=== PATIENT | female | born 1930 | race Caucasian/White ===

== ENCOUNTER 2016-10-20 21:05 | Inpatient (IN) ==
[2016-10-20] MEDS ORDERED: MORPHINE 2 MG/1 ML SYRINGE ONE (22:13)
[2016-10-20] MEDS ORDERED: MORPHINE 2 MG/1 ML SYRINGE IV STA (22:15)
--- NOTE | 2016-10-20 22:49 | CT Report ---
CT pelvis wo con Indication: Pain after falling injury Comparison: None available Technique: Axial CT imaging of the pelvis is performed without contrast. Computer reformatting is viewed in sagittal and coronal plane. Findings: No evidence of fracture seen. The alignment of the joints appears normal. Muscles and tendons appear within normal limits for CT. Mild bilateral hip degenerative change is present. No soft tissue abnormality is seen. Impression: No evidence of acute injury demonstrated. PROCEDURE INTERPRETED AT [facility] DEPARTMENT OF RADIOLOGY Final Report Signed by: Dr. Darien Jarvis
--- NOTE | 2016-10-20 23:54 | Emergency Department Note ---
Bravo Dietz Brooke, am scribing for, and in the presence of, Chery Wolf MD 21: 48. Maryann Dietz Leanne, MD, personally performed the services described in this documentation, ascribed by Kacey Cordon in my presence, and it is both accurate and complete 354 . Arrival - Arrival Chief Complaint: Fall ED Nursing Triage Note: C/C fall Saturday at home. Was seen at [place] yesterday for hip pain and sent home. Pt c/o hip pain that started in right hip and has moved to left hip. Mode of Arrival: Stretcher Limitations: No Limitations Source: Patient, Family, RN Notes Reviewed Time Seen by Provider: 10/20/16 21:33 - History of Present Illness HPI Narrative: Patient is a 86 year old female brought into the ED by EMS with c/o bilateral hip pain. Family says Patient fell out of bed onto her right side on Saturday. Patient went to [facility] ED on and Family says hip and pelvis x-rays were done but they were told Patient only had ecchymosis. Family says [facility] did not do any CT scans. Family wants a second opinion because of Patient not being able to stand or walk. Family says they are unable to get Patient up due to Patient not being able to walk. Family says Patient has been "getting worse" since a fall, three weeks ago, where she crushed her left hand. Patient has 7.5mg [place] that she has been taking for the pain but says they do not help with the hip pain. Patient has PMHx of cardiac dysrhythmia, CHF, HTN, NIDDM, and GERD. Onset (ago): day(s) (5) Allergies/Adverse Reactions: Allergies Allergy/AdvReac Type Severity Reaction Status Date / Time No Known Allergies Allergy Unverified 10/20/16 21:18 Review of System - Review of System 12 point system: reviewed and no additional remarkable complaints except as stated - Review of System Constitutional: Absent: fever Respiratory: Absent: respiratory distress Musculoskeletal: Present: other (bilateral hip pain) Skin: Absent: rash Medical,Surgical,& Family Hx - Medical History Cardio: History of: Cardiac Dysrhythmia, CHF, Hypertension Endocrine: History of: Diabetes Mellitus (NIDDM) Gastrointestinal: History of: GERD Musculoskeletal: History of: Musculoskeletal Problems (fx left arm) - Social History Smoking Status: Never smoker Frequency of Alcohol Use: None Type of Drug Use: None Exam Vital Signs: Vital Signs Temperature 98.4 F 10/20/16 21:05 Pulse Rate 90 10/20/16 21:05 Respiratory Rate 18 10/20/16 21:05 Blood Pressure 126/87 10/20/16 21:05 O2 Sat by Pulse Oximetry 94 L 10/20/16 21:05 - General General appearance: alert, in no apparent distress - Head Head exam: Present: atraumatic, normocephalic - Eye Eye exam: Present: normal appearance, PERRL, EOMI - ENT ENT exam: Present: normal exam - Neck Neck exam: Present: normal inspection - Chest Chest inspection: Present: normal inspection, symmetric chest wall rise - Respiratory Respiratory exam: Present: normal lung sounds bilaterally - Cardiovascular Cardiovascular exam: Present: regular rate, normal rhythm, normal heart sounds - Abdominal Exam Abdominal exam: Present: soft. Absent: distention, tenderness - Extremities Exam Extremities exam: Present: tenderness (right lateral hip tenderness) - Back Exam Back exam: Present: normal inspection - Neurological Exam Neurological exam: Present: alert, oriented X3 - Psychiatric Psychiatric exam: Present: normal affect, normal mood - Skin Skin exam: Present: warm, dry, intact, normal color Results - Diagnostic Findings Procedure: CT: report reviewed by me (CT pelvis wo con: No evidence of acute injury demonstrated.) Disposition Clinical Impression: Unable to ambulate, Left hip pain Case discussed with: patient Condition: Stable Additional Instructions: Admit to hospitalist for MRI
--- NOTE | 2016-10-21 02:23 | Hospitalist History & Physical ---
Assessment and Plan - Time spent with patient Time spent with patient: Greater than 30 minutes (1) Pain of both hip joints Problem details: due to fall, Rt> Lt Status: Acute Assessment and plan: r/o frx, MRI. No labs done in ER will do basic labs Current Visit: Yes (2) Recurrent falls Status: Acute Assessment and plan: PT/OT, likely to need placement, check Vit D, EKG, U/A, Current Visit: Yes (3) Debility, unspecified Status: Acute Current Visit: Yes (4) Arthritis Status: Acute Current Visit: Yes (5) HTN (hypertension) Status: Acute Current Visit: Yes History of Present Illness Chief complaint: hip pain History of present illness: Ms. Manning is a 86 year old female presented with unresolving hip pain first towards the right hip now the left hip also. Patient has a full number of days ago on Saturday reportedly on the right hip when [facility] and they did x- rays there and she was told there was no hip fracture and was discharged home. Patient stated now she has pain on the right hip as well as the left hip and she and her family wanted a second opinion. Of note few weeks ago patient had a fall and and had a fracture in her right upper extremity with cast on. Patient lives with her . Patient denies chest pain or SOB or nausea or vomiting or diarrhea or hemoptysis or melena or blurred vision or palpitation. CT scan of the pelvis done in the ER showed no evidence of fracture. Recommendation was to admit the patient to undergo MRI imaging. No laboratory testing/EKG done in ER. Home Medications Medication Instructions Recorded Confirmed Type Allopurinol 300 mg PO DAILY 10/21/16 10/21/16 History Cyanocobalamin Inj [Vitamin B12 1,000 mcg IM Q30D 10/21/16 10/21/16 History Inj] Diltiazem HCl [Diltiazem ER (12 120 mg PO DAILY 10/21/16 10/21/16 History hr)] Furosemide Tab [Lasix Tab] 80 mg PO BID 10/21/16 10/21/16 History Isosorbide Dinitrate 20 mg PO TID 10/21/16 10/21/16 History Nitroglycerin [Nitroglycerin SL 0.4 mg SL DIRECTED 10/21/16 10/21/16 History Tab] Omeprazole 20 mg PO DAILY 10/21/16 10/21/16 History Potassium Chloride 10 meq PO DAILY 10/21/16 10/21/16 History Spironolactone [Aldactone] 25 mg PO DAILY 10/21/16 10/21/16 History Warfarin [Coumadin] 2.5 mg PO DAILY 10/21/16 10/21/16 History metFORMIN [Glucophage] 1,000 mg PO DAILY 10/21/16 10/21/16 History Allergies Allergy/AdvReac Type Severity Reaction Status Date / Time No Known Allergies Allergy Unverified 10/20/16 21:18 Medical,Surgical,& Family Hx - Medical History Cardio: History of: Cardiac Dysrhythmia, CHF, Hypertension Endocrine: History of: Diabetes Mellitus (NIDDM) Gastrointestinal: History of: GERD Musculoskeletal: History of: Musculoskeletal Problems (fx left arm) - Social History Smoking Status: Never smoker Frequency of Alcohol Use: None Type of Drug Use: None 12 point system: reviewed and no additional remarkable complaints except as stated Exam - Constitutional Vitals: Period Temp Pulse Resp BP Sys/Ghotra Pulse Ox Last 24 Hr 98.4 F-98.4 F 90-90 18-18 126-126/87-87 94 Exam: General: a&ox3, NAD Neck: no jvd Heart: s1s2, RR Lung: ctab, no wheezing abd: soft, nontender, ND Ext: no edema. Pt couldn't lift any Lito due to pain. Tenderness of R hip >L Hip. LROM of Lito b/l Skin: Warm and dry HEENT: PERRLA Neuro: Limited. a&ox3, no sensory loss, LUEx has cast on. wiggle toes, can't lift either Lito.
[2016-10-21] MEDS ORDERED: ACETAMINOPHEN 325 MG TABLET PO PRN (02:34)
[2016-10-21] MEDS ORDERED: ONDANSETRON 4 MG/2 ML VIAL IV PRN (02:34)
[2016-10-21] MEDS ORDERED: DOCUSATE SODIUM 100 MG CAPSULE PO PRN (02:34)
[2016-10-21] MEDS: SODIUM CHLORIDE 0.9% 1,000 ML IV SCH ×2 (03:39→17:09)
[2016-10-21] MEDS ORDERED: DEXTROSE 50% 25 GM/50 ML VIAL IV PRN (04:43)
[2016-10-21] MEDS ORDERED: GLUCAGON 1 MG VIAL IM PRN (04:43)
[2016-10-21 05:53] LABS: Basophils % 0.3 % (0.0-0.8); Eosinophils # 0.2 10*3/uL (0.0-0.87); Eosinophils % 1.6 % (0.00-10.9); Hematocrit 31.8 VOL% (35.7-47.0); Hemoglobin 10.6 GM/DL (12.0-16.0); Immature Granulocytes % 1.2 %; Immature Granulocytes Absolute 0.12 #; Lymphocytes # 1.9 10*3/uL (1.4-4.0); Lymphocytes % 18.7 % (21.3-54.2); Mean Corpuscular HGB Conc 33.3 GM/DL (32-36); Mean Corpuscular Hemoglobin 33 PG (27-34); Mean Corpuscular Volume 98.1 FL (87-102); Mean Platelet Volume 10.4 FL (9.6-12.0); Monocytes # 0.6 10*3/uL (0.11-0.8); Monocytes % 5.8 % (1.7-12.7); Neutrophils # 7.4 10*3/uL (1.4-7.4); Neutrophils % 72.4 % (38.7-73.9); Platelet Count 278 T/CUMM (130-400); Red Blood Count 3.24 MC/CUMM (3.8-5.5); Red Cell Distribution Width 15.6 % (9.3-17.3); White Blood Count 10.2 T/CUMM (4-12)
[2016-10-21 06:54] LABS: Calcium 10.2 MG/DL (8.5-10.1); Osmolality,Calculated 292.4 MOS/KG (273-304); Potassium 3.9 MMOL/L (3.5-5.1)
[2016-10-21 07:20] LABS: PT Patient Result 80.4 SECS
[2016-10-21 07:24] LABS: INR 6.7; Partial Thromboplastin Time 112.3 SECS (0-40)
[2016-10-21] MEDS ORDERED: ENOXAPARIN 40 MG/0.4 ML SYRINGE SUBCUT SCH (09:00)
--- NOTE | 2016-10-21 09:40 | EKG Report ---
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
[2016-10-21] MEDS: ISOSORBIDE DINITRATE 20 MG TABLET PO SCH ×3 (09:58→21:14)
[2016-10-21] MEDS: ALLOPURINOL 300 MG TABLET PO SCH (09:58)
[2016-10-21] MEDS: DILTIAZEM CD 120 MG CAPSULE PO SCH (09:59)
[2016-10-21] MEDS: PANTOPRAZOLE 40 MG TABLET PO SCH (09:59)
[2016-10-21] MEDS: SPIRONOLACTONE 25 MG TABLET PO SCH (09:59)
[2016-10-21] MEDS: INSULIN LISPRO 100 UNIT/ML SUBCUT SCH ×4 (10:53→21:16)
--- NOTE | 2016-10-21 12:52 | Event Note ---
Patient seen and examined by me, Dr. Bedolla. 86 y/o WF with history of DVTs (on coumadin) admitted s/p fall last week. Her first fall 3 weeks ago was due to tripping over a rug, broke her left arm. Her fall last week was due to falling out of bed while asleep. She has a history of atrial fibrillation, on diltiazem. Her HR has increased some this afternoon, possibly due to pain. Will put her on telemetry for monitoring. She is on coumadin for a history of DVTs. Her INR is 6.7. Holding coumdin. Her falls at this point seem more mechanical than anything else. Will discuss with patient and family risk and benefits of continuing coumadin with recent fall history. Will order a MRI to further evaluate hip pain, if negative will start PT tomorrow. Given history of falls and this acute onset of weakness, unsure if not walking is only due to pain or something more, will order CT head to rule out a bleed. For pain will schedule tylenol 1000 Q8 hours. With Roxicodone 5 mg for breakthrough pain. She also has an AMANDA, unknown baseline, but per patient no history of kidney problems. Patient with decreased appetite over last few days, so possibly due to dehydration. Gentle hydration.
--- NOTE | 2016-10-21 13:59 | CT Report ---
CT brain Indication: Frequent falls Comparison: None available Technique: Axial CT imaging of the brain is performed without contrast with 3 mm increments. Findings: No evidence of hemorrhage, mass mass effect midline shift or acute infarct seen. There is moderate diffuse cerebral atrophy. There are faint areas of decreased density seen within the white matter typical of chronic microvascular changes. Otherwise the brain parenchyma attenuation and differentiation appears within normal limits. The ventricles and cisterns are normal in caliber. No cranial or skull base abnormality is identified. Impression: No evidence of acute infarct or acute process. PROCEDURE INTERPRETED AT [facility] DEPARTMENT OF RADIOLOGY Final Report Signed by: Dr. Darien Jarvis
[2016-10-21] MEDS: ACETAMINOPHEN 500 MG TABLET PO SCH ×2 (14:31→21:14)
[2016-10-21] MEDS ORDERED: WARFARIN 2.5 MG TABLET PO SCH (18:00)
[2016-10-22] MEDS: ACETAMINOPHEN 500 MG TABLET PO SCH ×3 (05:36→21:16)
[2016-10-22] MEDS: SODIUM CHLORIDE 0.9% 1,000 ML IV SCH (05:38)
[2016-10-22 06:39] LABS: Basophils % 0.5 % (0.0-0.8); Eosinophils # 0.2 10*3/uL (0.0-0.87); Eosinophils % 3.1 % (0.00-10.9); Hematocrit 30.1 VOL% (35.7-47.0); Hemoglobin 9.6 GM/DL (12.0-16.0); Immature Granulocytes % 0.5 %; Immature Granulocytes Absolute 0.04 #; Lymphocytes # 1.7 10*3/uL (1.4-4.0); Lymphocytes % 23.5 % (21.3-54.2); Mean Corpuscular HGB Conc 31.9 GM/DL (32-36); Mean Corpuscular Hemoglobin 32 PG (27-34); Mean Corpuscular Volume 101.3 FL (87-102); Mean Platelet Volume 10.7 FL (9.6-12.0); Monocytes # 0.5 10*3/uL (0.11-0.8); Monocytes % 6.2 % (1.7-12.7); Neutrophils # 4.9 10*3/uL (1.4-7.4); Neutrophils % 66.2 % (38.7-73.9); Platelet Count 248 T/CUMM (130-400); Red Blood Count 2.97 MC/CUMM (3.8-5.5); Red Cell Distribution Width 15.7 % (9.3-17.3); White Blood Count 7.4 T/CUMM (4-12)
[2016-10-22 07:09] LABS: Calcium 10.1 MG/DL (8.5-10.1); Magnesium 1.7 MG/DL (1.8-2.4); Osmolality,Calculated 292.1 MOS/KG (273-304); Potassium 3.9 MMOL/L (3.5-5.1)
[2016-10-22] MEDS: INSULIN LISPRO 100 UNIT/ML SUBCUT SCH ×4 (09:56→22:10)
[2016-10-22] MEDS: SPIRONOLACTONE 25 MG TABLET PO SCH (09:57)
[2016-10-22] MEDS: PANTOPRAZOLE 40 MG TABLET PO SCH (09:58)
[2016-10-22] MEDS: ALLOPURINOL 300 MG TABLET PO SCH (09:58)
[2016-10-22] MEDS: ISOSORBIDE DINITRATE 20 MG TABLET PO SCH ×3 (09:58→21:17)
[2016-10-22] MEDS: DILTIAZEM CD 120 MG CAPSULE PO SCH (09:58)
[2016-10-22 10:17] LABS: Amorphous Crystals,Urine Occasional /HPF (Few); Apearance,Urine CLOUDY (Clear); Bacteria,Urine Many /HPF (Few); Bilirubin,Urine Negative (Negative); Blood, Urine Small mg/dL (Negative); Glucose,Urine (UA) Negative (Negative); Ketones,Urine Negative (Negative); Mucus,Urine Occasional /LPF (Occasional); Nitrite,Urine Negative (Negative); Protein,Urine Negative; Squamous Epithelial Cell,Urine Few /HPF (0-10); Urine Specific Gravity 1.011 (1.001-1.035); Urine Urobilinogen < 2.0 EU/DL (0.2-1.0); WBC,Urine 7 /HPF (0-6)
[2016-10-22 10:18] LABS: Urine Color Yellow (Yellow)
--- NOTE | 2016-10-22 11:34 | Hospitalist Progress Note ---
Assessment and Plan (1) UTI (urinary tract infection) Status: Acute Assessment and plan: Rocephin. F/u urine culture Current Visit: Yes (2) Pain of both hip joints Problem details: due to fall, Rt> Lt Status: Acute Assessment and plan: S/p 2 falls over last few weeks. Xray at [facility] without acute process. CT with no acute process. F/u MRI. Possible this is bruising or arthtritis. Current Visit: Yes (3) Recurrent falls Status: Acute Assessment and plan: First was mechanical, second while asleep Monitoring on telemetry Current Visit: Yes (4) HTN (hypertension) Status: Acute Current Visit: Yes Hospitalist: Subjective Interval history: Patient feeling a little better today. CT head yesterday without acute process. Continue to hold coumadin for elevated INR. MRI hips pending. If negative, will start physical therapy. Family interested in swing bed placement. UA positive for UTI today, starting rocephin. Exam - Constitutional Vitals: Period Temp Pulse Resp BP Sys/Ghotra Pulse Ox Last 24 Hr 98.0 F-98.8 F 71-98 14-20 106-159/60-81 93-95 General appearance: under weight - Head Head exam: Present: normocephalic, atraumatic - Eye Eye exam: Present: EOMI Pupils: Present: ZENIA - ENT ENT exam: Present: normal exam - Neck Neck exam: Present: normal inspection. Absent: tenderness - Respiratory Respiratory exam: Present: clear to auscultation bilaterally - Cardiovascular Cardiovascular exam: Present: regular rate and rhythm - GI/Abdominal GI/Abdominal exam: Present: normal bowel sounds, soft - Extremities Exam Extremities exam: Present: normal inspection - Back Exam Back exam: Present: normal inspection - Neurological Exam Neurological exam: Present: alert, oriented X3 - Psychiatric Psychiatric exam: Present: normal affect, normal mood - Skin Skin exam: Present: warm, intact Results - Labs CBC & BMP: 10/22/16 05:17 10/22/16 05:17
[2016-10-22] MEDS: cefTRIAXone 1,000 MG in SODIUM CHLORIDE 0.9% 100 ML IV SCH (16:34)
[2016-10-22] MEDS: DESITIN 4OZ/NYSTATIN 15 GRAM MIXTURE PASTE TOP SCH ×2 (18:28→21:20)
[2016-10-23] MEDS: oxyCODONE IR 5 MG TABLET PO PRN ×3 (01:50→20:33)
[2016-10-23] MEDS: SODIUM CHLORIDE 0.9% 1,000 ML IV SCH ×2 (01:51→05:28)
[2016-10-23] MEDS: ACETAMINOPHEN 500 MG TABLET PO SCH ×3 (06:07→23:23)
[2016-10-23 06:24] LABS: Basophils % 0.4 % (0.0-0.8); Eosinophils # 0.2 10*3/uL (0.0-0.87); Eosinophils % 2.8 % (0.00-10.9); Hematocrit 28.4 VOL% (35.7-47.0); Hemoglobin 9.1 GM/DL (12.0-16.0); Immature Granulocytes % 0.6 %; Immature Granulocytes Absolute 0.04 #; Lymphocytes # 1.7 10*3/uL (1.4-4.0); Lymphocytes % 24.5 % (21.3-54.2); Mean Corpuscular Hemoglobin 32 PG (27-34); Mean Corpuscular Volume 100.7 FL (87-102); Mean Platelet Volume 10.4 FL (9.6-12.0); Monocytes # 0.4 10*3/uL (0.11-0.8); Monocytes % 5.4 % (1.7-12.7); Neutrophils # 4.5 10*3/uL (1.4-7.4); Neutrophils % 66.3 % (38.7-73.9); Platelet Count 248 T/CUMM (130-400); Red Blood Count 2.82 MC/CUMM (3.8-5.5); Red Cell Distribution Width 15.7 % (9.3-17.3); White Blood Count 6.9 T/CUMM (4-12)
[2016-10-23 06:37] LABS: INR 4.5
[2016-10-23 07:27] LABS: Calcium 8.8 MG/DL (8.5-10.1); Magnesium 1.6 MG/DL (1.8-2.4); Osmolality,Calculated 296.6 MOS/KG (273-304); Potassium 3.9 MMOL/L (3.5-5.1)
--- NOTE | 2016-10-23 08:14 | Hospitalist Progress Note ---
Assessment and Plan (1) Recurrent falls Status: Acute Current Visit: Yes (2) DVT (deep venous thrombosis) Status: Chronic Assessment and plan: Chronic coumadin use with prolonged INR at admission. Current Visit: Yes (3) UTI (urinary tract infection) Status: Acute Assessment and plan: Culture positive for gram positive cocci Current Visit: Yes Hospitalist: Subjective Interval history: 86 yo female with history of DVT on chronic coumadin with recent falls with injury. Admitted with continuing pelvic and hip pain with negative plain films at outside facility and negative CT of head and pelvis done here. She has prolonged INR at admission with mild renal dysfunction and stable anemia. Apparently request for MRI of hip area but may not have been ordered. She has no additional complaints this morning and INR has fallen 4.5 Preliminary urine culture positive for GPC Exam - Constitutional Vitals: Period Temp Pulse Resp BP Sys/Ghotra Pulse Ox Last 24 Hr 97.8 F-98.5 F 67-74 18-18 111-159/67-78 95-97 General appearance: over weight - Respiratory Respiratory exam: Present: clear to auscultation bilaterally. Absent: rales, rhonchi, wheezes - Cardiovascular Cardiovascular exam: Present: regular rate and rhythm, systolic murmur (2/6 late systolic murmur) - GI/Abdominal GI/Abdominal exam: Present: normal bowel sounds. Absent: distended, tenderness - Extremities Exam Extremities exam: Absent: edema - Neurological Exam Neurological exam: Present: alert, oriented X3 - Psychiatric Psychiatric exam: Present: normal affect, normal mood Results - Labs CBC & BMP: 10/23/16 06:02 10/23/16 06:02 Labs: INR 4.5
[2016-10-23] MEDS: INSULIN LISPRO 100 UNIT/ML SUBCUT SCH ×4 (09:04→20:33)
[2016-10-23] MEDS: SPIRONOLACTONE 25 MG TABLET PO SCH (09:10)
[2016-10-23] MEDS: ALLOPURINOL 300 MG TABLET PO SCH (09:11)
[2016-10-23] MEDS: ISOSORBIDE DINITRATE 20 MG TABLET PO SCH ×3 (09:11→20:33)
[2016-10-23] MEDS: DILTIAZEM CD 120 MG CAPSULE PO SCH (09:11)
[2016-10-23] MEDS: PANTOPRAZOLE 40 MG TABLET PO SCH (09:11)
[2016-10-23] MEDS: DESITIN 4OZ/NYSTATIN 15 GRAM MIXTURE PASTE TOP SCH ×2 (10:30→20:38)
--- NOTE | 2016-10-23 12:04 | XRay Report ---
Referring Physician: Alessio Ames MD Exam: XR orbits for mri 3 views Date: October 23, 2016 at 10:00 AM Reason: MRI of hips, MRI clearance, evaluate for foreign body within orbits Comparison: CT brain without contrast October 21, 2016 Findings: No radiopaque foreign body is identified within either orbit. There is mucosal thickening within the inferior aspect of the right maxillary sinus, but no definite air-fluid levels are seen at the paranasal sinuses. There appears to be diffuse demineralization/osteoporosis, but no acute fracture or definite osseous destructive process is identified. Impression: No radiopaque foreign body is identified within either orbit. PROCEDURE INTERPRETED AT [facility] DEPARTMENT OF RADIOLOGY Final Report Signed by: Dr. Kenneth Nielsen
[2016-10-23] MEDS: cefTRIAXone 1,000 MG in SODIUM CHLORIDE 0.9% 100 ML IV SCH (13:59)
[2016-10-24] MEDS: ACETAMINOPHEN 500 MG TABLET PO SCH ×3 (05:16→21:25)
--- NOTE | 2016-10-24 08:22 | Hospitalist Progress Note ---
Assessment and Plan (1) Recurrent falls Status: Acute Current Visit: Yes (2) DVT (deep venous thrombosis) Status: Chronic Assessment and plan: Chronic coumadin use with prolonged INR at admission. Current Visit: Yes (3) UTI (urinary tract infection) Status: Acute Assessment and plan: Culture positive for gram positive cocci Current Visit: Yes Hospitalist: Subjective Interval history: 86 yo female on coumadin chronically for history of DVT who has been experiencing recurrent falls. Fracture of left wrist addressed prior to most recent fall where she is left with continuing hip pain-this AM on the left. Did not accept MRI of pelvis yesterday (other imaging studies negative). INR was prolonged on admission and has fallen to 3.0 this AM. Urine culture reported to show GPC, identification pending. Exam - Constitutional Vitals: Period Temp Pulse Resp BP Sys/Ghotra Pulse Ox Last 24 Hr 97.7 F-98.7 F 67-76 12-18 121-139/66-82 94-99 General appearance: over weight - Respiratory Respiratory exam: Present: clear to auscultation bilaterally. Absent: rales, rhonchi, wheezes - Cardiovascular Cardiovascular exam: Present: regular rate and rhythm, systolic murmur (2/6 systolic murmur) - GI/Abdominal GI/Abdominal exam: Present: normal bowel sounds. Absent: distended, tenderness - Extremities Exam Extremities exam: Absent: edema - Neurological Exam Neurological exam: Present: alert Results - Labs CBC & BMP: 10/23/16 06:02 10/23/16 06:02 Labs: INR 3.0
--- NOTE | 2016-10-24 09:06 | XRay Report ---
Portable chest Date: 10/24/2016 Clinical history: Shortness of breath Comparison: 10/28/2013 Technique: Portable AP sitting chest Findings: Stable cardiomegaly with uncoiling of the aorta. Chronic scarring in the lungs with stable mediastinum and osseous structures. Impression: No significant change in the appearance the chest when compared to the previous exam. Stable cardiomegaly with chronic scarring. It is difficult to exclude recurrent minimal edema at the left lung base. PROCEDURE INTERPRETED AT [facility] DEPARTMENT OF RADIOLOGY Final Report Signed by: Dr. Milagros Yañez
[2016-10-24] MEDS: INSULIN LISPRO 100 UNIT/ML SUBCUT SCH ×4 (09:18→21:26)
[2016-10-24] MEDS: DILTIAZEM CD 120 MG CAPSULE PO SCH (09:20)
[2016-10-24] MEDS: SPIRONOLACTONE 25 MG TABLET PO SCH (09:20)
[2016-10-24] MEDS: ALLOPURINOL 300 MG TABLET PO SCH (09:21)
[2016-10-24] MEDS: PANTOPRAZOLE 40 MG TABLET PO SCH (09:21)
[2016-10-24] MEDS: DESITIN 4OZ/NYSTATIN 15 GRAM MIXTURE PASTE TOP SCH ×2 (09:21→21:29)
[2016-10-24] MEDS: ISOSORBIDE DINITRATE 20 MG TABLET PO SCH ×3 (09:21→21:25)
[2016-10-24] MEDS ORDERED: WARFARIN 2 MG TABLET PO SCH (18:00)
[2016-10-24] MEDS: oxyCODONE IR 5 MG TABLET PO PRN (20:02)
[2016-10-25] MEDS: oxyCODONE IR 5 MG TABLET PO PRN (03:47)
[2016-10-25 05:24] LABS: INR 2.3
[2016-10-25 05:25] LABS: PT Patient Result 25.3 SECS
[2016-10-25] MEDS: ACETAMINOPHEN 500 MG TABLET PO SCH ×2 (05:41→14:16)
--- NOTE | 2016-10-25 06:50 | Hospitalist Progress Note ---
Assessment and Plan (1) Recurrent falls Status: Acute Current Visit: Yes (2) DVT (deep venous thrombosis) Status: Chronic Assessment and plan: Chronic coumadin use with prolonged INR at admission. Coumadin resumed 10/24. Current Visit: Yes (3) UTI (urinary tract infection) Status: Acute Assessment and plan: Culture positive for gram positive cocci, culture has returned with Staph epi ( probable contaminate) Current Visit: Yes Hospitalist: Subjective Interval history: 86 yo female on chronic coumadin for history of DVT, experiencing increasing frequency of falls with recent left wrist fracture (cast) and more recent fall with continuing hip pain. All imaging to date negative, MRI refused. Seems to have less pain, more mobile this morning. INR elevated at admission, coumadin resumed at lower dose 10/24 with INR 2.3 this morning. Exam - Constitutional Vitals: Period Temp Pulse Resp BP Sys/Ghotra Pulse Ox Last 24 Hr 96.8 F-98.6 F 66-87 16-20 102-132/54-72 95-99 General appearance: over weight - Respiratory Respiratory exam: Present: clear to auscultation bilaterally. Absent: rales, rhonchi, wheezes - Cardiovascular Cardiovascular exam: Present: regular rate and rhythm, systolic murmur (2/6 systolic murmur, late systolic) - GI/Abdominal GI/Abdominal exam: Present: normal bowel sounds. Absent: distended, tenderness - Extremities Exam Extremities exam: Absent: edema - Neurological Exam Neurological exam: Present: alert Results - Labs CBC & BMP: 10/23/16 06:02 10/23/16 06:02 Labs: INR 2.3
[2016-10-25] MEDS: INSULIN LISPRO 100 UNIT/ML SUBCUT SCH ×3 (07:40→16:54)
[2016-10-25] MEDS: DILTIAZEM CD 120 MG CAPSULE PO SCH (09:30)
[2016-10-25] MEDS: PANTOPRAZOLE 40 MG TABLET PO SCH (09:30)
[2016-10-25] MEDS: ISOSORBIDE DINITRATE 20 MG TABLET PO SCH ×2 (09:30→14:16)
[2016-10-25] MEDS: DESITIN 4OZ/NYSTATIN 15 GRAM MIXTURE PASTE TOP SCH (09:30)
[2016-10-25] MEDS: SPIRONOLACTONE 25 MG TABLET PO SCH (09:30)
[2016-10-25] MEDS: ALLOPURINOL 300 MG TABLET PO SCH (09:30)
--- NOTE | 2016-10-25 16:16 | Discharge Summary ---
Hospital Course - Hospital Course Hospital Course: 86 yo female on chronic coumadin for history of DVT. Admitted with frequent falls with recent left wrist fracture. INR prolonged at admission with adjustments with therapeutic INR at discharge. She is being released for rehab hospitalization. Diagnosis - Discharge Diagnosis (1) Recurrent falls Status: Acute (2) DVT (deep venous thrombosis) Status: Chronic (3) UTI (urinary tract infection) Status: Acute Discharge Plan - Discharge Data Disposition: Disch/Xfer-Ip Rehab Fac Condition at Discharge: Stable Discharge Diet: advance to your usual diet Activity: as per physical therapy - Discharge Medications New Warfarin [Coumadin] 2 mg PO DAILY@1800 #30 tablet Continue metFORMIN [Glucophage] 1,000 mg PO DAILY Spironolactone [Aldactone] 25 mg PO DAILY Potassium Chloride 10 meq PO DAILY Nitroglycerin [Nitroglycerin SL Tab] 0.4 mg SL DIRECTED Isosorbide Dinitrate 20 mg PO TID Diltiazem HCl [Diltiazem ER (12 hr)] 120 mg PO DAILY Allopurinol 300 mg PO DAILY Cyanocobalamin Inj [Vitamin B12 Inj] 1,000 mcg IM Q30D Omeprazole 20 mg PO DAILY Discontinued Warfarin [Coumadin] 2.5 mg PO DAILY Furosemide Tab [Lasix Tab] 80 mg PO BID - Follow Up or Referral - Forms/Instructions Exam - Constitutional Vitals: Period Temp Pulse Resp BP Sys/Ghotra Pulse Ox Last 24 Hr 96.8 F-98.6 F 65-72 16-18 99-132/54-71 95-98 Discharge Results Procedures and tests throughout hospitalization: Pending Orders 10/26/16 04:00 Prothrombin Time INR IN AM Labs on day of discharge: Labs from last 24 hours 10/25/16 10/25/16 10/25/16 11:21 07:05 04:46 INR 2.3 PT Patient/Control Mix 25.3 D POC Glucose 152 H 89 10/24/16 10/24/16 20:10 16:05 INR PT Patient/Control Mix POC Glucose 160 H 141 H DS: Provider Date of admission: 10/21/16 02:34 Primary care physician: . No PCP Attending physician on admission: Kannan Ivory Consults: 10/21/16 03:43 Consult to Dietitian [CONS] Routine Reason for Dietitian: Supplements and/or Snacks 10/21/16 07:05 Consult to Pharmacy [CONS] Routine Reason for Pharmacy Consult: Adjust Meds Renal Funct 10/22/16 09:25 Consult to Case Mgmt/Social Srvs [CONS] Routine Reason for Case Mgmt/Social Srvs: Swingbed/SNF/Long Term Discharging clinician: Alessio Ames MD Expected date of discharge: 10/25/16
[2016-10-25 17:17] VITALS: BP 158/81
--- NOTE | 2016-10-30 16:04 | Physician Query Form ---
CLICK EDIT DOCUMENT TO SELECT QUERY ANSWER --> OK --> SIGN Bridget Brown RN Clinical Venereal Disease Control Head W) [phone] (f) [phone] [email or web address] PROVIDERS: Make your selection(s) from the choices in EACH section by typing an "x" and enter comments in the comment section. Please use your independent medical judgment in providing your response. This request does not imply that any particular answer is desired or expected. CLINICAL INDICATORS: (Providers should not edit this section) Based on documentation of "Acute pain of both hip joints" "Acute recurrent falls" "Acute arthritis" Based on the above, could you clarify the appropriate diagnosis, if significant , that supports the above abnormalities and additional evaluation, monitoring, and/or treatment rendered: ( ) Hip pain due to Osteoarthritis ( ) Hip pain due to Falls ( ) Hip pain due to Degeneration ( ) Hip pain due to other (please specify) ( ) Other, please specify: ( x) Clinically unable to determine COMMENTS: Use of terms such as suspected, likely, or probable (associated with a specific diagnosis that is being evaluated, monitored, or treated as if it exists) are acceptable and can be restated in the discharge summary if not ruled out. MTDD
== END 2016-10-25 17:47 | DRG 556 ==
LOC: N.ED 21:05 → SUATTDRO 10-21 02:34 → N.EDINP 10-21 02:34 → N.3E 10-21 03:08
PROVIDERS: ADMIT Student in an Organized Health Care Education/Training Program; ATTEND Internal Medicine Cardiovascular Disease

== ENCOUNTER 2017-04-02 10:38 | Observation (INO) ==
--- NOTE | 2017-04-02 12:15 | XRay Report ---
XR chest 1V portable Indication: Fall. Chest one view: Comparison 10/24/2016. Heart size remains normal. Prominence of hilar structures, tortuous calcification of thoracic aorta and pulmonary hypoinflation are unchanged as well. No new infiltrates. No displaced fractures are seen. However, suspect hairline fracture of the left humeral head. Impression: Stable pulmonary hypoinflation, hilar prominence and tortuous thoracic aorta. Hairline fracture left humeral head. PROCEDURE INTERPRETED AT [facility] DEPARTMENT OF RADIOLOGY Final Report Signed by: Jenaro Swanson M.D.
--- NOTE | 2017-04-02 12:20 | CT Report ---
CT head/brain wo con Indication: Fall. CT BRAIN WITHOUT CONTRAST DLP: 1556 mGy*cm. One or more of the following dose reduction techniques was used: Automated exposure control, adjustment of the mA and/or kV according the patient size, or use of iterative reconstruction techniques. Comparison: 10/21/2016. Date of admission: 04/02/2017. Technique: Axial noncontrast CT images of the brain were obtained. Findings: No acute intracranial hemorrhage, mass or mass effect. Generalized atrophy and patchy small vessel ischemic change in the deep white matter noted diffusely. 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 Calcification of the [place] structures noted. Soft tissue swelling right forehead is present and mild. No underlying fractures. Mastoid air cells, left maxillary, ethmoid and frontal sinuses are clear. Air-fluid level in the right maxillary sinus is present. Impression: 1. No acute intracranial pathology. Chronic generalized atrophy and small vessel ischemic change. 2. 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 3. Air-fluid level right maxillary sinus. PROCEDURE INTERPRETED AT [facility] DEPARTMENT OF RADIOLOGY Final Report Signed by: Jenaro Swanson M.D.
--- NOTE | 2017-04-02 12:21 | XRay Report ---
XR elbow 2V LT Indication: Fall. Left elbow 2 views: Soft tissue swelling is present. No joint effusion seen. No acute fracture or dislocation. Impression: Mild soft tissue swelling. PROCEDURE INTERPRETED AT [facility] DEPARTMENT OF RADIOLOGY Final Report Signed by: Jenaro Swanson M.D.
--- NOTE | 2017-04-02 12:23 | XRay Report ---
XR humerus LT Indication: Fall. Left humerus 2 views: Humerus shows no evidence of fracture or dislocation. The chest x-ray suggested a hairline fracture humeral head which is not confirmed on the 2 views of the humerus. Soft tissues are unremarkable. Impression: Negative left humerus. PROCEDURE INTERPRETED AT [facility] DEPARTMENT OF RADIOLOGY Final Report Signed by: Jenaro Swanson M.D.
--- NOTE | 2017-04-02 12:24 | XRay Report ---
XR forearm LT Indication: Fall. Left forearm 2 views: Transverse displaced fractures of the distal radius and ulna are present. Some of the fracture margins are rounded in appear chronic in nature and there is only minimal soft tissue swelling in the region. Multiple phleboliths are present in the soft tissues of the forearm and there is vascular calcinosis as well. Impression: Healing distal radius and ulna fractures. Acute on chronic injury suspect. Consider dedicated wrist films. PROCEDURE INTERPRETED AT [facility] DEPARTMENT OF RADIOLOGY Final Report Signed by: Jenaro Swanson M.D.
--- NOTE | 2017-04-02 12:26 | XRay Report ---
XR knee 2V BI Indication: Fall. Bilateral knees, 2 views each, 4 views total: Significant calcified atheromatous disease the femoral-popliteal system is present bilaterally. Left knee medial compartment joint space narrowing is mild. No significant osteophyte development of either knee. No fracture or dislocation on either side. Soft tissue swelling of the prepatellar left knee bursa is noted. No significant joint effusion on either side. Impression: Mild left knee medial compartment osteoarthritis. Prepatellar soft tissue swelling left knee. PROCEDURE INTERPRETED AT [facility] DEPARTMENT OF RADIOLOGY Final Report Signed by: Jenaro Swanson M.D.
--- NOTE | 2017-04-02 12:27 | CT Report ---
Exam: CT cervical spine without contrast Date: 04/02/2017 Comparison: None Reason: Neck pain, neck injury, fall Technique: Axial images of the cervical spine were obtained without the use of contrast. Sagittal and coronal reformatted images were also acquired. Total DLP is 275 mGy*cm. Findings: 2.45 mm anterolisthesis of C4 relationship to C5. Osteopenia with sclerosis and osteophytes. No definite fracture or spinal cord pathology is identified. Arterial calcifications are noted. Multiple hypodensities are noted in the thyroid gland with associated calcifications. At C2-C3, no neuroforaminal narrowing or spinal canal stenosis is identified. At C3-C4, minimal osteophyte/disc complex which contacts the thecal sac. No spinal stenosis with minimal right and moderately severe left foraminal stenosis. At C4-C5, diffuse osteophyte/disc complex which compresses the thecal sac. No spinal stenosis with moderate bilateral foraminal stenosis. At C5-C6, diffuse osteophyte/disc complex which compresses the spinal cord. Minimal spinal stenosis with moderate bilateral foraminal stenosis. At C6-C7, diffuse osteophyte/disc complex which compresses the spinal cord. Minimal spinal stenosis with moderate right and moderately severe left foraminal stenosis. At C7-T1, no neuroforaminal narrowing or spinal canal stenosis is identified. Impression: 2.45 mm is anterolisthesis of C4 relationship to C5. No definite fracture is identified. This finding is probably related to the multilevel DDD as above noted. Osteopenia. This CT exam was performed using one or more of the following dose reduction techniques: Automatic exposure control, adjustment of the MA and/or KV according to patient size, or use of iterative reconstruction technique. PROCEDURE INTERPRETED AT [facility] DEPARTMENT OF RADIOLOGY Final Report Signed by: Dr. Milagros Yañez
--- NOTE | 2017-04-02 12:29 | CT Report ---
CT facial bones wo con Indication: Fall. CT FACE WITHOUT CONTRAST DLP: 1556 mGy*cm. One or more of the following dose reduction techniques was used: Automated exposure control, adjustment of the mA and/or kV according the patient size, or use of iterative reconstruction techniques. Technique: Axial noncontrast CT images of the face were obtained. Coronal reconstructions were provided. Comparison: None Findings: There is a right orbital floor fracture, displaced only 1 mm. Mucosal thickening and a fluid level in right maxillary sinus is present. Inferior rectus muscle is not entrapped by CT. Left orbit is intact without acute injury. Both globes are symmetric and properly situated. No postconal fat inflammation of either orbit. Soft tissue swelling the right periorbital tissues noted. No nasal bone fractures. Nasal septum is midline. Ethmoid, left maxillary and frontal sinuses are clear. Mastoid air cells are clear. No mandible fracture. Zygomatic complexes are intact. Temporomandibular joints are properly aligned. Significant calcified atheromatous disease of both carotid bifurcations noted. Impression: Right orbital floor fracture. Reactive right maxillary sinus mucosal thickening and fluid. PROCEDURE INTERPRETED AT [facility] DEPARTMENT OF RADIOLOGY Final Report Signed by: Jenaro Swanson M.D.
[2017-04-02] MEDS ORDERED: LIDOCAINE 1%/EPI INJ 20 ML VIAL ONE (12:46)
[2017-04-02] MEDS ORDERED: TISSUE ADHESIVE 1 EACH APPLICATOR TOP ONE (12:54)
--- NOTE | 2017-04-02 13:05 | Emergency Department Note ---
Kishan Dietz Brittany, am scribing for, and in the presence of, Manuelito Davis MD 10:58. Ryan Dietz Phillip K, MD, personally performed the services described in this documentation, ascribed by Ivy Holley in my presence, and it is both accurate and complete 304 . Arrival - Arrival Chief Complaint: Fall Stated Complaint: fall ED Nursing Triage Note: Patient was at home and fell in the kitchen she landed on the kitchen floor; she reports she was standing at the stove, she begin to turn around and fell face forward; she denies loss of consciousness, dizziness, or nausea. Laceration present nose, above left eyebrow, left arm immobilized, and c/o left hip pain. Mode of Arrival: Stretcher Limitations: No Limitations Source: Patient, RN Notes Reviewed - History of Present Illness HPI Narrative: Patient is a 86 y/o white female presenting to the ED via EMS for further evaluation s/p fall. Patient was at home when she was standing at the stove and upon turning around lost her footing and took a fall, landing face forward onto the kitchen floor. Patient denies having any LOC, vertigo, or nausea prior to this fall. Patient does have some neck pain, left arm pain, and bilateral knee pain L>R, denies any chest pain, abdominal pain, back pain or hip pain. Patient sustained a laceration just at the lateral aspect of the nose and above the lower forehead. Patient's left arm was immobilized on the scene per EMS. Patient was not able to ambulate s/p fall. No other complaints. Allergies/Adverse Reactions: Allergies Allergy/AdvReac Type Severity Reaction Status Date / Time latex Allergy RASH Verified 10/21/16 06:23 Home Medications: Home Medications Medication Instructions Recorded Confirmed Type Allopurinol 300 mg PO DAILY 10/21/16 10/21/16 History Cyanocobalamin Inj [Vitamin B12 1,000 mcg IM Q30D 10/21/16 10/21/16 History Inj] Isosorbide Dinitrate 20 mg PO TID 10/21/16 10/21/16 History Nitroglycerin [Nitroglycerin SL 0.4 mg SL DIRECTED 10/21/16 10/21/16 History Tab] Omeprazole 20 mg PO DAILY 10/21/16 10/21/16 History Potassium Chloride 10 meq PO DAILY 10/21/16 10/21/16 History Spironolactone [Aldactone] 25 mg PO DAILY 10/21/16 10/21/16 History dilTIAZem HCl [Diltiazem ER (12 120 mg PO DAILY 10/21/16 10/21/16 History hr)] metFORMIN [Glucophage] 1,000 mg PO DAILY 10/21/16 10/21/16 History Warfarin [Coumadin] 2 mg PO DAILY@1800 #30 tablet 10/25/16 Rx Review of System - Review of System 12 point system: reviewed and no additional remarkable complaints except as stated - Review of System Constitutional: Absent: weakness Gastrointestinal: Absent: nausea Musculoskeletal: Present: leg pain (L hip). Absent: back pain, neck pain Neurological: Absent: vertigo Medical,Surgical,& Family Hx - Medical History Cardio: History of: CHF, Hypertension Endocrine: History of: Diabetes Mellitus (NIDDM) Rheumatology: History of;: Gout, Rheumatoid Arthritis Gastrointestinal: History of: GERD Musculoskeletal: No history of: Amputation - Surgical History Cardiac Surgeries: Patient Denies: Femoral-Popliteal Bypass Graft, Cardiac Catheterization, Cardiac Surgery, Carotid Endarterectomy, Internal Defibrillator, Vascular Access Devices Thoracic Surgeries: Patient denies;: Organ Transplant, Lobectomy Neurologic Surgeries: Patient denies: Neurologic Surgery HEENT Surgeries: Patient denies: Carotid Endarterectomy, Thyroid Surgery Abdominal Surgeries: Patient denies: Abdominal Surgery, Splenectomy Reproductive Surgeries: Surgical HX of;: Hysterectomy Patient denies;: Genitourinary Surgery - Family History Family History: Reports;: Family Diabetes, Family Heart Disease, Family Hypertension - Social History Smoking Status: Never smoker Frequency of Alcohol Use: None Type of Drug Use: None Exam Vital Signs: Vital Signs Temperature 98.9 F 04/02/17 10:39 Pulse Rate 90 04/02/17 14:30 Respiratory Rate 18 04/02/17 14:30 Blood Pressure 142/80 04/02/17 14:30 O2 Sat by Pulse Oximetry 100 04/02/17 14:30 - General General appearance: alert, in no apparent distress - Head Head exam: Present: normocephalic. Absent: atraumatic (1.5 cm laceration to lower forehead between the eyes and superficial laceration to the lateral aspect of the nose) - Eye Eye exam: Present: normal appearance, PERRL, EOMI - ENT ENT exam: Present: normal exam, normal oropharynx - Neck Neck exam: Present: trachea midline. Absent: full ROM (unable to assess secondary to immobilization with C-collar) - Chest Chest inspection: Present: normal inspection, symmetric chest wall rise - Respiratory Respiratory exam: Present: normal lung sounds bilaterally - Cardiovascular Cardiovascular exam: Present: regular rate, normal rhythm, murmur (3/6 systolic ejection murmur). Absent: normal heart sounds - Abdominal Exam Abdominal exam: Present: soft, normal bowel sounds. Absent: tenderness - Extremities Exam Extremities exam: Present: tenderness (On palpation of the left humeral head.). Absent: normal inspection (hematoma and ecchymosis noted to bilateral knees), full ROM (Pain on range of motion of the left shoulder and left wrist.) - Back Exam Back exam: Present: normal inspection - Neurological Exam Neurological exam: Present: alert, oriented X3, CN II-XII intact. Absent: motor sensory deficit - Psychiatric Psychiatric exam: Present: normal affect, normal mood - Skin Skin exam: Present: warm, dry Course Course Narrative: Patient had wrist x-rays done and I was not aware of the results after she had gone to the floor. She had some previous fractures to her left wrist according to her. She did complain of some mild pain in her left wrist today. Procedures - Laceration Laceration 1 Site: face Size (cm): 1.5 Description: linear Depth: simple, single layer Local Anesthetic: lidocaine 1% Amount of Anesthesia Used (mL): 3 Skin layer closed with: nylon Size: 6-0 Number of sutures: 3 Technique: simple, interrupted Results - Labs CBC & BMP: 04/02/17 10:59 04/02/17 10:56 Lab Results: I have reviewed the patients labs Labs: Laboratory Tests 04/02/17 04/02/17 10:56 10:56 WBC 7.5 RBC 3.51 L Hgb 11.5 L Hct 34.5 L Plt Count 207 Sodium 136 Potassium 4.3 Chloride 100 Carbon Dioxide 29 BUN 36 H Creatinine 1.40 H BUN/Creatinine Ratio 25.00 H Glucose 140 H Calcium 10.4 H - EKG EKG results: interpreted by JOLIE, sinus rhythm (Intraventricular conduction delay) - Diagnostic Findings Procedure: CT: report reviewed by me (CT Head: 1. No acute intracranial pathology. Chronic generalized atrophy and small vessel ischemicchange. 2. 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 3. Air-fluid level right maxillary sinus. Face CT: Right orbital floor fracture. Reactive right maxillary sinus mucosal thickening and fluid. Cervical Spine CT: 2.45 mm is anterolisthesis of C4 relationship to C5. No definite fracture is identified. This finding is probably related tothe multilevel DDD as above noted. Osteopenia.), X-ray: report reviewed by me (Humerus XR: Negative left humerus. Forearm XR: Healing distal radius and ulna fractures. Acute on chronic injury suspect. Consider dedicated wrist films. Elbow XR: Mild soft tissue swelling. Chest XR: Stable pulmonary hypoinflation, hilar prominence and tortuous thoracic aorta. Hairline fracture left humeral head. ) Disposition Clinical Impression: Laceration, Bilateral knee contusions, Questionable fracture left humeral head , Fracture of right orbital floor, Fracture of left wrist Case discussed with: patient Disposition: Still a Patient Condition: Guarded
[2017-04-02] MEDS ORDERED: ONDANSETRON 4 MG/2 ML VIAL IV PRN (13:16)
[2017-04-02] MEDS ORDERED: ACETAMINOPHEN 325 MG TABLET PO PRN (13:16)
[2017-04-02] MEDS ORDERED: MORPHINE 2 MG/1 ML SYRINGE ONE (13:22)
[2017-04-02] MEDS ORDERED: ONDANSETRON 4 MG/2 ML VIAL ONE (13:22)
[2017-04-02 13:25] LABS: Basophils % 0.5 % (0.0-0.8); Eosinophils # 0.2 10*3/uL (0.0-0.87); Eosinophils % 2.3 % (0.00-10.9); Hematocrit 34.5 VOL% (35.7-47.0); Hemoglobin 11.5 GM/DL (12.0-16.0); Immature Granulocytes % 0.7 %; Immature Granulocytes Absolute 0.05 #; Lymphocytes # 2.8 10*3/uL (1.4-4.0); Lymphocytes % 36.9 % (21.3-54.2); Mean Corpuscular HGB Conc 33.3 GM/DL (32-36); Mean Corpuscular Hemoglobin 33 PG (27-34); Mean Corpuscular Volume 98.3 FL (87-102); Mean Platelet Volume 11.8 FL (9.6-12.0); Monocytes # 0.4 10*3/uL (0.11-0.8); Monocytes % 5.8 % (1.7-12.7); Neutrophils % 53.8 % (38.7-73.9); Platelet Count 207 T/CUMM (130-400); Red Blood Count 3.51 MC/CUMM (3.8-5.5); Red Cell Distribution Width 15.9 % (9.3-17.3); White Blood Count 7.5 T/CUMM (4-12)
[2017-04-02] MEDS: MORPHINE 2 MG/1 ML SYRINGE IV PRN (13:29)
[2017-04-02 13:34] LABS: Calcium 10.4 MG/DL (8.5-10.1); Potassium 4.3 MMOL/L (3.5-5.1)
--- NOTE | 2017-04-02 14:15 | XRay Report ---
Left shoulder, 2 views. Indication: Injury with pain. The osseous structures are diffusely demineralized. There are degenerative changes present at the acromioclavicular joint and the inferior glenohumeral joint. There is an acute mildly impacted fracture of the left femoral head and neck. No dislocation. Impression: Acute, mildly impacted left humeral head and neck fracture. PROCEDURE INTERPRETED AT [facility] DEPARTMENT OF RADIOLOGY Final Report Signed by: Dr. Marge Banegas
--- NOTE | 2017-04-02 14:21 | General Surg History&Physical ---
Assessment and Plan - Time spent with patient Time spent with patient: Greater than 30 minutes (1) Acute on chronic left wrist fracture Status: Acute Assessment and plan: 86-year-old white female with history of diabetes, hypertension, A. 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 Virk through the emergency room after a fall with right orbital floor fracture and acute on chronic left wrist fracture, forehead laceration, left shoulder and bilateral knee pain. Patient will be admitted for pain control. She will also have evaluation from Dr. Mckeon of orthopedics of her left wrist. She had a fracture in September and x-rays indicate a possible acute fracture as well. Patient does have a right orbital floor fracture but she has no pain, extraocular movements intact, and no signs of entrapment. Will hold off on ENT consult for now. We will also get physical therapy to evaluate patient since she has had multiple falls in the last few months. We will go ahead and restart her home medications as soon as they are reconciled in [facility]. Dr. Virk will see and examine patient and further recommendations to follow. Current Visit: Yes (2) Diabetes Status: Acute Current Visit: Yes (3) A-fib Status: Acute Current Visit: Yes (4) History of DVT of lower extremity Status: Acute Current Visit: Yes (5) Chronic renal insufficiency Status: Acute Current Visit: Yes (6) Unable to ambulate Status: Acute Current Visit: No (7) Recurrent falls Status: Acute Current Visit: No (8) Arthritis Status: Acute Current Visit: No (9) HTN (hypertension) Status: Acute Current Visit: No (10) Fracture of right orbital floor Status: Acute Current Visit: Yes History of Present Illness Chief complaint: Fall History of present illness: Ms. 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 fib, gout, GERD, diabetes, and hypertension admitted by Dr. Virk through the emergency room after a fall she sustained this morning. Patient states she was cooking at the oven and she turned to go sit at the table and she tripped over something and fell flat on her face. Patient's was there and witnessed the fall. Patient states she tried to break her fall with her hands and she is complaining of left wrist pain. Patient states she broke that same wrist in September and was seen by Dr. Espinosa and spent a month in a full arm cast. Patient also is complaining of left rib pain, left shoulder pain, headache, and bilateral knee pain. She denies dizziness or loss of consciousness. She denies chest pain, shortness of breath, abdominal pain, pelvic pain, or lower extremity edema. She is afebrile and she is mildly hypertensive. Her H&H is stable at 11.5/34.5, creatinine mildly elevated at 1.4 which seems to be her baseline per previous records. Upon exam, she is alert and oriented, she has a small laceration to the right of the bridge of the nose and to her mid forehead with sutures intact. Her left wrist is swollen and painful and is immobilized for pain control. She is having difficulty raising her left arm due to shoulder pain. She has bilateral bruising on her knees and a small hematoma on the left patella. Chest x-ray shows a hairline fracture of the left humeral head. CT of the C-spine shows 2.45 mm anterolisthesis of C4 relationship to C5 with no definitive fracture. Left elbow with mild soft tissue swelling. CT the fascia is right orbital floor fracture. Left forearm x-ray shows a healing distal radius and ulna fractures with acute on chronic injury suspected. CT the head shows no acute intracranial pathology with old subcortical infarct left temporal lobe. Left humeral x-ray is negative for hairline fracture of the humeral head. Bilateral knee x-rays show osteoarthritis with left knee with prepatellar soft tissue swelling. Patient's PCP is Dr. Cardoza at [place]. Home Medications Medication Instructions Recorded Confirmed Type Allopurinol 300 mg PO DAILY 10/21/16 10/21/16 History Cyanocobalamin Inj [Vitamin B12 1,000 mcg IM Q30D 10/21/16 10/21/16 History Inj] Isosorbide Dinitrate 20 mg PO TID 10/21/16 10/21/16 History Nitroglycerin [Nitroglycerin SL 0.4 mg SL DIRECTED 10/21/16 10/21/16 History Tab] Omeprazole 20 mg PO DAILY 10/21/16 10/21/16 History Potassium Chloride 10 meq PO DAILY 10/21/16 10/21/16 History Spironolactone [Aldactone] 25 mg PO DAILY 10/21/16 10/21/16 History dilTIAZem HCl [Diltiazem ER (12 120 mg PO DAILY 10/21/16 10/21/16 History hr)] metFORMIN [Glucophage] 1,000 mg PO DAILY 10/21/16 10/21/16 History Warfarin [Coumadin] 2 mg PO DAILY@1800 #30 tablet 10/25/16 Rx Allergies Allergy/AdvReac Type Severity Reaction Status Date / Time latex Allergy RASH Verified 10/21/16 06:23 Medical,Surgical,& Family Hx - Medical History Cardio: History of: CHF, Hypertension Endocrine: History of: Diabetes Mellitus (NIDDM) Rheumatology: History of;: Gout, Rheumatoid Arthritis Gastrointestinal: History of: GERD Musculoskeletal: No history of: Amputation - Surgical History Cardiac Surgeries: Patient Denies: Femoral-Popliteal Bypass Graft, Cardiac Catheterization, Cardiac Surgery, Carotid Endarterectomy, Internal Defibrillator, Vascular Access Devices Thoracic Surgeries: Patient denies;: Organ Transplant, Lobectomy Neurologic Surgeries: Patient denies: Neurologic Surgery HEENT Surgeries: Patient denies: Carotid Endarterectomy, Thyroid Surgery Abdominal Surgeries: Patient denies: Abdominal Surgery, Splenectomy Reproductive Surgeries: Surgical HX of;: Hysterectomy Patient denies;: Genitourinary Surgery - Family History Family History: Reports;: Family Diabetes, Family Heart Disease, Family Hypertension - Social History Smoking Status: Never smoker Frequency of Alcohol Use: None Type of Drug Use: None Marital Status: Lives With:: Spouse Functional capacity: uses cane/walker Exam - Constitutional Vitals: Period Temp Pulse Resp BP Sys/Ghotra Pulse Ox Last 24 Hr 98.9 F-98.9 F 87-93 15-20 148-168/78-97 96-98 Exam: 86-year-old white female, no acute distress, alert and oriented Eyes with extraocular movements intact, hearing intact, nose with small laceration to the right of the bridge, tongue midline Head with small laceration mid forehead with sutures intact, otherwise atraumatic Neck without tenderness, trachea midline Chest clear to auscultation bilaterally, no sternal tenderness, left rib tenderness laterally CV regular rate and rhythm, 3/6 murmur Abdomen soft nontender Pelvis without tenderness Extremities left wrist with some bruising and edema and tenderness, bilateral knees with bruising and soft tissue swelling to left patella, good distal pulses throughout, also tenderness to left anterior shoulder Review of systems: A complete 10 system review of systems was obtained and pertinent positives and negatives per HPI Results - Labs CBC & BMP: 04/02/17 10:56 04/02/17 10:56 Lab Results: I have reviewed the past 24 hour labs - EKG EKG results: sinus rhythm - Impressions Sinus rhythm, marked left axis deviation, pattern consistent with pulmonary disease, moderate intraventricular conduction delay, moderate T-wave abnormality - Diagnostic Findings Procedure: Chest x-ray: report reviewed by me (Stable pulmonary hypoinflation with hilar prominence and tortuous thoracic aorta. Hairline fracture left humeral head), CT: report reviewed by me, pending (CT the head shows no acute intracranial pathology. Chronic generalized atrophy. 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 Air-fluid level right maxillary sinus. CT of the face shows right orbital floor fracture with maxillary sinus mucosal thickening and fluid. CT of the C-spine shows 2.5 mm anterolisthesis of C4 relationship to C5 with no definite fracture. Multilevel DDD. Osteopenia), X-ray: report reviewed by me (Elbow x-ray shows mild soft tissue swelling with no fracture or dislocation. Forearm x-ray shows healing distal radius and ulna fractures with acute on chronic injury suspected. Humerus left x-ray shows negative for hairline fracture. Bilateral knee x-ray shows medial compartment osteoarthritis and prepatellar soft tissue swelling of the left knee.)
[2017-04-02] MEDS ORDERED: METOPROLOL TARTRATE 5 MG/5 ML VIAL IV PRN (14:36)
--- NOTE | 2017-04-02 14:55 | XRay Report ---
Left wrist, 3 views. Indication: Acute on chronic left wrist fracture. Comparison: Left forearm from earlier today the osseous structures are diffusely demineralized. At the first and second carpal-metacarpal joints, there are osteoarthritic changes. 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 The globes are seen within the soft tissues. There are impacted displaced fractures of the distal radius and ulna without significant callus formation. There is associated soft tissue swelling. Impression: Severe displaced fractures of the distal radius and ulna resulting in deformity. There may be both acute and chronic components. Correlation with any previous studies at an outside hospital is recommended. There are is diffuse demineralization, with osteoarthritis and erosive osteoarthritis. PROCEDURE INTERPRETED AT [facility] DEPARTMENT OF RADIOLOGY Final Report Signed by: Dr. Marge Banegas
[2017-04-02 15:06] LABS: Partial Thromboplastin Time 40.6 SECS (0-40)
[2017-04-02 15:09] LABS: PT Patient Result 22.3 SECS
--- NOTE | 2017-04-02 17:58 | Orthopedic Consult Note ---
History of Present Illness Chief complaint: Left proximal humerus fracture History of present illness: Ms. Manning is a 86 year old female with multiple injuries following fall earlier this morning. She has a known history of left distal radius fracture injury occurring in September she reportedly was treated by Dr. Espinosa went on to some type of union she never required surgical intervention. She is complaining primarily of left shoulder pain also some bruising area of the anterior of both knees Examination thin white female she tolerates gentle range of motion about both lower extremities including hips knees tib-fib and ankles are 2 small hematomas overlying both knees consistent with a contusion no knee joint effusion. She also tolerates gentle pain about both hips without any obvious pain or crepitation there is no pain about the right upper extremity on the left side a sling and swath is in place it is removed so I can palpate the forearm and wrist on the left there is no significant swelling and no point tenderness with palpation over the distal radius or ulnar. She is able to actively squeeze the finger without any obvious discomfort there is no pain about the elbow there is marked pain with gentle palpation range of motion at the left shoulder X-rays confirming a minimally displaced fracture left proximal humerus. There is a subacute or most likely healed fractures involving the left radius and ulna. I do not think this represent an acute fracture especially given her clinical exam. Impression: left proximal humerus fracture Left distal radius and ulna fracture, subacute or healed Plan: I have ordered a sling think she will be more comfortable with the sling rather than the sling and swath device for her shoulder at this point will observe the left wrist and reexamine tomorrow we can always get give her a Velcro wrist splint but at this point I do not think there is an acute process. We will start mobilizing with PT up to chair in a.m. thank you for the consultation Home Medications Medication Instructions Recorded Confirmed Type Allopurinol 300 mg PO DAILY 10/21/16 10/21/16 History Cyanocobalamin Inj [Vitamin B12 1,000 mcg IM Q30D 10/21/16 10/21/16 History Inj] Isosorbide Dinitrate 20 mg PO TID 10/21/16 10/21/16 History Nitroglycerin [Nitroglycerin SL 0.4 mg SL DIRECTED 10/21/16 10/21/16 History Tab] Omeprazole 20 mg PO DAILY 10/21/16 10/21/16 History Potassium Chloride 10 meq PO DAILY 10/21/16 10/21/16 History Spironolactone [Aldactone] 25 mg PO DAILY 10/21/16 10/21/16 History dilTIAZem HCl [Diltiazem ER (12 120 mg PO DAILY 10/21/16 10/21/16 History hr)] metFORMIN [Glucophage] 1,000 mg PO DAILY 10/21/16 10/21/16 History Warfarin [Coumadin] 2 mg PO DAILY@1800 #30 tablet 10/25/16 Rx Allergies Allergy/AdvReac Type Severity Reaction Status Date / Time latex Allergy RASH Verified 10/21/16 06:23 Medical,Surgical,& Family Hx - Medical History Cardio: History of: CHF, Hypertension Endocrine: History of: Diabetes Mellitus (NIDDM) Rheumatology: History of;: Gout, Rheumatoid Arthritis Gastrointestinal: History of: GERD Musculoskeletal: History of: Musculoskeletal Problems (fx left arm) No history of: Amputation - Surgical History Cardiac Surgeries: Patient Denies: Femoral-Popliteal Bypass Graft, Cardiac Catheterization, Cardiac Surgery, Carotid Endarterectomy, Internal Defibrillator, Vascular Access Devices Thoracic Surgeries: Patient denies;: Organ Transplant, Lobectomy Neurologic Surgeries: Patient denies: Neurologic Surgery HEENT Surgeries: Patient denies: Carotid Endarterectomy, Thyroid Surgery Abdominal Surgeries: Patient denies: Abdominal Surgery, Splenectomy Reproductive Surgeries: Surgical HX of;: Hysterectomy Patient denies;: Genitourinary Surgery - Family History Family History: Reports;: Family Diabetes, Family Heart Disease, Family Hypertension - Social History Smoking Status: Never smoker Frequency of Alcohol Use: None Type of Drug Use: None Exam - Constitutional Vitals: Period Temp Pulse Resp BP Sys/Ghotra Pulse Ox Last 24 Hr 98.7 F-98.9 F 87-100 15-20 141-168/78-97 96-100 Results - Labs CBC & BMP: 04/02/17 10:59 04/02/17 10:56
[2017-04-03] MEDS: MORPHINE 2 MG/1 ML SYRINGE IV PRN (00:20)
[2017-04-03 07:49] LABS: Hematocrit 31.7 VOL% (35.7-47.0); Hemoglobin 10.6 GM/DL (12.0-16.0)
[2017-04-03] MEDS: PANTOPRAZOLE 40 MG TABLET PO SCH (08:21)
--- NOTE | 2017-04-03 13:34 | General Surgery Progress Note ---
Assessment and Plan - Time spent with patient Time spent with patient: Less than 30 minutes (1) Acute on chronic left wrist fracture Status: Acute Assessment and plan: 86-year-old white female with history of diabetes, hypertension, A. 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 Virk through the emergency room after a fall with right orbital floor fracture and acute on chronic left wrist fracture, forehead laceration, left shoulder and bilateral knee pain. Patient will be admitted for pain control. She will also have evaluation from Dr. Mckeon of orthopedics of her left wrist. She had a fracture in September and x-rays indicate a possible acute fracture as well. Patient does have a right orbital floor fracture but she has no pain, extraocular movements intact, and no signs of entrapment. Will hold off on ENT consult for now. We will also get physical therapy to evaluate patient since she has had multiple falls in the last few months. We will go ahead and restart her home medications as soon as they are reconciled in [facility]. Dr. Virk will see and examine patient and further recommendations to follow. 04/03/2017 patient continues to have pain in her ribs and left shoulder along with her wrist. Dr. Mckeon has evaluated the patient and recommends a sling for comfort due to left proximal humerus fracture. He is observing the left wrist at this time and will reexamine it today. She may need a Velcro wrist splint. Also waiting for PT to see the patient for mobilization and see if she may need a swing bed versus home with home health or assisted device. Have restarted her home meds including her Coumadin. Discussed with Dr. Virk Current Visit: Yes (2) Diabetes Status: Acute Current Visit: Yes (3) A-fib Status: Acute Current Visit: Yes (4) History of DVT of lower extremity Status: Acute Current Visit: Yes (5) Chronic renal insufficiency Status: Acute Current Visit: Yes (6) Unable to ambulate Status: Acute Current Visit: No (7) Recurrent falls Status: Acute Current Visit: No (8) Arthritis Status: Acute Current Visit: No (9) HTN (hypertension) Status: Acute Current Visit: No (10) Fracture of right orbital floor Status: Acute Current Visit: Yes Subjective Narrative: Still hurting. Awaiting PT evaluation for balance assessment and need for assistive device for home. Patient has had frequent falls recently. Exam - Constitutional Vitals: Period Temp Pulse Resp BP Sys/Ghotra Pulse Ox Last 24 Hr 96.8 F-98.7 F 75-100 14-18 118-149/69-89 94-100 Exam: 86-year-old white female, no acute distress, alert and oriented Chest clear CV regular rate and rhythm Abdomen soft nontender Extremities with no edema Results - Labs CBC & BMP: 04/03/17 07:39 04/02/17 10:56 Lab Results: I have reviewed the past 24 hour labs - Diagnostic Findings Procedure: X-ray: report reviewed by me (Subacute left distal radius and ulna fracture. And left proximal humerus fracture)
[2017-04-03] MEDS ORDERED: DEXTROSE 50% 25 GM/50 ML SYRINGE IV PRN (13:35)
[2017-04-03] MEDS ORDERED: GLUCAGON 1 MG VIAL IM PRN (13:35)
[2017-04-03] MEDS: ALLOPURINOL 300 MG TABLET PO SCH (14:10)
[2017-04-03] MEDS: DILTIAZEM CD 120 MG CAPSULE PO SCH (14:10)
[2017-04-03] MEDS: ISOSORBIDE DINITRATE 20 MG TABLET PO SCH ×2 (14:10→21:56)
[2017-04-03] MEDS: SPIRONOLACTONE 25 MG TABLET PO SCH (14:10)
[2017-04-03] MEDS: FUROSEMIDE 40 MG TABLET PO SCH (14:11)
[2017-04-03] MEDS ORDERED: WARFARIN 4 MG TABLET ONE (17:10)
[2017-04-03] MEDS: INSULIN LISPRO 100 UNIT/ML SUBCUT SCH (17:14)
[2017-04-03] MEDS ORDERED: WARFARIN 2 MG TABLET PO SCH (18:00)
--- NOTE | 2017-04-04 05:00 | EKG Report ---
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
[2017-04-04] MEDS: INSULIN LISPRO 100 UNIT/ML SUBCUT SCH ×2 (07:11→17:58)
--- NOTE | 2017-04-04 08:24 | Orthopedic Progress Note ---
Orthopedics - Subjective Interval history: Comfortable and cradle sling able to actively move wrist I do not believe x-ray findings are consistent with acute process but rather her old fracture. All of her pain is localized about the left shoulder. I discussed with her starting PT at about 3 weeks post injury get a follow-up appointment that time okay for discharge from my standpoint Exam - Constitutional Vitals: Period Temp Pulse Resp BP Sys/Ghotra Pulse Ox Last 24 Hr 96.9 F-98.9 F 69-104 16-18 110-144/67-89 90-95 Results - Labs CBC & BMP: 04/03/17 07:39 04/02/17 10:56
[2017-04-04] MEDS: SPIRONOLACTONE 25 MG TABLET PO SCH (08:29)
[2017-04-04] MEDS: ISOSORBIDE DINITRATE 20 MG TABLET PO SCH ×3 (08:29→21:17)
[2017-04-04] MEDS: FUROSEMIDE 40 MG TABLET PO SCH (08:29)
[2017-04-04] MEDS: DILTIAZEM CD 120 MG CAPSULE PO SCH (08:29)
[2017-04-04] MEDS: ALLOPURINOL 300 MG TABLET PO SCH (08:29)
[2017-04-04] MEDS: PANTOPRAZOLE 40 MG TABLET PO SCH (08:29)
[2017-04-04] MEDS ORDERED: EYE WASH SOLN 118 ML BOTTLE BOTH EYES PRN (11:55)
--- NOTE | 2017-04-04 11:55 | General Surgery Progress Note ---
Assessment and Plan - Time spent with patient Time spent with patient: Less than 30 minutes (1) Acute on chronic left wrist fracture Status: Acute Assessment and plan: 86-year-old white female with history of diabetes, hypertension, A. 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 Virk through the emergency room after a fall with right orbital floor fracture and acute on chronic left wrist fracture, forehead laceration, left shoulder and bilateral knee pain. Patient will be admitted for pain control. She will also have evaluation from Dr. Mckeon of orthopedics of her left wrist. She had a fracture in September and x-rays indicate a possible acute fracture as well. Patient does have a right orbital floor fracture but she has no pain, extraocular movements intact, and no signs of entrapment. Will hold off on ENT consult for now. We will also get physical therapy to evaluate patient since she has had multiple falls in the last few months. We will go ahead and restart her home medications as soon as they are reconciled in [facility]. Dr. Virk will see and examine patient and further recommendations to follow. 04/03/2017 patient continues to have pain in her ribs and left shoulder along with her wrist. Dr. Mckeon has evaluated the patient and recommends a sling for comfort due to left proximal humerus fracture. He is observing the left wrist at this time and will reexamine it today. She may need a Velcro wrist splint. Also waiting for PT to see the patient for mobilization and see if she may need a swing bed versus home with home health or assisted device. Have restarted her home meds including her Coumadin. Discussed with Dr. Virk 04/04/2017 patient's pain is better but she continues to have pain mostly in her left shoulder now. Dr. Mckeon feels the wrist is not an acute but old fracture. Patient is to continue with left shoulder sling, follow-up with Dr. Mckeon in 3 weeks for assessment and start physical therapy at that time. Patient is seeing PT here and she is unsteady on her feet using a quad cane. She is unable to use a walker due to her shoulder pain. Recommend swing bed or [facility] and patient is agreeable to this. She is okay to transfer when a bed is available. Discussed with Dr. Virk Current Visit: Yes (2) Diabetes Status: Acute Current Visit: Yes (3) A-fib Status: Acute Current Visit: Yes (4) History of DVT of lower extremity Status: Acute Current Visit: Yes (5) Chronic renal insufficiency Status: Acute Current Visit: Yes (6) Unable to ambulate Status: Acute Current Visit: No (7) Recurrent falls Status: Acute Current Visit: No (8) Arthritis Status: Acute Current Visit: No (9) HTN (hypertension) Status: Acute Current Visit: No (10) Fracture of right orbital floor Status: Acute Current Visit: Yes Subjective Narrative: Patient is still in a lot of pain mostly around that left shoulder. She is ambulating with a quad cane with physical therapy but she is still weak and debilitated. She is not stable on her feet. Patient is agreeable to go to walk -in swing bed for further rehab. She is using a sling for comfort on the left upper extremity. Exam - Constitutional Vitals: Period Temp Pulse Resp BP Sys/Ghotra Pulse Ox Last 24 Hr 96.9 F-98.9 F 69-104 16-18 109-132/63-73 90-95 Exam: 86-year-old white female, no acute distress, alert and oriented Bruising about the right face, extraocular movements intact, sutures and forehead intact Chest clear CV regular rate and rhythm Extremities left upper extremity in sling continues tenderness around the left shoulder, wrist improved Results - Labs CBC & BMP: 04/03/17 07:39 04/02/17 10:56 Lab Results: I have reviewed the past 24 hour labs Specialty Discharge - Follow Up or Referrals Follow up with: Abdias Virk MD [Physician] - 04/17/17 10:15 am Jose Mckeon Jr., MD [Physician] - 04/30/17 9:00 am (3 weeks)
[2017-04-04 16:56] LABS: Apearance,Urine Slightly Hazy (Clear); Bacteria,Urine Few /HPF (Few); Bilirubin,Urine Negative (Negative); Blood, Urine Negative (Negative); Glucose,Urine (UA) Negative (Negative); Ketones,Urine Negative (Negative); Mucus,Urine Occasional /LPF (Occasional); Nitrite,Urine Negative (Negative); Protein,Urine Negative; RBC,Urine <1 /HPF (0-4); Squamous Epithelial Cell,Urine Occasional /HPF (0-10); Urine Color Yellow (Yellow); Urine Specific Gravity 1.006 (1.001-1.035); Urine Urobilinogen < 2.0 EU/DL (0.2-1.0); WBC,Urine 3 /HPF (0-6)
[2017-04-04] MEDS: WARFARIN 1 MG TABLET PO SCH (17:59)
[2017-04-05] MEDS: INSULIN LISPRO 100 UNIT/ML SUBCUT SCH ×2 (07:44→16:52)
[2017-04-05] MEDS: ALLOPURINOL 300 MG TABLET PO SCH (09:10)
[2017-04-05] MEDS: FUROSEMIDE 40 MG TABLET PO SCH (09:10)
[2017-04-05] MEDS: DILTIAZEM CD 120 MG CAPSULE PO SCH (09:11)
[2017-04-05] MEDS: SPIRONOLACTONE 25 MG TABLET PO SCH (09:11)
[2017-04-05] MEDS: PANTOPRAZOLE 40 MG TABLET PO SCH (09:12)
[2017-04-05] MEDS: ISOSORBIDE DINITRATE 20 MG TABLET PO SCH ×3 (09:12→20:23)
--- NOTE | 2017-04-05 10:15 | General Surgery Progress Note ---
Assessment and Plan - Time spent with patient Time spent with patient: Less than 30 minutes (1) Acute on chronic left wrist fracture Status: Acute Assessment and plan: 86-year-old white female with history of diabetes, hypertension, A. 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 Virk through the emergency room after a fall with right orbital floor fracture and acute on chronic left wrist fracture, forehead laceration, left shoulder and bilateral knee pain. Patient will be admitted for pain control. She will also have evaluation from Dr. Mckeon of orthopedics of her left wrist. She had a fracture in September and x-rays indicate a possible acute fracture as well. Patient does have a right orbital floor fracture but she has no pain, extraocular movements intact, and no signs of entrapment. Will hold off on ENT consult for now. We will also get physical therapy to evaluate patient since she has had multiple falls in the last few months. We will go ahead and restart her home medications as soon as they are reconciled in [facility]. Dr. Virk will see and examine patient and further recommendations to follow. 04/03/2017 patient continues to have pain in her ribs and left shoulder along with her wrist. Dr. Mckeon has evaluated the patient and recommends a sling for comfort due to left proximal humerus fracture. He is observing the left wrist at this time and will reexamine it today. She may need a Velcro wrist splint. Also waiting for PT to see the patient for mobilization and see if she may need a swing bed versus home with home health or assisted device. Have restarted her home meds including her Coumadin. Discussed with Dr. Virk 04/04/2017 patient's pain is better but she continues to have pain mostly in her left shoulder now. Dr. Mckeon feels the wrist is not an acute but old fracture. Patient is to continue with left shoulder sling, follow-up with Dr. Mckeon in 3 weeks for assessment and start physical therapy at that time. Patient is seeing PT here and she is unsteady on her feet using a quad cane. She is unable to use a walker due to her shoulder pain. [facility] and patient is agreeable to this. She is okay to transfer when a bed is available. Discussed with Dr. Virk 04/05/2017 patient continues to have pain but it is controlled with her pain medication. She has not had a bowel movement since admission so we will give her some Chronulac to assist with this. Patient is still working with physical therapy and is quite debilitated and weak for independent ambulation. She will be going to swing bed and hopefully this will happen today. She will need to follow-up with Dr. Mckeon in his office in 3 weeks and start physical therapy on her shoulder at that time. Patient can follow-up with Dr. Virk in 1 week to remove the sutures in her forehead. Discussed with Dr. Virk Current Visit: Yes (2) Diabetes Status: Acute Current Visit: Yes (3) A-fib Status: Acute Current Visit: Yes (4) History of DVT of lower extremity Status: Acute Current Visit: Yes (5) Chronic renal insufficiency Status: Acute Current Visit: Yes (6) Unable to ambulate Status: Acute Current Visit: No (7) Recurrent falls Status: Acute Current Visit: No (8) Arthritis Status: Acute Current Visit: No (9) HTN (hypertension) Status: Acute Current Visit: No (10) Fracture of right orbital floor Status: Acute Current Visit: Yes Subjective Narrative: Patient feels okay today. She continues to have pain in her left shoulder and left wrist that is controlled with the pain medication. She has not had a bowel movement since admission. Still awaiting swing bed placement for rehab. Hopefully this will be today. Exam - Constitutional Vitals: Period Temp Pulse Resp BP Sys/Ghotar Pulse Ox Last 24 Hr 97.9 F-98.7 F 69-85 16-20 109-136/63-75 91-96 Exam: 86-year-old white female, no acute distress, alert and oriented Chest clear CV regular rate and rhythm Abdomen soft and nontender Extremities left shoulder with sling intact for comfort Results - Labs CBC & BMP: 04/03/17 07:39 04/02/17 10:56 Lab Results: I have reviewed the past 24 hour labs Specialty Discharge - Follow Up or Referrals Follow up with: Abdias Virk MD [Physician] - 04/17/17 10:15 am Jose Mckeon Jr., MD [Physician] - 04/30/17 9:00 am (3 weeks)
[2017-04-05] MEDS: LACTULOSE 20 GM/30 ML UDCUP PO SCH ×2 (10:51→20:23)
[2017-04-05] MEDS: WARFARIN 1 MG TABLET PO SCH (17:35)
--- NOTE | 2017-04-06 08:26 | General Surgery Progress Note ---
Assessment and Plan - Time spent with patient Time spent with patient: Less than 30 minutes (1) Debility, unspecified Status: Acute Assessment and plan: She has no complaints this morning. She is awaiting swing bed placement. Current Visit: No Subjective Patient reports: Present: no new complaints. Absent: still having pain, nausea , vomiting Exam - Constitutional Vitals: Period Temp Pulse Resp BP Sys/Ghotra Pulse Ox Last 24 Hr 98.4 F-99.5 F 77-99 16-20 120-141/69-73 93-97 General appearance: no acute distress - Head Head exam: Present: contusion - Eye Eye exam: Absent: scleral icterus - Respiratory Respiratory exam: Absent: accessory muscle use - GI/Abdominal GI/Abdominal exam: Present: soft. Absent: distended Results - Labs CBC & BMP: 04/03/17 07:39 04/02/17 10:56 Specialty Discharge - Follow Up or Referrals Follow up with: Abdias Virk MD [Physician] - 04/17/17 10:15 am (For suture removal.) Jose Mckeon Jr., MD [Physician] - 04/30/17 9:00 am (3 week folow up for x-ray and PT orders.)
[2017-04-06] MEDS: INSULIN LISPRO 100 UNIT/ML SUBCUT SCH ×2 (08:40→16:03)
[2017-04-06] MEDS: ALLOPURINOL 300 MG TABLET PO SCH (08:46)
[2017-04-06] MEDS: PANTOPRAZOLE 40 MG TABLET PO SCH (08:46)
[2017-04-06] MEDS: DILTIAZEM CD 120 MG CAPSULE PO SCH (08:46)
[2017-04-06] MEDS: SPIRONOLACTONE 25 MG TABLET PO SCH (08:46)
[2017-04-06] MEDS: ISOSORBIDE DINITRATE 20 MG TABLET PO SCH ×3 (08:46→20:45)
[2017-04-06] MEDS: LACTULOSE 20 GM/30 ML UDCUP PO SCH ×2 (08:47→20:45)
[2017-04-06] MEDS: FUROSEMIDE 40 MG TABLET PO SCH (08:47)
[2017-04-06] MEDS: WARFARIN 1 MG TABLET PO SCH (17:53)
[2017-04-07] MEDS: INSULIN LISPRO 100 UNIT/ML SUBCUT SCH ×2 (07:48→17:31)
[2017-04-07] MEDS: DILTIAZEM CD 120 MG CAPSULE PO SCH (09:18)
[2017-04-07] MEDS: SPIRONOLACTONE 25 MG TABLET PO SCH (09:18)
[2017-04-07] MEDS: ISOSORBIDE DINITRATE 20 MG TABLET PO SCH ×3 (09:18→20:10)
[2017-04-07] MEDS: FUROSEMIDE 40 MG TABLET PO SCH (09:18)
[2017-04-07] MEDS: LACTULOSE 20 GM/30 ML UDCUP PO SCH ×2 (09:18→20:10)
[2017-04-07] MEDS: ALLOPURINOL 300 MG TABLET PO SCH (09:19)
[2017-04-07] MEDS: PANTOPRAZOLE 40 MG TABLET PO SCH (09:19)
[2017-04-07] MEDS ORDERED: BISACODYL 10 MG SUPP RECTAL ONE (09:58)
--- NOTE | 2017-04-07 10:24 | General Surgery Progress Note ---
Assessment and Plan (1) Debility, unspecified Status: Acute Assessment and plan: She has no complaints this morning. She is awaiting swing bed placement. 04/07: She has no new complaints. We are waiting swing bed placement. Current Visit: No Subjective Patient reports: Present: no new complaints. Absent: shortness of breath, fever Exam - Constitutional Vitals: Period Temp Pulse Resp BP Sys/Ghotra Pulse Ox Last 24 Hr 98.0 F-100.3 F 80-87 18-20 115-140/68-81 93-96 General appearance: no acute distress - Respiratory Respiratory exam: Absent: accessory muscle use - GI/Abdominal GI/Abdominal exam: Present: soft. Absent: distended, tenderness Results - Labs CBC & BMP: 04/03/17 07:39 04/02/17 10:56 Specialty Discharge - Follow Up or Referrals Follow up with: Abdias Virk MD [Physician] - 04/17/17 10:15 am (For suture removal.) Jose Mckeon Jr., MD [Physician] - 04/30/17 9:00 am (3 week folow up for x-ray and PT orders.)
[2017-04-07] MEDS: WARFARIN 1 MG TABLET PO SCH (17:39)
[2017-04-08] MEDS ORDERED: SODIUM PHOSPHATE ENEMA 133 ML BOTTLE RECTAL ONE (06:41)
[2017-04-08] MEDS: INSULIN LISPRO 100 UNIT/ML SUBCUT SCH (08:54)
[2017-04-08] MEDS: DILTIAZEM CD 120 MG CAPSULE PO SCH (09:01)
[2017-04-08] MEDS: SPIRONOLACTONE 25 MG TABLET PO SCH (09:02)
[2017-04-08] MEDS: FUROSEMIDE 40 MG TABLET PO SCH (09:02)
[2017-04-08] MEDS: ALLOPURINOL 300 MG TABLET PO SCH (09:03)
[2017-04-08] MEDS: ISOSORBIDE DINITRATE 20 MG TABLET PO SCH ×2 (09:03→14:56)
[2017-04-08] MEDS: PANTOPRAZOLE 40 MG TABLET PO SCH (09:03)
[2017-04-08] MEDS: LACTULOSE 20 GM/30 ML UDCUP PO SCH (09:04)
--- NOTE | 2017-04-08 09:15 | General Surgery Progress Note ---
Assessment and Plan (1) Debility, unspecified Status: Acute Assessment and plan: She has no complaints this morning. She is awaiting swing bed placement. 04/07: She has no new complaints. We are waiting swing bed placement. 04/08: She has no new complaints. She feels better overall and her abdomen is benign she is not having any respiratory difficulty. We are awaiting swing bed placement. Current Visit: No Subjective Patient reports: Present: no new complaints. Absent: nausea, vomiting, shortness of breath, fever Exam - Constitutional Vitals: Period Temp Pulse Resp BP Sys/Ghotra Pulse Ox Last 24 Hr 97.8 F-99.2 F 55-77 17-20 113-146/59-80 92-98 General appearance: no acute distress - Eye Eye exam: Absent: scleral icterus - Respiratory Respiratory exam: Absent: accessory muscle use - GI/Abdominal GI/Abdominal exam: Present: soft. Absent: distended, tenderness Results - Labs CBC & BMP: 04/03/17 07:39 04/02/17 10:56 Specialty Discharge - Follow Up or Referrals Follow up with: Abdias Virk MD [Physician] - 04/17/17 10:15 am (For suture removal.) Jose Mckeon Jr., MD [Physician] - 04/30/17 9:00 am (3 week folow up for x-ray and PT orders.)
--- NOTE | 2017-04-08 12:38 | Discharge Summary ---
Hospital Course - Hospital Course Hospital Course: 86-year-old white female with history of diabetes, hypertension, A. 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 Virk through the emergency room on 04/05/2017 after a fall. Patient was found to have an orbital floor fracture and humerus fracture that are both nonoperative. She had a laceration on her forehead that was sutured in the ED. She was admitted for deconditioning and pain control. She is using a sling for comfort on her left upper extremity and her pain is controlled. She is being transferred today to swing bed for further rehabilitation. She will need to have her sutures removed in [address] Virk's office. Patient will need to see Dr. Mckeon in his office in 3 weeks to start physical therapy on her shoulder and for him to reevaluate. Complete discharge instructions were given to the patient. Care coordination, chart review, and completed discharge paperwork took approximately 35 minutes. - Time spent with patient Time with patient DS: Greater than 30 minutes Diagnosis - Discharge Diagnosis (1) Acute on chronic left wrist fracture Status: Acute (2) Diabetes Status: Chronic (3) A-fib Status: Chronic (4) History of DVT of lower extremity Status: Resolved (5) Chronic renal insufficiency Status: Chronic (6) Unable to ambulate Status: Acute (7) Recurrent falls Status: Acute (8) Arthritis Status: Chronic (9) HTN (hypertension) Status: Chronic (10) Fracture of right orbital floor Status: Acute Specialty Discharge - Follow Up or Referrals Follow up with: Abdias Virk MD [Physician] - 04/17/17 10:15 am (For suture removal.) Jose Mckeon Jr., MD [Physician] - 04/30/17 9:00 am (3 week folow up for x-ray and PT orders.) Discharge Plan - Discharge Data Disposition: Swing Bed, Hos Based, [facility] Condition at Discharge: Stable Discharge Diet: heart healthy Activity: as per physical therapy Hygiene: may shower Driving: not until seen by doctor Contact your physician if you experience:: fever over 101, Redness or swelling, Shortness of breath - Discharge Medications New Eye Wash Soln [Eye Stream] 1 irrigation BOTH EYES PRN PRN PRN Reason: Dry Eyes HYDROcodone/ACETAMIN 7.5-325 [Monson 7.5-325] 1 tablet PO Q4H PRN #30 tablet PRN Reason: Pain Moderate (4-7) Continue metFORMIN [Glucophage] 1,000 mg PO DAILY Spironolactone [Aldactone] 25 mg PO DAILY Isosorbide Dinitrate 20 mg PO TID dilTIAZem HCl [Diltiazem ER (12 hr)] 120 mg PO DAILY Furosemide Tab [Lasix Tab] 40 mg PO DAILY Allopurinol [Zyloprim] 300 mg PO DAILY Omeprazole 20 mg PO DAILY Warfarin [Coumadin] 2 mg PO DAILY@1800 #30 tablet - Follow Up or Referral Follow Up: Abdias Virk MD [Physician] - 04/17/17 10:15 am (For suture removal.) Jose Mckeon Jr., MD [Physician] - 04/30/17 9:00 am (3 week folow up for x-ray and PT orders.) - Forms/Instructions Instructions: Facial Fracture (DC), Wrist Fracture in Adults (DC) Exam - Constitutional Vitals: Period Temp Pulse Resp BP Sys/Ghotra Pulse Ox Last 24 Hr 97.8 F-99.2 F 72-80 17-20 113-146/59-81 92-98 Exam: 86-year-old white female, no acute distress, alert and oriented Chest clear CV regular rate and rhythm Abdomen soft and nontender Extremities no edema, left upper extremity sling intact Discharge Results Procedures and tests throughout hospitalization: Pending Orders 04/09/17 04:00 Basic Metabolic Panel IN AM CBC [Comp Blood Count Auto Diff] IN AM Labs on day of discharge: Labs from last 24 hours 04/08/17 04/08/17 04/07/17 10:55 06:46 20:16 POC Glucose 186 H 131 H 201 H 04/07/17 16:15 POC Glucose 198 H DS: Provider Date of admission: 04/02/17 13:16 Primary care physician: . No PCP Attending physician on admission: Abdias Virk MD Consults: 04/02/17 13:50 Consult to Physical Therapy [CONS] Routine Reason for Physical Therapy: Evaluate and Treat Consult Comment: frequent falls 04/02/17 13:53 Consult to Physician [CONS] Routine Comment: fall, acute/chronic Lwrist fx, L humeral neck fx Consulting Provider: Jose Mckeon Jr. Consulting Provider Notified: Yes When should Consulting Provider be notified: Now Person Notified: julio called Date Notified: 04/02/17 Time Notified: 15:21 04/04/17 08:21 Consult to Case Mgmt/Social Srvs [CONS] Routine Reason for Case Mgmt/Social Srvs: Rehab Swingbed/SNF/[facility] 04/05/17 10:31 Consult to Occupational Therapy [CONS] Routine Reason for Occupational Therapy: Evaluate and Treat Consult Comment: Evaluate & Treat for swing bed placement at [facility], needs OT notes Discharging clinician: JOSE Pierce Expected date of discharge: 04/08/17
[2017-04-08 16:22] VITALS: BP 111/65
== END 2017-04-08 16:26 | disposition swing bed (61) ==
LOC: EDUNIT# → N.ED 10:38 → N.EDINP 10:38 → N.3E 15:12
PROVIDERS: ADMIT Surgery; ATTEND Surgery

== ENCOUNTER 2017-05-26 00:21 | Inpatient (IN) ==
--- NOTE | 2017-05-26 02:14 | Emergency Department Note ---
Arrival - Arrival Chief Complaint: Chest Pain Stated Complaint: CP ED Nursing Triage Note: pt to er via ems stretcher with c/o chest pain. pt denies any other complaints. pt took a total of 18 0.4 nitro tabs between 2200 and 0000. pt had 500cc ns in route. 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 Has been gave her approximately 18 tablets of nitroglycerin which did not improve her symptoms and therefore called an ambulance brought her to the emergency department. The patient is symptom-free at this time however her monitor shows atrial fibrillation with a rate of between 120 and 130. Allergies/Adverse Reactions: Allergies Allergy/AdvReac Type Severity Reaction Status Date / Time latex Allergy RASH Verified 05/26/17 00:39 Home Medications: Home Medications Medication Instructions Recorded Confirmed Type Isosorbide Dinitrate 20 mg PO TID 10/21/16 05/26/17 History Omeprazole 20 mg PO DAILY 10/21/16 05/26/17 History Spironolactone [Aldactone] 25 mg PO DAILY 10/21/16 05/26/17 History dilTIAZem HCl [Diltiazem ER (12 120 mg PO DAILY 10/21/16 05/26/17 History hr)] metFORMIN [Glucophage] 1,000 mg PO DAILY 10/21/16 05/26/17 History Warfarin [Coumadin] 2 mg PO DAILY@1800 #30 tablet 10/25/16 05/26/17 Rx Furosemide Tab [Lasix Tab] 40 mg PO DAILY 04/02/17 05/26/17 History Review of System - Review of System Constitutional: Absent: fever, night sweats Eyes: Absent: redness, vision change Head/Ears/Nose/Throat: Absent: epistaxis, nasal drainage Respiratory: Absent: respiratory distress, wheezing Cardiovascular: Present: chest pain. Absent: dyspnea on exertion, orthopnea, edema Gastrointestinal: Absent: hematemesis, melena Genitourinary female: Absent: dysuria, frequency Musculoskeletal: Absent: joint swelling, lower back pain Skin: Absent: change in color, change in hair/nails Neurological: Absent: numbness, paresthesias, confusion Psychiatric: Absent: anxiety, depression Endocrine: Absent: polydipsia, polyuria Hematological/Lymphatic: Absent: easy bruising, lymphadenopathy Allergic/Immunologic: Absent: urticaria, itchy eyes Medical,Surgical,& Family Hx - Medical History Cardio: History of: Cardiac Dysrhythmia, CHF, Hypertension Endocrine: History of: Diabetes Mellitus (NIDDM) Rheumatology: History of;: Gout, Rheumatoid Arthritis Gastrointestinal: History of: GERD Musculoskeletal: History of: Musculoskeletal Problems (fx left arm) No history of: Amputation - Surgical History Cardiac Surgeries: Patient Denies: Femoral-Popliteal Bypass Graft, Cardiac Catheterization, Cardiac Surgery, Carotid Endarterectomy, Internal Defibrillator, Vascular Access Devices Thoracic Surgeries: Patient denies;: Organ Transplant, Lobectomy Neurologic Surgeries: Patient denies: Neurologic Surgery HEENT Surgeries: Patient denies: Carotid Endarterectomy, Thyroid Surgery Abdominal Surgeries: Patient denies: Abdominal Surgery, Splenectomy Reproductive Surgeries: Surgical HX of;: Hysterectomy Patient denies;: Genitourinary Surgery - Family History Family History: Reports;: Family Diabetes, Family Heart Disease, Family Hypertension - Social History Smoking Status: Never smoker Frequency of Alcohol Use: None Type of Drug Use: None Exam Vital Signs: Vital Signs Temperature 98.2 F 05/26/17 01:00 Pulse Rate 124 H 05/26/17 01:00 Respiratory Rate 17 05/26/17 01:00 Blood Pressure 127/86 05/26/17 01:00 O2 Sat by Pulse Oximetry 99 05/26/17 00:34 - General General appearance: alert - Eye Eye exam: Present: PERRL, EOMI - ENT ENT exam: Present: normal exam, normal oropharynx - Neck Neck exam: Present: normal inspection, full ROM - Respiratory Respiratory exam: Present: normal lung sounds bilaterally - Cardiovascular Cardiovascular exam: Present: tachycardia, irregular rhythm - Abdominal Exam Abdominal exam: Present: soft, normal bowel sounds - Extremities Exam Extremities exam: Present: normal inspection, full ROM - Back Exam Back exam: Present: normal inspection, full ROM - Neurological Exam Neurological exam: Present: alert, oriented X3, CN II-XII intact - Psychiatric Psychiatric exam: Present: normal affect, normal mood - Skin Skin exam: Present: warm, dry Course Course Narrative: The patient's symptoms appear to be due to atrial fibrillation which is chronic but with a fast ventricular rate troponin is slightly elevated. Patient has a history of coronary artery disease as evidenced by the fact that she has nitroglycerin to take when she develops chest pain therefore it seems reasonable patient to be admitted to the hospital for further evaluation and treatment. Case was discussed with the hospitalist who agreed to admit the patient to the hospital. Results - Labs CBC & BMP: 05/26/17 02:28 05/26/17 02:28 Disposition Clinical Impression: Atrial fibrillation with RVR, Chest pain Disposition: Still a Patient Additional Instructions: Because the patient has chest pain with a slightly elevated troponin and because she has atrial fibrillation with a fast ventricular response seems reasonable that she should be admitted to the hospital for further evaluation and treatment
[2017-05-26 02:49] LABS: Basophils % 0.3 % (0.0-0.8); Eosinophils % 0.5 % (0.00-10.9); Hematocrit 32.2 VOL% (35.7-47.0); Hemoglobin 10.8 GM/DL (12.0-16.0); Immature Granulocytes % 0.7 %; Lymphocytes % 21.1 % (21.3-54.2); Mean Corpuscular HGB Conc 33.5 GM/DL (32-36); Mean Corpuscular Hemoglobin 33 PG (27-34); Mean Corpuscular Volume 98.2 FL (87-102); Mean Platelet Volume 10.6 FL (9.6-12.0); Neutrophils % 72.4 % (38.7-73.9); Platelet Count 191 T/CUMM (130-400); Red Blood Count 3.28 MC/CUMM (3.8-5.5); Red Cell Distribution Width 15.7 % (9.3-17.3); White Blood Count 7.4 T/CUMM (4-12)
[2017-05-26 02:50] LABS: Immature Granulocytes Absolute 0.05 #; Lymphocytes # 1.6 10*3/uL (1.4-4.0); Monocytes # 0.4 10*3/uL (0.11-0.8); Neutrophils # 5.3 10*3/uL (1.4-7.4)
[2017-05-26 03:03] LABS: INR 2.5
[2017-05-26 03:04] LABS: PT Patient Result 25.4 SECS
[2017-05-26 03:20] LABS: Albumin 3.2 G/DL (3.4-5.0); Bilirubin,Total 0.4 MG/DL (0.2-1.0); Calcium 9.9 MG/DL (8.5-10.1); Osmolality,Calculated 278.4 MOS/KG (273-304); Potassium 5.1 MMOL/L (3.5-5.1); Total Protein 7.5 G/DL (6.4-8.3)
[2017-05-26 03:24] LABS: Troponin I Only 0.145 NG/ML (0.00-0.045)
[2017-05-26] MEDS ORDERED: DILTIAZEM INJ 100 MG in SODIUM CHLORIDE 0.9% 100 ML IV SCH (04:30)
[2017-05-26] MEDS ORDERED: DILTIAZEM 50 MG/10 ML VIAL IV STA (04:31)
[2017-05-26] MEDS ORDERED: DILTIAZEM 100 MG VIAL.ADD IV ONE ×2 (04:41→04:44)
[2017-05-26] MEDS ORDERED: SODIUM CHLORIDE 0.9% 100 ML IV ONE (04:42)
[2017-05-26] MEDS ORDERED: DILTIAZEM 50 MG/10 ML VIAL IV ONE (04:42)
[2017-05-26] MEDS ORDERED: DEXTROSE 50% 25 GM/50 ML VIAL IV PRN (06:04)
[2017-05-26] MEDS ORDERED: GLUCAGON 1 MG VIAL IM PRN (06:04)
--- NOTE | 2017-05-26 06:14 | Hospitalist History & Physical ---
Assessment and Plan (1) Anticoagulated on Coumadin Status: Acute Assessment and plan: Patient has a therapeutic INR. We will continue Coumadin at the same doses as at home to be taken at 6 PM every day. Continue INR every other day Current Visit: Yes (2) Atrial fibrillation with RVR Status: Acute Assessment and plan: Patient is on IV diltiazem at this point does not believe as the day goes on and more with is stabilized she can be switched back to her oral diltiazem. She is in normal sinus rhythm. Never had an echocardiogram before therefore ordered 1. It appears this atrial fibrillation was in the background of chest pain that will rule her out for myocardial infarction or ACS. Is currently chest pain-free initial troponin was above range. Current Visit: Yes (3) Chest pain Status: Acute Assessment and plan: Rule out myocardial infarction patient will be on telemetry. Follow cardiac markers. An echocardiogram will also be done. Cardiology consult is on board. Current Visit: Yes (4) Debility, unspecified Status: Acute Assessment and plan: Pending stabilization with acute event patient may need to have PT OT involved Current Visit: No (5) Diabetes Status: Chronic Assessment and plan: Patient has been on metformin that is being withheld because the creatinine was 1.8. Will put her on ADA diet cardiac diet and sliding scale intermediate insulin. His sugar remains high she will probably need basal insulin dosing. Current Visit: No (6) History of DVT of lower extremity Status: Resolved Assessment and plan: Continue Coumadin as mentioned above. Home medications have been reviewed and are been resumed with appropriate modifications of withholding oral diltiazem while she is on IV diltiazem and was holding the metformin because of the renal insufficiency. Hemoglobin A1c has been ordered. Patient is a full code Current Visit: No History of Present Illness Chief complaint: Chest pain and A. fib with RVR History of present illness: Ms. Manning is a 87 year old female with a history of diabetes mellitus a history of coronary artery disease history of high blood pressure history of DVTs on Coumadin with therapeutic international normalizing ratio; reportedly started having chest pain around 9 PM got some sublingual nitroglycerin without improvement patient was brought to the emergency room by ambulance. She lives in an area [place] of [facility]. 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 She has been here before in October of this year and as late as April of this year. At no point was there issues relating to atrial fibrillation or chest pain. That explains her lack of cardiac workup. Patient was getting IV diltiazem by the time to go to see her in the emergency room. At the time of my assessment her heart rate was 66 beats a minute normal sinus rhythm on monitor in the no immature beats and the normal-looking MT interval. First troponin is 0.145 (significant) should be said that she is 87 years of age with a creatinine of 1.8 mg percent. Home Medications Medication Instructions Recorded Confirmed Type Isosorbide Dinitrate 20 mg PO TID 10/21/16 05/26/17 History Omeprazole 20 mg PO DAILY 10/21/16 05/26/17 History Spironolactone [Aldactone] 25 mg PO DAILY 10/21/16 05/26/17 History dilTIAZem HCl [Diltiazem ER (12 120 mg PO DAILY 10/21/16 05/26/17 History hr)] metFORMIN [Glucophage] 1,000 mg PO DAILY 10/21/16 05/26/17 History Warfarin [Coumadin] 2 mg PO DAILY@1800 #30 tablet 10/25/16 05/26/17 Rx Furosemide Tab [Lasix Tab] 40 mg PO DAILY 04/02/17 05/26/17 History Allergies Allergy/AdvReac Type Severity Reaction Status Date / Time latex Allergy RASH Verified 05/26/17 00:39 Medical,Surgical,& Family Hx - Medical History Cardio: History of: Cardiac Dysrhythmia, CHF, Hypertension Endocrine: History of: Diabetes Mellitus (NIDDM) Rheumatology: History of;: Gout, Rheumatoid Arthritis Gastrointestinal: History of: GERD Musculoskeletal: History of: Musculoskeletal Problems (fx left arm) No history of: Amputation - Surgical History Cardiac Surgeries: Patient Denies: Femoral-Popliteal Bypass Graft, Cardiac Catheterization, Cardiac Surgery, Carotid Endarterectomy, Internal Defibrillator, Vascular Access Devices Thoracic Surgeries: Patient denies;: Organ Transplant, Lobectomy Neurologic Surgeries: Patient denies: Neurologic Surgery HEENT Surgeries: Patient denies: Carotid Endarterectomy, Thyroid Surgery Abdominal Surgeries: Patient denies: Abdominal Surgery, Splenectomy Reproductive Surgeries: Surgical HX of;: Hysterectomy Patient denies;: Genitourinary Surgery - Family History Family History: Reports;: Family Diabetes, Family Heart Disease, Family Hypertension - Social History Smoking Status: Never smoker Frequency of Alcohol Use: None Type of Drug Use: None Review of systems: 12 point system assessment was done. Significant for the chief complaint and history of presenting illness and past medical history. She is very good memory can give a history of very well. She is in no acute distress and chest pain-free. Exam - Constitutional Vitals: Period Temp Pulse Resp BP Sys/Ghotra Pulse Ox Last 24 Hr 98.2 F-98.2 F 124-124 17-17 127-127/86-86 99 General appearance: normal weight, no acute distress, other (Elderly lady with a good wits) - Head Head exam: Present: normocephalic, atraumatic - Eye Eye exam: Present: EOMI, other (Anicteric sclera no conjunctival petechia) Pupils: Present: ZENIA - ENT ENT exam: Present: normal oropharynx - Neck Neck exam: Present: other (Supple neck no jugular venous distention or hepatojugular reflux no bruits patient does have refired sound from an aortic murmur there may also be a pulmonic murmur) - Respiratory Respiratory exam: Present: clear to auscultation bilaterally, other (No rales no wheezing) - Cardiovascular Cardiovascular exam: Present: regular rate and rhythm (Sinus control at this point but patient did have EKG showing atrial fibrillation with RVR; repeat EKG with normal sinus rhythm was present) - Extremities Exam Extremities exam: Present: full ROM, other (Because of generalized weakness however moderate pedal edema mostly around the ankles) - Neurological Exam Neurological exam: Present: alert, oriented X3, CN II-XII intact - Psychiatric Psychiatric exam: Present: normal affect, normal mood - Skin Skin exam: Present: normal color, warm, dry Results - Labs CBC & BMP: 05/26/17 02:28 05/26/17 02:28 Lab Results: I have reviewed the past 24 hour labs (Noted creatinine of 1.8 ( metformin will be withheld)The lipid panel this morning prior to breakfast. Chest x-ray is pending report. The does seem to be widening of the mediastinum. Cannot rule out a higher old infiltrates there is no chest x-ray to compare to. Again, official report is pending.)
[2017-05-26] MEDS: ISOSORBIDE DINITRATE 20 MG TABLET PO SCH ×3 (08:10→21:19)
[2017-05-26] MEDS: PANTOPRAZOLE 40 MG TABLET PO SCH (08:10)
[2017-05-26] MEDS: FUROSEMIDE 40 MG TABLET PO SCH (08:10)
[2017-05-26] MEDS: SPIRONOLACTONE 25 MG TABLET PO SCH (08:10)
--- NOTE | 2017-05-26 08:18 | XRay Report ---
Portable chest Indication: Chest pain Comparison: April 02, 2017 Findings: Cardiomediastinal contours are stable. Persistent hilar prominence, unchanged. Lungs remain clear. No acute osseous abnormalities. Visualized upper abdomen demonstrates no acute pathology. Impression: Stable chest. No acute cardiopulmonary findings PROCEDURE INTERPRETED AT [facility] DEPARTMENT OF RADIOLOGY Final Report Signed by: Beth Varela MD
[2017-05-26 09:21] LABS: Cholesterol 245 MG/DL (50-200); HDL Cholesterol 35 MG/DL (40-60); Triglycerides 394 MG/DL (2-150); VLDL CHOLESTEROL 78.8 MG/DL
[2017-05-26 09:22] LABS: Troponin I Only 0.269 NG/ML (0.00-0.045); Troponin I Only 0.299 NG/ML (0.00-0.045)
--- NOTE | 2017-05-26 10:14 | Hospitalist Progress Note ---
Assessment and Plan (1) HTN (hypertension) Status: Chronic Assessment and plan: Her blood pressure today is 114/66. Current Visit: No (2) Diabetes Status: Chronic Assessment and plan: Her blood glucose today is 111 and her hemoglobin A1c is 6.4%. She continues on sliding scale regular insulin coverage. Current Visit: No Qualifiers: Diabetes mellitus type: type 2 Diabetes mellitus complication status: without complication (3) History of DVT of lower extremity Status: Resolved Assessment and plan: There is no evidence of recurrent deep vein thrombophlebitis. Current Visit: No (4) Chronic renal insufficiency Status: Chronic Assessment and plan: Her BUN and creatinine are 46 and 1.8 respectively with a GFR of 23. She has a previously known history of chronic kidney disease. It is not yet clear if she is also experiencing acute kidney injury. Current Visit: No Qualifiers: Chronic kidney disease stage: stage 3 (moderate) Qualified Code(s): N18.3 - Chronic kidney disease, stage 3 (moderate) (5) Atrial fibrillation with RVR Status: Acute Current Visit: Yes (6) Chest pain Status: Acute Assessment and plan: She is no longer experiencing chest pain. Troponins have been elevated to 0.145 and 0.299. Cardiology has been consulted. Current Visit: Yes Qualifiers: Chest pain type: unspecified Qualified Code(s): R07.9 - Chest pain, unspecified (7) Anticoagulated on Coumadin Status: Acute Assessment and plan: Her INR is 2.5. Current Visit: Yes Hospitalist: Subjective Interval history: Patient feels much better today. She is not experiencing chest pain, shortness of breath, or palpitations. Laboratory testing is demonstrated elevated troponins, hemoglobin A1c of 6.4%, INR 2.5, and calculated GFR of 23. Exam - Constitutional Vitals: Period Temp Pulse Resp BP Sys/Ghotra Pulse Ox Last 24 Hr 97.3 F-98.7 F 73-124 17-18 114-127/66-90 95-100 General appearance: no acute distress - Head Head exam: Present: normal inspection - Neck Neck exam: Present: normal inspection - Respiratory Respiratory exam: Present: clear to auscultation bilaterally - Cardiovascular Cardiovascular exam: Present: regular rate and rhythm - GI/Abdominal GI/Abdominal exam: Present: normal bowel sounds, soft, other (Nontender with no palpable masses or hepatosplenomegaly.) - Extremities Exam Extremities exam: Present: normal inspection - Neurological Exam Neurological exam: Present: alert, oriented X3 - Skin Skin exam: Present: normal color, warm, intact Results - Labs CBC & BMP: 05/26/17 02:28 05/26/17 02:28
--- NOTE | 2017-05-26 12:48 | Cardiology Consult Note ---
Assessment and Plan (1) Atrial flutter Status: Acute Current Visit: Yes (2) Syncope Status: Acute Assessment and plan: 87-year-old female, presenting with chest pain, mildly elevated cardiac enzymes , in context of atrial flutter/RVR. Chest pain resolved with rhythm control. History of DVT, on Coumadin, hypertension, diabetes mellitus, debility, frailty , recurrent syncopal with multiple injuries this year. -She likely has underlying CAD, demand ischemia from uncontrolled heart rate. We will pursue intensive medical management, rhythm control, if she remains symptomatic, will need ischemic evaluation -Start aspirin 81 mg daily -Stop Cardizem drip. Start amiodarone drip, will transition to p.o.. Comorbidities limited antiarrhythmic options -Keep LDL less than 100. Start Crestor 10 mg nightly. No evidence of muscle injury -If heart rate allows, we will add beta-ari -Continue integration with Coumadin, keep INR 2-3. Free of skin, multiple suffusion, but no major bleeding issues of -Continue PPI -Recurrent syncope with injuries. She will need a 30 day event recorder on discharge, if no significant arrhythmias documented during his hospital stay. She may have symptomatic SSS or conversion pauses -Flutter morphology appears to be typical on the EKG O2 RVR limits interpretation. She may be a candidate for flutter ablation, if medically difficult to control. She has multiple arrhythmia morphologies, she would be better served with medical management +- PM. -Keep on telling him -Check TFTs -Follow-up echo. Systolic murmur, suggestive of MR. if she has significant cardiomyopathy, we may need to consider ischemic evaluation Current Visit: Yes (3) HTN (hypertension) Status: Chronic Current Visit: No History of Present Illness - Data of Consult Patient: new to practice Consult date: 05/26/17 - Consult Narrative Reason for consult: CP, demand isch, AFL History of present illness: Ms. Manning is a 87 year old female, who was not seen by cardiology previously. She has a remote history of DVT, anticoagulated with Coumadin. She had multiple falls, with fractures, was hospitalized twice this year at [facility], with wrist and facial injuries. Atrial flutter/RVR was documented on earlier admission, no cardiac evaluation was pursued at that time. She was admitted with chest pain, retrosternal, without radiation, moderate intensity, which started last night. She took apparently 18 nitroglycerin pills , but the pain did not go away she came to the hospital. On admission, she was in atrial flutter/RVR, IV Cardizem was started. Now, she converted back to sinus rhythm, the pain resolved. Enzymes are slightly elevated and no EKG was done since she converted back to sinus rhythm. No significant conversion pause on telemetry. She otherwise does not have chest pain with activity, felt several episodes of short-term other palpitations recently. No leg swelling. She is compliant with her medications, INR is therapeutic and she is followed by the primary care physician, Dr. Cardoza. History of type 2 diabetes mellitus, hypertension, DVT. No history of thyroid issues, there are no TFTs in the EMR. She also has gastroesophageal reflux, treated with PPI, and arthritis. X-ray showed no significant pulmonary congestion. The ollie are a bit prominent CC: Tee Paredes - Home Medications and Allergies Home Medications: Home Medications Medication Instructions Recorded Confirmed Type Isosorbide Dinitrate 20 mg PO TID 10/21/16 05/26/17 History Omeprazole 20 mg PO DAILY 10/21/16 05/26/17 History Spironolactone [Aldactone] 25 mg PO DAILY 10/21/16 05/26/17 History dilTIAZem HCl [Diltiazem ER (12 120 mg PO DAILY 10/21/16 05/26/17 History hr)] metFORMIN [Glucophage] 1,000 mg PO DAILY 10/21/16 05/26/17 History Furosemide Tab [Lasix Tab] 40 mg PO DAILY 04/02/17 05/26/17 History Potassium Chloride 8 meq PO QOTHER DAY 05/26/17 05/26/17 History Warfarin [Coumadin] 2.5 mg PO DAILY@1800 05/26/17 05/26/17 History Allergies/Adverse Reactions: Allergies Allergy/AdvReac Type Severity Reaction Status Date / Time latex Allergy RASH Verified 05/26/17 00:39 12 point system: reviewed and no additional remarkable complaints except as stated Medical,Surgical,& Family Hx - Medical History Cardio: History of: Cardiac Dysrhythmia, CHF, Hypertension Endocrine: History of: Diabetes Mellitus (NIDDM) Rheumatology: History of;: Gout, Rheumatoid Arthritis Gastrointestinal: History of: GERD Musculoskeletal: History of: Musculoskeletal Problems (fx left arm) No history of: Amputation - Surgical History Cardiac Surgeries: Patient Denies: Femoral-Popliteal Bypass Graft, Cardiac Catheterization, Cardiac Surgery, Carotid Endarterectomy, Internal Defibrillator, Vascular Access Devices Thoracic Surgeries: Patient denies;: Organ Transplant, Lobectomy Neurologic Surgeries: Patient denies: Neurologic Surgery HEENT Surgeries: Patient denies: Carotid Endarterectomy, Thyroid Surgery Abdominal Surgeries: Patient denies: Abdominal Surgery, Splenectomy Reproductive Surgeries: Surgical HX of;: Hysterectomy Patient denies;: Genitourinary Surgery - Family History Family History: Reports;: Family Diabetes, Family Heart Disease, Family Hypertension - Social History Smoking Status: Never smoker Frequency of Alcohol Use: None Type of Drug Use: None Physical Examination Vital Signs Temp Pulse Resp BP Pulse Ox 98.2 F 124 H 17 127/86 99 05/26/17 00:34 05/26/17 00:34 05/26/17 00:34 05/26/17 00:34 05/26/17 00:34 General: Present: Appears Well, No Apparent Distress HEENT: Present: Normocephaly, Mucus Membranes Moist Neck: Present: No JVD/HJR, No Bruit, Other Cardiac: Present: Reg Rate and Rhythm, Regular Rate, Regular Rhythm, Systolic Murmur Lungs: Present: Normal Breath Sounds, No Wheezes, No Rales Neuro: Present: Grossly Intact Abdomen: Present: Soft, Active Bowel Sounds Skin: Present: Clear, Other (Multiple suffusion, frail skin) Extremities: Present: No Clubbing, No Cyanosis, +1 Edema Result/EKG - Labs CBC & BMP: 05/26/17 02:28 05/26/17 02:28 Lab Results: I have reviewed the past 24 hour labs Labs: Laboratory Results - last 24 hr 05/26/17 05/26/17 05/26/17 02:28 02:28 02:28 WBC 7.4 RBC 3.28 L Hgb 10.8 L Hct 32.2 L MCV 98.2 MCH 33 MCHC 33.5 RDW 15.7 Plt Count 191 MPV 10.6 Neut % (Auto) 72.4 Lymph % (Auto) 21.1 L [place] % (Auto) 5.0 Eos % (Auto) 0.5 Baso % (Auto) 0.3 Neut # (Auto) 5.3 Lymph # (Auto) 1.6 [place] # (Auto) 0.4 Eos # (Auto) 0.0 Baso # (Auto) 0.0 Immature Gran % 0.7 Nucleated RBC % 0.0 Immature Gran # 0.05 Nucleated RBCs # 0.00 Immature Plt Fraction 0.0 INR 2.5 PT Patient/Control Mix 25.4 D-Dimer, Quantitative Sodium 133 L Potassium 5.1 Chloride 98 Carbon Dioxide 26 Anion Gap 14.1 BUN 46 H Creatinine 1.80 H GFR Calculation 23 BUN/Creatinine Ratio 25.00 H Glucose 122 H POC Glucose Hemoglobin A1c Calculated Osmolality 278.4 Calcium 9.9 Total Bilirubin 0.40 AST 37 ALT 19 Alkaline Phosphatase 124 H Total Creatine Kinase CK-MB (CK-2) Troponin I 0.145 H Total Protein 7.5 Albumin 3.2 L Globulin 4.3 H Albumin/Globulin Ratio 0.7 L Triglycerides Cholesterol LDL Cholesterol VLDL Cholesterol HDL Cholesterol Heart Disease Risk Ratio 05/26/17 05/26/17 05/26/17 02:28 07:44 07:44 WBC RBC Hgb Hct MCV MCH MCHC RDW Plt Count MPV Neut % (Auto) Lymph % (Auto) [place] % (Auto) Eos % (Auto) Baso % (Auto) Neut # (Auto) Lymph # (Auto) [place] # (Auto) Eos # (Auto) Baso # (Auto) Immature Gran % Nucleated RBC % Immature Gran # Nucleated RBCs # Immature Plt Fraction INR PT Patient/Control Mix D-Dimer, Quantitative <= 0.5 Sodium Potassium Chloride Carbon Dioxide Anion Gap BUN Creatinine GFR Calculation BUN/Creatinine Ratio Glucose POC Glucose Hemoglobin A1c Calculated Osmolality Calcium Total Bilirubin AST ALT Alkaline Phosphatase Total Creatine Kinase 64 62 CK-MB (CK-2) 4.4 H 4.9 H Troponin I 0.269 H D 0.299 H Total Protein Albumin Globulin Albumin/Globulin Ratio Triglycerides 394 H Cholesterol 245 H LDL Cholesterol 128.0 VLDL Cholesterol 78.8 HDL Cholesterol 35 L Heart Disease Risk Ratio 7.00 05/26/17 05/26/17 07:44 07:52 WBC RBC Hgb Hct MCV MCH MCHC RDW Plt Count MPV Neut % (Auto) Lymph % (Auto) [place] % (Auto) Eos % (Auto) Baso % (Auto) Neut # (Auto) Lymph # (Auto) [place] # (Auto) Eos # (Auto) Baso # (Auto) Immature Gran % Nucleated RBC % Immature Gran # Nucleated RBCs # Immature Plt Fraction INR PT Patient/Control Mix D-Dimer, Quantitative Sodium Potassium Chloride Carbon Dioxide Anion Gap BUN Creatinine GFR Calculation BUN/Creatinine Ratio Glucose POC Glucose 111 H Hemoglobin A1c 6.4 H Calculated Osmolality Calcium Total Bilirubin AST ALT Alkaline Phosphatase Total Creatine Kinase CK-MB (CK-2) Troponin I Total Protein Albumin Globulin Albumin/Globulin Ratio Triglycerides Cholesterol LDL Cholesterol VLDL Cholesterol HDL Cholesterol Heart Disease Risk Ratio - EKG EKG results: interpreted by me
--- NOTE | 2017-05-26 13:29 | DUMMY REPORT TO COMPLETE ORDER ---
See report scanned to EMR
--- NOTE | 2017-05-26 13:40 | DUMMY REPORT TO COMPLETE ORDER ---
See report scanned to EMR
--- NOTE | 2017-05-26 13:58 | DUMMY REPORT TO COMPLETE ORDER ---
See report scanned to EMR
[2017-05-26] MEDS: ASPIRIN EC 81 MG TABLET PO SCH (14:29)
[2017-05-26] MEDS: AMIODARONE INJ 450 MG in DEXTROSE 5% 241 ML IV SCH ×2 (14:30→21:18)
[2017-05-26] MEDS: WARFARIN 1 MG TABLET PO SCH (18:41)
[2017-05-26] MEDS: ROSUVASTATIN 10 MG TABLET PO SCH (21:19)
[2017-05-27] MEDS: AMIODARONE INJ 450 MG in DEXTROSE 5% 241 ML IV SCH ×6 (02:08→19:06)
[2017-05-27 06:23] LABS: Free T4 (Free Thyroxine) 0.82 NG/DL (0.76-1.46); Thyroid Stimulating Hormone 1.77 uIU/ml (0.358-3.74)
--- NOTE | 2017-05-27 08:52 | Cardiology Progress Note ---
<Lupe Guillaume E - Last Filed: 05/27/17 09:14> Assessment and Plan - Time spent with patient Time spent with patient: Less than 30 minutes (1) Atrial flutter Status: Acute Assessment and plan: See plan of care listed below. Current Visit: Yes (2) Syncope Status: Acute Assessment and plan: See plan of care listed below. Current Visit: Yes (3) HTN (hypertension) Status: Chronic Assessment and plan: See plan of care listed below. Current Visit: No (4) History of DVT of lower extremity Status: Resolved Assessment and plan: See plan of care listed below. Current Visit: No (5) Anticoagulated on Coumadin Status: Chronic Assessment and plan: See plan of care listed below. Current Visit: Yes (6) Hyperlipidemia Status: Acute Assessment and plan: See plan of care listed below. Current Visit: Yes Cardiology - PN: Subj Interval history: Science Intern: new to Dr. Vigil SUMMARY: 87-year-old female, presenting with chest pain, mildly elevated cardiac enzymes, in context of atrial flutter/RVR. Chest pain resolved with rhythm control. History of DVT, on Coumadin, hypertension, diabetes mellitus, debility, frailty, recurrent syncopal with multiple injuries this year. MAY 27, 2017: Ms. Manning is seen sitting up in the bedside chair this morning. We are continuing to follow her for atrial flutter, now converted to sinus rhythm with IV amiodarone. Her heart rates have been well controlled in the 60s. She denies complaints this morning. We will continue IV amiodarone today, anticipate transitioning to PO tomorrow. Echocardiogram revealed moderate LVH, EF 60%, mild aortic stenosis, trace aortic insufficiency, moderate MR, moderate TR, mild pulmonic regurgitation. We will continue with the present therapy. REVIEW OF SYSTEMS: CARDIAC: Denies chest pain. RESPIRATORY: Denies shortness of breath. IMPRESSION/PLAN: - ATRIAL FLUTTER: Now converted with amiodarone infusion. Heart rate well controlled in the 60s. Will transition to PO tomorrow. Flutter morphology appears to be typical on the EKG O2 RVR limits interpretation. She may be a candidate for flutter ablation, if medically difficult to control. She has multiple arrhythmia morphologies, she would be better served with medical management +- PM. - SYNCOPE: Recurrent syncope with injuries. She will need a 30 day event recorder on discharge, if no significant arrhythmias documented during his hospital stay. She may have symptomatic SSS or conversion pauses - HYPERTENSION: Currently well controlled on current therapy. Will continue to monitor and adjust accordingly. - HISTORY OF DVT: Continue anticoagulation with Coumadin. - CHRONIC ANTICOAGULATION: Continue anticoagulation. Monitor INR. - HYPERLIPIDEMIA: Continue lipid lowering agent for goal LDL less than 100. Exam (Progress Note) - Constitutional Vitals: Period Temp Pulse Resp BP Sys/Ghotra Pulse Ox Last 24 Hr 96.9 F-99.0 F 68-74 15-18 108-130/65-75 90-94 Exam: General appearance: Appears well. Pleasant and cooperative. Overweight, no acute distress. Head exam: Present: normal inspection, normocephalic, atraumatic. Absent: hematoma, laceration Eye exam: Present: EOMI. Absent: conjunctival injection, nystagmus, periorbital swelling, scleral icterus, laceration to eyelids, jaundice Pupils: Present: PERRL. Absent: constricted, dilated, fixed, irregular, unequal ENT exam: Present: normal exam, normal external ear exam, mucous membranes moist. Neck exam: Present: normal inspection, midline trachea. Absent: masses, lymphadenopathy, tenderness, thyromegaly, carotid bruit Respiratory exam: Present: clear to auscultation bilaterally. Absent: accessory muscle use, chest wall tenderness, rales, rhonchi, wheezing. Cardiovascular exam: Present: regular rate and rhythm. Systolic murmur. Absent : gallop, JVD, rubs GI/Abdominal exam: Present: normal bowel sounds, soft. Absent: distended, firm , hernia, mass, tenderness. Extremities exam: Present: Poor Gait, No Clubbing, No Cyanosis, Upper Extr. Pulses 2+, Lower Extr. Pulses 2+, trace LLE edema. Capillary refill less than 3 seconds. Musculoskeletal: Present: No Fluid Collection, No Pain, Normal Range of Motion Back exam: Present: normal inspection. Absent: muscle spasm, vertebral tenderness Neurological exam: Present: awake, alert, oriented X3, Moves all extremities well without hemiparesis or paralysis. Grossly intact without resting or essential tremor Psychiatric exam: Present: normal affect, normal mood Skin exam: Present: multiple suffusion, frail skin, warm, dry, intact. Absent: cyanosis, diaphoretic, rash, urticaria Result/EKG - Labs CBC & BMP: 05/26/17 02:28 05/26/17 02:28 Lab Results: I have reviewed the past 24 hour labs Labs: Laboratory Results - last 24 hr 05/26/17 05/26/17 05/27/17 07:44 07:44 04:29 Total Creatine Kinase 64 62 CK-MB (CK-2) 4.4 H 4.9 H Troponin I 0.269 H D 0.299 H Triglycerides 394 H Cholesterol 245 H LDL Cholesterol 128.0 VLDL Cholesterol 78.8 HDL Cholesterol 35 L Heart Disease Risk Ratio 7.00 Free T4 0.82 TSH 3rd Generation 1.770 - EKG EKG results: interpreted by me, sinus rhythm <Eddie Waller - Last Filed: 05/27/17 09:27> Cardiology - PN: Subj Interval history: Cardiology addendum. Patient examined chart reviewed and discussed with nurse Lupe Guillaume NP. 87-year-old woman with new onset atrial flutter. She has converted to sinus rhythm with IV amiodarone She feels much better telemetry shows sinus rhythm around 70 Blood pressure 124/70 Chest is clear Plan Continue IV amiodarone. Switch to p.o. tomorrow Continue Coumadin Probable home in a.m. if remains in sinus Exam (Progress Note) - Constitutional Vitals: Period Temp Pulse Resp BP Sys/Ghotra Pulse Ox Last 24 Hr 96.9 F-99.0 F 68-74 15-18 108-130/65-75 90-94 Result/EKG - Labs CBC & BMP: 05/26/17 02:28 05/26/17 02:28 Labs: Laboratory Results - last 24 hr 05/27/17 04:29 Free T4 0.82 TSH 3rd Generation 1.770
[2017-05-27] MEDS: PANTOPRAZOLE 40 MG TABLET PO SCH (08:59)
[2017-05-27] MEDS: SPIRONOLACTONE 25 MG TABLET PO SCH (08:59)
[2017-05-27] MEDS: FUROSEMIDE 40 MG TABLET PO SCH (08:59)
[2017-05-27] MEDS: ASPIRIN EC 81 MG TABLET PO SCH (08:59)
[2017-05-27] MEDS: ISOSORBIDE DINITRATE 20 MG TABLET PO SCH ×3 (08:59→21:18)
--- NOTE | 2017-05-27 10:59 | Hospitalist Progress Note ---
Assessment and Plan (1) HTN (hypertension) Status: Chronic Assessment and plan: Her blood pressure today is 123/69. Current Visit: No (2) Diabetes Status: Chronic Assessment and plan: Her blood glucose today is 111 and her hemoglobin A1c is 6.4%. She continues on sliding scale regular insulin coverage. Current Visit: No Qualifiers: Diabetes mellitus type: type 2 Diabetes mellitus complication status: without complication (3) Chronic renal insufficiency Status: Chronic Assessment and plan: Her BUN and creatinine are 46 and 1.8 respectively with a GFR of 23. She has a previously known history of chronic kidney disease. It is not yet clear if she is also experiencing acute kidney injury. Current Visit: No Qualifiers: Chronic kidney disease stage: stage 3 (moderate) Qualified Code(s): N18.3 - Chronic kidney disease, stage 3 (moderate) (4) Atrial fibrillation with RVR Status: Acute Assessment and plan: She is converted back to normal sinus rhythm. She is presently being treated with intravenous amiodarone. Cardiology plans to convert her to oral amiodarone. Current Visit: Yes (5) Chest pain Status: Acute Assessment and plan: She is no longer experiencing chest pain. Troponins have been elevated to 0.145 and 0.299. Cardiology is following. Current Visit: Yes Qualifiers: Chest pain type: unspecified Qualified Code(s): R07.9 - Chest pain, unspecified (6) Anticoagulated on Coumadin Status: Chronic Assessment and plan: Her INR is 2.5. Current Visit: Yes Hospitalist: Subjective Interval history: Patient is doing well today. She is converted back to normal sinus rhythm. She continues on intravenous amiodarone. Exam - Constitutional Vitals: Period Temp Pulse Resp BP Sys/Ghotra Pulse Ox Last 24 Hr 96.9 F-99.0 F 68-74 15-18 108-130/65-75 90-94 General appearance: no acute distress - Head Head exam: Present: normal inspection - Neck Neck exam: Present: normal inspection - Respiratory Respiratory exam: Present: clear to auscultation bilaterally - Cardiovascular Cardiovascular exam: Present: regular rate and rhythm - GI/Abdominal GI/Abdominal exam: Present: normal bowel sounds, soft, other (Nontender with no palpable masses or hepatosplenomegaly.) - Extremities Exam Extremities exam: Present: normal inspection - Neurological Exam Neurological exam: Present: alert, oriented X3 - Skin Skin exam: Present: normal color, warm, intact Results - Labs CBC & BMP: 05/26/17 02:28 05/26/17 02:28
[2017-05-27] MEDS: WARFARIN 1 MG TABLET PO SCH (18:28)
[2017-05-27] MEDS: ROSUVASTATIN 10 MG TABLET PO SCH (21:18)
[2017-05-28 03:49] LABS: Basophils % 0.5 % (0.0-0.8); Eosinophils # 0.2 10*3/uL (0.0-0.87); Eosinophils % 2.5 % (0.00-10.9); Hematocrit 30.7 VOL% (35.7-47.0); Hemoglobin 10.3 GM/DL (12.0-16.0); Immature Granulocytes % 0.5 %; Immature Granulocytes Absolute 0.03 #; Lymphocytes # 1.6 10*3/uL (1.4-4.0); Lymphocytes % 25.2 % (21.3-54.2); Mean Corpuscular HGB Conc 33.6 GM/DL (32-36); Mean Corpuscular Hemoglobin 32 PG (27-34); Mean Corpuscular Volume 96.5 FL (87-102); Mean Platelet Volume 11.3 FL (9.6-12.0); Monocytes # 0.5 10*3/uL (0.11-0.8); Monocytes % 8.1 % (1.7-12.7); Neutrophils # 4.1 10*3/uL (1.4-7.4); Neutrophils % 63.2 % (38.7-73.9); Platelet Count 213 T/CUMM (130-400); Red Blood Count 3.18 MC/CUMM (3.8-5.5); Red Cell Distribution Width 15.4 % (9.3-17.3); White Blood Count 6.5 T/CUMM (4-12)
[2017-05-28 03:56] LABS: INR 2.9
[2017-05-28 04:08] LABS: PT Patient Result 29.6 SECS
[2017-05-28 04:27] LABS: Calcium 9.8 MG/DL (8.5-10.1); Osmolality,Calculated 281.8 MOS/KG (273-304); Potassium 4.1 MMOL/L (3.5-5.1)
[2017-05-28] MEDS: AMIODARONE INJ 450 MG in DEXTROSE 5% 241 ML IV SCH ×2 (05:35→05:36)
[2017-05-28] MEDS: PANTOPRAZOLE 40 MG TABLET PO SCH (08:33)
[2017-05-28] MEDS: ASPIRIN EC 81 MG TABLET PO SCH (08:33)
[2017-05-28] MEDS: ISOSORBIDE DINITRATE 20 MG TABLET PO SCH ×2 (08:33→15:04)
[2017-05-28] MEDS: SPIRONOLACTONE 25 MG TABLET PO SCH (08:33)
[2017-05-28] MEDS: FUROSEMIDE 40 MG TABLET PO SCH (08:33)
--- NOTE | 2017-05-28 08:33 | Cardiology Progress Note ---
Assessment and Plan - Time spent with patient Time spent with patient: Less than 30 minutes (1) Atrial flutter Status: Acute Assessment and plan: See plan of care listed below. Current Visit: Yes (2) Syncope Status: Acute Assessment and plan: See plan of care listed below. Current Visit: Yes (3) HTN (hypertension) Status: Chronic Assessment and plan: See plan of care listed below. Current Visit: No (4) History of DVT of lower extremity Status: Resolved Assessment and plan: See plan of care listed below. Current Visit: No (5) Anticoagulated on Coumadin Status: Chronic Assessment and plan: See plan of care listed below. Current Visit: Yes (6) Hyperlipidemia Status: Acute Assessment and plan: See plan of care listed below. 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 Vigil SUMMARY: 87-year-old female, presenting with chest pain, mildly elevated cardiac enzymes, in context of atrial flutter/RVR. Chest pain resolved with rhythm control. History of DVT, on Coumadin, hypertension, diabetes mellitus, debility, frailty, recurrent syncopal with multiple injuries this year. MAY 28, 2017: Ms. Manning is seen sitting up at the bedside this morning eating breakfast. We are continuing to follow her for atrial flutter, now converted to sinus rhythm with IV amiodarone. Her heart rates have been well controlled in the 60s-70s. She denies complaints this morning. She has been on IV amiodarone over 36 hours. We will transition her to PO amiodarone today and discontinue her IV amiodarone. Continue with the present therapy. Will await additional recommendations from Dr. Wlaler. REVIEW OF SYSTEMS: CARDIAC: Denies chest pain. RESPIRATORY: Denies shortness of breath. IMPRESSION/PLAN: - ATRIAL FLUTTER: Now converted with amiodarone infusion. Heart rate well controlled in the 60s. Flutter morphology appears to be typical on the EKG O2 RVR limits interpretation. She may be a candidate for flutter ablation, if medically difficult to control. She has multiple arrhythmia morphologies, she would be better served with medical management +- PM. Echocardiogram revealed moderate LVH, EF 60%, mild aortic stenosis, trace aortic insufficiency, moderate MR, moderate TR, mild pulmonic regurgitation. - SYNCOPE: Recurrent syncope with injuries. She will need a 30 day event recorder on discharge, if no significant arrhythmias documented during his hospital stay. She may have symptomatic SSS or conversion pauses - HYPERTENSION: Currently well controlled on current therapy. Will continue to monitor and adjust accordingly. - HISTORY OF DVT: Continue anticoagulation with Coumadin. - CHRONIC ANTICOAGULATION: Continue anticoagulation. Monitor INR. - HYPERLIPIDEMIA: Continue lipid lowering agent for goal LDL less than 100. Exam (Progress Note) - Constitutional Vitals: Period Temp Pulse Resp BP Sys/Ghotra Pulse Ox Last 24 Hr 97.6 F-100 F 67-77 18-18 100-158/69-79 95-99 Exam: General appearance: Appears well. Pleasant and cooperative. Overweight, no acute distress. Head exam: Present: normal inspection, normocephalic, atraumatic. Absent: hematoma, laceration Eye exam: Present: EOMI. Absent: conjunctival injection, nystagmus, periorbital swelling, scleral icterus, laceration to eyelids, jaundice Pupils: Present: PERRL. Absent: constricted, dilated, fixed, irregular, unequal ENT exam: Present: normal exam, normal external ear exam, mucous membranes moist. Neck exam: Present: normal inspection, midline trachea. Absent: masses, lymphadenopathy, tenderness, thyromegaly, carotid bruit Respiratory exam: Present: clear to auscultation bilaterally. Absent: accessory muscle use, chest wall tenderness, rales, rhonchi, wheezing. Cardiovascular exam: Present: regular rate and rhythm. Systolic murmur. Absent : gallop, JVD, rubs GI/Abdominal exam: Present: normal bowel sounds, soft. Absent: distended, firm , hernia, mass, tenderness. Extremities exam: Present: Poor Gait, No Clubbing, No Cyanosis, Upper Extr. Pulses 2+, Lower Extr. Pulses 2+, trace LLE edema. Capillary refill less than 3 seconds. Musculoskeletal: Present: No Fluid Collection, No Pain, Normal Range of Motion Back exam: Present: normal inspection. Absent: muscle spasm, vertebral tenderness Neurological exam: Present: awake, alert, oriented X3, Moves all extremities well without hemiparesis or paralysis. Grossly intact without resting or essential tremor Psychiatric exam: Present: normal affect, normal mood Skin exam: Present: multiple suffusion, frail skin, warm, dry, intact. Absent: cyanosis, diaphoretic, rash, urticaria Result/EKG - Labs CBC & BMP: 05/28/17 02:36 05/28/17 02:36 Lab Results: I have reviewed the past 24 hour labs Labs: Laboratory Results - last 24 hr 05/28/17 05/28/17 05/28/17 02:36 02:36 02:36 WBC 6.5 RBC 3.18 L Hgb 10.3 L Hct 30.7 L MCV 96.5 MCH 32 MCHC 33.6 RDW 15.4 Plt Count 213 MPV 11.3 Neut % (Auto) 63.2 Lymph % (Auto) 25.2 [place] % (Auto) 8.1 Eos % (Auto) 2.5 Baso % (Auto) 0.5 Neut # (Auto) 4.1 Lymph # (Auto) 1.6 [place] # (Auto) 0.5 Eos # (Auto) 0.2 Baso # (Auto) 0.0 Immature Gran % 0.5 Nucleated RBC % 0.0 Immature Gran # 0.03 Nucleated RBCs # 0.00 Immature Plt Fraction 0.0 INR 2.9 PT Patient/Control Mix 29.6 Sodium 137 Potassium 4.1 Chloride 100 Carbon Dioxide 30 Anion Gap 11.1 BUN 34 H Creatinine 1.40 H GFR Calculation 31 BUN/Creatinine Ratio 24.00 H Glucose 120 H Calculated Osmolality 281.8 Calcium 9.8 - EKG EKG results: interpreted by me, sinus rhythm
[2017-05-28] MEDS ORDERED: AMIODARONE 200 MG TABLET PO SCH (09:00)
--- NOTE | 2017-05-28 10:37 | Discharge Summary ---
Hospital Course - Hospital Course Hospital Course: Ms. Manning is a 87 year old female, who was not seen by cardiology previously. She has a remote history of DVT, anticoagulated with Coumadin. She had multiple falls, with fractures, was hospitalized twice this year at [facility], with wrist and facial injuries. Atrial flutter/RVR was documented on earlier admission, no cardiac evaluation was pursued at that time. She was admitted with chest pain, retrosternal, without radiation, moderate intensity, which started last night. She took apparently 18 nitroglycerin pills , but the pain did not go away she came to the hospital. On admission, she was in atrial flutter/RVR, IV Cardizem was started. Now, she converted back to sinus rhythm, the pain resolved. Enzymes are slightly elevated and no EKG was done since she converted back to sinus rhythm. No significant conversion pause on telemetry. She otherwise does not have chest pain with activity, felt several episodes of short-term other palpitations recently. No leg swelling. She is compliant with her medications, INR is therapeutic and she is followed by the primary care physician, Dr. Cardoza. History of type 2 diabetes mellitus, hypertension, DVT. No history of thyroid issues, there are no TFTs in the EMR. She also has gastroesophageal reflux, treated with PPI, and arthritis. X-ray showed no significant pulmonary congestion. Patient was admitted to the hospital with atrial fibrillation with rapid ventricular response. She was treated with intravenous amiodarone. She was seen in consultation by Dr. Eddie Waller of cardiology. She subsequently converted back to normal sinus rhythm. The time of her discharge she was comfortable with no complaints. Diagnosis - Discharge Diagnosis (1) HTN (hypertension) Status: Chronic (2) Diabetes Status: Chronic (3) Chronic renal insufficiency Status: Chronic (4) Atrial fibrillation with RVR Status: Acute (5) Chest pain Status: Acute (6) Anticoagulated on Coumadin Status: Chronic Discharge Plan - Discharge Data Disposition: Disch To Home/Self Care Condition at Discharge: Stable Discharge Diet: advance to your usual diet Activity: resume usual activities as tolerated - Discharge Medications New Amiodarone Tab [Cordarone Tab] 200 mg PO BID #60 tablet Spironolactone [Aldactone] 25 mg PO DAILY #30 tablet Rosuvastatin [Crestor] 10 mg PO BEDTIME #30 tablet Continue metFORMIN [Glucophage] 1,000 mg PO DAILY Spironolactone [Aldactone] 25 mg PO DAILY Isosorbide Dinitrate 20 mg PO TID dilTIAZem HCl [Diltiazem ER (12 hr)] 120 mg PO DAILY Furosemide Tab [Lasix Tab] 40 mg PO DAILY Potassium Chloride 8 meq PO QOTHER DAY Omeprazole 20 mg PO DAILY Warfarin [Coumadin] 2.5 mg PO DAILY@1800 - Follow Up or Referral - Forms/Instructions Exam - Constitutional Vitals: Period Temp Pulse Resp BP Sys/Ghotra Pulse Ox Last 24 Hr 97.6 F-100 F 67-77 18-18 100-158/69-79 95-99 Discharge Results Labs on day of discharge: Labs from last 24 hours 05/28/17 05/28/17 05/28/17 02:36 02:36 02:36 WBC 6.5 RBC 3.18 L Hgb 10.3 L Hct 30.7 L MCV 96.5 MCH 32 MCHC 33.6 RDW 15.4 Plt Count 213 MPV 11.3 Neut % (Auto) 63.2 Lymph % (Auto) 25.2 Crisp % (Auto) 8.1 Eos % (Auto) 2.5 Baso % (Auto) 0.5 Neut # (Auto) 4.1 Lymph # (Auto) 1.6 Crisp # (Auto) 0.5 Eos # (Auto) 0.2 Baso # (Auto) 0.0 Immature Gran % 0.5 Nucleated RBC % 0.0 Immature Gran # 0.03 Nucleated RBCs # 0.00 Immature Plt Fraction 0.0 INR 2.9 PT Patient/Control Mix 29.6 Sodium 137 Potassium 4.1 Chloride 100 Carbon Dioxide 30 Anion Gap 11.1 BUN 34 H Creatinine 1.40 H GFR Calculation 31 BUN/Creatinine Ratio 24.00 H Glucose 120 H Calculated Osmolality 281.8 Calcium 9.8 DS: Provider Date of admission: 05/26/17 05:55 Primary care physician: . 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
[2017-05-28 12:36] VITALS: BP 126/72
[2017-05-28] MEDS ORDERED: INFLUENZA VIRUS VACCINE 0.5 ML SYRINGE IM ONE (14:33)
== END 2017-05-28 15:03 | disposition home or self-care (01) | DRG 309 ==
LOC: EDBD → EDUNIT# → N.ED 00:21 → N.EDINP 05:55 → N.TELES 06:51

== ENCOUNTER 2017-07-21 19:33 | Inpatient (IN) ==
[2017-07-21] MEDS ORDERED: SODIUM CHLORIDE 0.9% 1,000 ML IV STA ×2 (19:59→22:05)
[2017-07-21] MEDS ORDERED: ONDANSETRON 4 MG/2 ML VIAL IV STA (19:59)
[2017-07-21 20:06] LABS: Basophils % 0.3 % (0.0-0.8); Eosinophils % 0.3 % (0.00-10.9); Hemoglobin 9.8 GM/DL (12.0-16.0); Immature Granulocytes % 0.6 %; Immature Granulocytes Absolute 0.07 #; Lymphocytes # 1.9 10*3/uL (1.4-4.0); Lymphocytes % 16.4 % (21.3-54.2); Mean Corpuscular HGB Conc 33.8 GM/DL (32-36); Mean Corpuscular Hemoglobin 33 PG (27-34); Mean Corpuscular Volume 96.7 FL (87-102); Mean Platelet Volume 11.2 FL (9.6-12.0); Monocytes # 0.7 10*3/uL (0.11-0.8); Monocytes % 5.9 % (1.7-12.7); NRBC # 0.04 10*3/uL; Neutrophils # 8.8 10*3/uL (1.4-7.4); Neutrophils % 76.5 % (38.7-73.9); Platelet Count 274 T/CUMM (130-400); Red Cell Distribution Width 16.8 % (9.3-17.3); White Blood Count 11.5 T/CUMM (4-12)
[2017-07-21] MEDS ORDERED: ONDANSETRON 4 MG/2 ML VIAL ONE (20:11)
[2017-07-21 21:44] LABS: Albumin 3.4 G/DL (3.4-5.0); Bilirubin,Total 0.4 MG/DL (0.2-1.0); Osmolality,Calculated 294.8 MOS/KG (273-304); Total Protein 7.4 G/DL (6.4-8.3); Troponin I Only 0.039 NG/ML (0.00-0.045)
[2017-07-21 21:47] LABS: Potassium 6.9 MMOL/L (3.5-5.1)
[2017-07-21] MEDS ORDERED: INSULIN REGULAR 100 UNIT/ML IV STA (22:05)
[2017-07-21] MEDS ORDERED: CALCIUM GLUCONATE 2,000 MG in SODIUM CHLORIDE 0.9% 100 ML IV ONE (22:06)
[2017-07-21] MEDS ORDERED: DEXTROSE 50% 25 GM/50 ML VIAL IV STA (22:06)
[2017-07-21] MEDS ORDERED: SODIUM BICARBONATE 50 MEQ/50 ML VIAL IV STA (22:07)
[2017-07-21] MEDS ORDERED: DEXTROSE 50% 25 GM/50 ML SYRINGE IV ONE (22:18)
[2017-07-21] MEDS ORDERED: SODIUM BICARBONATE 50 MEQ/50 ML SYRINGE IV ONE (22:18)
[2017-07-21] MEDS ORDERED: CALCIUM GLUCONATE 1,000 MG/10 ML VIAL IV ONE (22:19)
[2017-07-21] MEDS ORDERED: INSULIN REGULAR 100 UNIT/ML ONE (22:21)
[2017-07-21] MEDS ORDERED: ONDANSETRON 4 MG/2 ML VIAL IV PRN (22:56)
[2017-07-21] MEDS ORDERED: GLUCAGON 1 MG VIAL IM PRN (23:06)
[2017-07-21] MEDS ORDERED: DEXTROSE 50% 25 GM/50 ML VIAL IV PRN (23:06)
[2017-07-22] MEDS: SODIUM POLYSTYRENE SULFATE 15 GM/60 ML BOTTLE PO SCH ×2 (01:28→06:26)
[2017-07-22] MEDS: SODIUM CHLORIDE 0.9% 1,000 ML IV SCH ×3 (01:29→17:31)
[2017-07-22 03:04] LABS: PT Patient Result > 200.0 SECS
[2017-07-22 03:07] LABS: INR > 20.0
[2017-07-22] MEDS ORDERED: PHYTONADIONE 5 MG TABLET PO ONE ×2 (03:31→10:00)
[2017-07-22] MEDS ORDERED: SODIUM CHLORIDE 0.9% 1,000 ML IV PRN (03:33)
[2017-07-22 06:08] LABS: Apearance,Urine CLOUDY (Clear); Bacteria,Urine Many /HPF (Few); Bilirubin,Urine Negative (Negative); Blood, Urine Moderate mg/dL (Negative); Glucose,Urine (UA) Negative (Negative); Ketones,Urine Negative (Negative); Mucus,Urine Occasional /LPF (Occasional); Nitrite,Urine Negative (Negative); Protein,Urine 30 MG/DL; RBC,Urine 5 /HPF (0-4); Urine Specific Gravity 1.008 (1.001-1.035); Urine Urobilinogen < 2.0 EU/DL (0.2-1.0); WBC,Urine 295 /HPF (0-6)
[2017-07-22 06:09] LABS: Urine Color Yellow (Yellow)
[2017-07-22 07:53] LABS: Basophils % 0.2 % (0.0-0.8); Eosinophils # 0.1 10*3/uL (0.0-0.87); Eosinophils % 0.9 % (0.00-10.9); Hematocrit 25.2 VOL% (35.7-47.0); Hemoglobin 8.8 GM/DL (12.0-16.0); Immature Granulocytes % 0.9 %; Immature Granulocytes Absolute 0.08 #; Lymphocytes # 2.1 10*3/uL (1.4-4.0); Lymphocytes % 22.8 % (21.3-54.2); Mean Corpuscular HGB Conc 34.9 GM/DL (32-36); Mean Corpuscular Hemoglobin 33 PG (27-34); Mean Corpuscular Volume 94.4 FL (87-102); Mean Platelet Volume 11.6 FL (9.6-12.0); Monocytes # 0.9 10*3/uL (0.11-0.8); Monocytes % 9.6 % (1.7-12.7); NRBC # 0.06 10*3/uL; Neutrophils % 65.6 % (38.7-73.9); Platelet Count 210 T/CUMM (130-400); Red Blood Count 2.67 MC/CUMM (3.8-5.5); Red Cell Distribution Width 16.7 % (9.3-17.3); White Blood Count 9.2 T/CUMM (4-12)
[2017-07-22 07:59] LABS: Calcium 9.9 MG/DL (8.5-10.1); Osmolality,Calculated 305.5 MOS/KG (273-304); Potassium 5.2 MMOL/L (3.5-5.1)
[2017-07-22 08:05] LABS: Protein/Creatinine Ratio,Urine 1.7 RATIO
[2017-07-22 08:06] LABS: Microcytosis 1+; Target Cells Slight
[2017-07-22 08:07] LABS: Anisocytosis 1+; Hypochromasia Slight; Ovalocytes Slight; Platelet Estimate Normal
[2017-07-22] MEDS: INSULIN REGULAR 100 UNIT/ML SUBCUT SCH ×4 (08:09→20:44)
[2017-07-22 08:30] LABS: PT Patient Result > 200.0 SECS
[2017-07-22 08:35] LABS: INR > 20.0
[2017-07-22] MEDS: DILTIAZEM CD 120 MG CAPSULE PO SCH (08:50)
[2017-07-22] MEDS: GABAPENTIN 100 MG CAPSULE PO SCH ×2 (08:50→20:44)
[2017-07-22] MEDS: PANTOPRAZOLE 40 MG TABLET PO SCH (08:50)
[2017-07-22] MEDS: ISOSORBIDE DINITRATE 20 MG TABLET PO SCH ×3 (08:50→20:44)
[2017-07-22] MEDS ORDERED: NON-FORMULARY MEDICATION (Omeprazole [Omeprazole] 20 MG) PO SCH (09:00)
[2017-07-22] MEDS ORDERED: ZINC OXIDE PASTE 113 GM TUBE TOP PRN (15:25)
[2017-07-22] MEDS ORDERED: WARFARIN 2.5 MG TABLET PO SCH (18:00)
[2017-07-22 19:28] LABS: INR 3.2
[2017-07-22 19:57] LABS: PT Patient Result 32.8 SECS
[2017-07-23] MEDS: SODIUM CHLORIDE 0.9% 1,000 ML IV SCH ×4 (00:04→23:10)
[2017-07-23 06:59] LABS: INR 4.4
[2017-07-23 07:10] LABS: PT Patient Result 43.8 SECS
[2017-07-23 07:12] LABS: Calcium 8.9 MG/DL (8.5-10.1); Osmolality,Calculated 302.1 MOS/KG (273-304); Potassium 3.1 MMOL/L (3.5-5.1)
[2017-07-23] MEDS: DILTIAZEM CD 120 MG CAPSULE PO SCH (09:00)
[2017-07-23] MEDS: INSULIN REGULAR 100 UNIT/ML SUBCUT SCH ×4 (09:00→21:03)
[2017-07-23] MEDS: ISOSORBIDE DINITRATE 20 MG TABLET PO SCH ×3 (09:01→20:19)
[2017-07-23] MEDS: PANTOPRAZOLE 40 MG TABLET PO SCH (09:01)
[2017-07-23] MEDS: GABAPENTIN 100 MG CAPSULE PO SCH ×2 (09:01→20:19)
[2017-07-23] MEDS: cefTRIAXone 1,000 MG in SYRINGE 1 EACH IV SCH (17:12)
[2017-07-24 06:25] LABS: Basophils % 0.2 % (0.0-0.8); Eosinophils # 0.1 10*3/uL (0.0-0.87); Eosinophils % 1.9 % (0.00-10.9); Hematocrit 20.1 VOL% (35.7-47.0); Hemoglobin 6.6 GM/DL (12.0-16.0); Immature Granulocytes % 2.4 %; Immature Granulocytes Absolute 0.15 #; Lymphocytes # 1.7 10*3/uL (1.4-4.0); Lymphocytes % 26.7 % (21.3-54.2); Mean Corpuscular HGB Conc 32.8 GM/DL (32-36); Mean Corpuscular Hemoglobin 33 PG (27-34); Mean Corpuscular Volume 99.5 FL (87-102); Mean Platelet Volume 10.9 FL (9.6-12.0); Monocytes # 0.5 10*3/uL (0.11-0.8); Neutrophils # 3.8 10*3/uL (1.4-7.4); Neutrophils % 60.8 % (38.7-73.9); Platelet Count 172 T/CUMM (130-400); Red Blood Count 2.02 MC/CUMM (3.8-5.5); Red Cell Distribution Width 17.2 % (9.3-17.3); White Blood Count 6.2 T/CUMM (4-12)
[2017-07-24 06:50] LABS: PT Patient Result 57.1 SECS
[2017-07-24 06:51] LABS: INR 5.8
[2017-07-24 06:52] LABS: Calcium 8.9 MG/DL (8.5-10.1); Magnesium 1.6 MG/DL (1.8-2.4); Osmolality,Calculated 298.8 MOS/KG (273-304)
[2017-07-24] MEDS ORDERED: MAGNESIUM SULF RIDER 4 GM in PREMIX 1 EACH IV PRN (09:16)
[2017-07-24] MEDS ORDERED: MAGNESIUM SULF RIDER 2 GM in PREMIX 1 EACH IV PRN (09:16)
[2017-07-24] MEDS ORDERED: PHYTONADIONE 5 MG TABLET PO ONE (09:20)
[2017-07-24] MEDS: INSULIN REGULAR 100 UNIT/ML SUBCUT SCH ×4 (09:43→22:29)
[2017-07-24 10:39] LABS: Hematocrit 20.5 VOL% (35.7-47.0); Hemoglobin 6.6 GM/DL (12.0-16.0)
[2017-07-24] MEDS: SODIUM CHLORIDE 0.9% 1,000 ML IV SCH (10:50)
[2017-07-24] MEDS: GABAPENTIN 100 MG CAPSULE PO SCH ×2 (10:51→21:53)
[2017-07-24] MEDS: PANTOPRAZOLE 40 MG TABLET PO SCH (10:51)
[2017-07-24] MEDS: ISOSORBIDE DINITRATE 20 MG TABLET PO SCH ×3 (10:51→21:52)
[2017-07-24] MEDS: DILTIAZEM CD 120 MG CAPSULE PO SCH (10:51)
[2017-07-24] MEDS: POTASSIUM CHLORIDE RIDER 10 MEQ in PREMIX 1 EACH IV PRN ×2 (10:52→11:59)
[2017-07-24] MEDS ORDERED: SODIUM CHLORIDE 0.9% 1,000 ML IV PRN (11:02)
[2017-07-24] MEDS: cefTRIAXone 1,000 MG in SYRINGE 1 EACH IV SCH (17:02)
[2017-07-24 20:17] LABS: PT Patient Result 55.5 SECS
[2017-07-24 20:19] LABS: INR 5.6
[2017-07-25] MEDS: SODIUM CHLORIDE 0.9% 1,000 ML IV SCH ×5 (00:54→16:18)
[2017-07-25 01:33] LABS: Calcium 8.4 MG/DL (8.5-10.1); Magnesium 1.3 MG/DL (1.8-2.4); Osmolality,Calculated 291.1 MOS/KG (273-304); Potassium 3.3 MMOL/L (3.5-5.1)
[2017-07-25] MEDS: POTASSIUM CHLORIDE 20 MEQ TABLET PO PRN ×3 (01:47→06:49)
[2017-07-25 06:57] LABS: Basophils % 0.4 % (0.0-0.8); Eosinophils # 0.1 10*3/uL (0.0-0.87); Eosinophils % 2.2 % (0.00-10.9); Hematocrit 28.1 VOL% (35.7-47.0); Hemoglobin 9.2 GM/DL (12.0-16.0); Immature Granulocytes % 2.4 %; Immature Granulocytes Absolute 0.13 #; Lymphocytes # 1.3 10*3/uL (1.4-4.0); Lymphocytes % 23.2 % (21.3-54.2); Mean Corpuscular HGB Conc 32.7 GM/DL (32-36); Mean Corpuscular Hemoglobin 31 PG (27-34); Mean Corpuscular Volume 93.7 FL (87-102); Monocytes # 0.5 10*3/uL (0.11-0.8); Monocytes % 8.4 % (1.7-12.7); NRBC # 0.12 10*3/uL; Neutrophils # 3.5 10*3/uL (1.4-7.4); Neutrophils % 63.4 % (38.7-73.9); Platelet Count 157 T/CUMM (130-400); Red Cell Distribution Width 19.1 % (9.3-17.3); White Blood Count 5.5 T/CUMM (4-12)
[2017-07-25 07:08] LABS: INR 4.6
[2017-07-25 07:11] LABS: PT Patient Result 46.2 SECS
[2017-07-25 07:42] LABS: Calcium 8.2 MG/DL (8.5-10.1); Magnesium 1.4 MG/DL (1.8-2.4); Osmolality,Calculated 290.1 MOS/KG (273-304); Potassium 3.6 MMOL/L (3.5-5.1)
[2017-07-25] MEDS: INSULIN REGULAR 100 UNIT/ML SUBCUT SCH ×4 (08:04→21:11)
[2017-07-25] MEDS: ISOSORBIDE DINITRATE 20 MG TABLET PO SCH ×3 (09:11→21:11)
[2017-07-25] MEDS: DILTIAZEM CD 120 MG CAPSULE PO SCH (09:11)
[2017-07-25] MEDS: PANTOPRAZOLE 40 MG TABLET PO SCH (09:11)
[2017-07-25] MEDS: GABAPENTIN 100 MG CAPSULE PO SCH ×2 (09:11→21:11)
[2017-07-25] MEDS: cefTRIAXone 1,000 MG in SYRINGE 1 EACH IV SCH (16:13)
[2017-07-26] MEDS: SODIUM CHLORIDE 0.9% 1,000 ML IV SCH ×4 (02:02→19:23)
[2017-07-26 07:01] LABS: Basophils % 0.4 % (0.0-0.8); Eosinophils # 0.1 10*3/uL (0.0-0.87); Eosinophils % 2.5 % (0.00-10.9); Hemoglobin 9.7 GM/DL (12.0-16.0); Immature Granulocytes % 2.5 %; Immature Granulocytes Absolute 0.13 #; Lymphocytes # 1.4 10*3/uL (1.4-4.0); Lymphocytes % 27.4 % (21.3-54.2); Mean Corpuscular HGB Conc 32.3 GM/DL (32-36); Mean Corpuscular Hemoglobin 31 PG (27-34); Mean Corpuscular Volume 94.6 FL (87-102); Mean Platelet Volume 11.3 FL (9.6-12.0); Monocytes # 0.4 10*3/uL (0.11-0.8); Monocytes % 7.5 % (1.7-12.7); NRBC # 0.08 10*3/uL; Neutrophils # 3.1 10*3/uL (1.4-7.4); Neutrophils % 59.7 % (38.7-73.9); Platelet Count 164 T/CUMM (130-400); Red Blood Count 3.17 MC/CUMM (3.8-5.5); Red Cell Distribution Width 19.4 % (9.3-17.3); White Blood Count 5.2 T/CUMM (4-12)
[2017-07-26 07:17] LABS: INR 4.6
[2017-07-26 07:18] LABS: PT Patient Result 46.2 SECS
[2017-07-26 07:36] LABS: Calcium 8.1 MG/DL (8.5-10.1); Magnesium 1.1 MG/DL (1.8-2.4); Osmolality,Calculated 288.8 MOS/KG (273-304); Potassium 3.7 MMOL/L (3.5-5.1)
[2017-07-26] MEDS: PANTOPRAZOLE 40 MG TABLET PO SCH (09:00)
[2017-07-26] MEDS: ISOSORBIDE DINITRATE 20 MG TABLET PO SCH ×3 (09:00→20:24)
[2017-07-26] MEDS: GABAPENTIN 100 MG CAPSULE PO SCH ×2 (09:00→20:24)
[2017-07-26] MEDS: DILTIAZEM CD 120 MG CAPSULE PO SCH (09:00)
[2017-07-26] MEDS: INSULIN REGULAR 100 UNIT/ML SUBCUT SCH ×4 (09:00→23:06)
[2017-07-26] MEDS ORDERED: PHENOL 1.4% THROAT SPRAY 177 ML BOTTLE PO PRN (14:41)
[2017-07-26] MEDS: cefTRIAXone 1,000 MG in SYRINGE 1 EACH IV SCH (16:09)
[2017-07-27 03:42] LABS: Basophils % 0.3 % (0.0-0.8); Eosinophils # 0.1 10*3/uL (0.0-0.87); Eosinophils % 1.8 % (0.00-10.9); Hematocrit 28.1 VOL% (35.7-47.0); Hemoglobin 9.1 GM/DL (12.0-16.0); Immature Granulocytes % 2.2 %; Immature Granulocytes Absolute 0.13 #; Lymphocytes # 1.4 10*3/uL (1.4-4.0); Lymphocytes % 23.9 % (21.3-54.2); Mean Corpuscular HGB Conc 32.4 GM/DL (32-36); Mean Corpuscular Hemoglobin 31 PG (27-34); Mean Corpuscular Volume 95.3 FL (87-102); Mean Platelet Volume 10.7 FL (9.6-12.0); Monocytes # 0.4 10*3/uL (0.11-0.8); Monocytes % 7.2 % (1.7-12.7); NRBC # 0.05 10*3/uL; Neutrophils # 3.8 10*3/uL (1.4-7.4); Neutrophils % 64.6 % (38.7-73.9); Platelet Count 153 T/CUMM (130-400); Red Blood Count 2.95 MC/CUMM (3.8-5.5); Red Cell Distribution Width 18.9 % (9.3-17.3)
[2017-07-27] MEDS: SODIUM CHLORIDE 0.9% 1,000 ML IV SCH ×3 (04:33→21:27)
[2017-07-27 05:09] LABS: PT Patient Result 70.5 SECS
[2017-07-27 06:58] LABS: INR 4.8
[2017-07-27 07:07] LABS: PT Patient Result 48.2 SECS
[2017-07-27 07:08] LABS: INR 7.2
[2017-07-27] MEDS: INSULIN REGULAR 100 UNIT/ML SUBCUT SCH ×4 (09:18→21:10)
[2017-07-27] MEDS: ISOSORBIDE DINITRATE 20 MG TABLET PO SCH ×3 (09:19→20:14)
[2017-07-27] MEDS: DILTIAZEM CD 120 MG CAPSULE PO SCH (09:19)
[2017-07-27] MEDS: PANTOPRAZOLE 40 MG TABLET PO SCH (09:19)
[2017-07-27] MEDS: GABAPENTIN 100 MG CAPSULE PO SCH ×2 (09:19→20:14)
[2017-07-27] MEDS: cefTRIAXone 1,000 MG in SYRINGE 1 EACH IV SCH (17:14)
[2017-07-28 02:46] LABS: PT Patient Result 55.5 SECS
[2017-07-28 02:47] LABS: INR 5.6
[2017-07-28 02:48] LABS: Basophils % 0.4 % (0.0-0.8); Eosinophils # 0.1 10*3/uL (0.0-0.87); Eosinophils % 1.7 % (0.00-10.9); Hematocrit 27.2 VOL% (35.7-47.0); Hemoglobin 8.9 GM/DL (12.0-16.0); Immature Granulocytes % 2.1 %; Immature Granulocytes Absolute 0.11 #; Lymphocytes # 1.2 10*3/uL (1.4-4.0); Lymphocytes % 23.2 % (21.3-54.2); Mean Corpuscular HGB Conc 32.7 GM/DL (32-36); Mean Corpuscular Hemoglobin 31 PG (27-34); Mean Corpuscular Volume 93.5 FL (87-102); Mean Platelet Volume 10.7 FL (9.6-12.0); Monocytes # 0.4 10*3/uL (0.11-0.8); Monocytes % 7.9 % (1.7-12.7); NRBC # 0.04 10*3/uL; Neutrophils # 3.4 10*3/uL (1.4-7.4); Neutrophils % 64.7 % (38.7-73.9); Platelet Count 152 T/CUMM (130-400); Red Blood Count 2.91 MC/CUMM (3.8-5.5); Red Cell Distribution Width 19.1 % (9.3-17.3); White Blood Count 5.2 T/CUMM (4-12)
[2017-07-28] MEDS: SODIUM CHLORIDE 0.9% 1,000 ML IV SCH ×3 (05:10→20:33)
[2017-07-28] MEDS: INSULIN REGULAR 100 UNIT/ML SUBCUT SCH ×4 (08:15→21:55)
[2017-07-28] MEDS ORDERED: PHYTONADIONE 5 MG TABLET PO ONE (08:46)
[2017-07-28] MEDS: PANTOPRAZOLE 40 MG TABLET PO SCH (09:18)
[2017-07-28] MEDS: ISOSORBIDE DINITRATE 20 MG TABLET PO SCH ×3 (09:18→20:33)
[2017-07-28] MEDS: DILTIAZEM CD 120 MG CAPSULE PO SCH (09:18)
[2017-07-28] MEDS: GABAPENTIN 100 MG CAPSULE PO SCH ×2 (09:18→20:33)
[2017-07-28] MEDS: cefTRIAXone 1,000 MG in SYRINGE 1 EACH IV SCH (17:48)
[2017-07-29 05:39] LABS: Basophils % 0.4 % (0.0-0.8); Eosinophils # 0.1 10*3/uL (0.0-0.87); Eosinophils % 1.6 % (0.00-10.9); Hematocrit 31.7 VOL% (35.7-47.0); Hemoglobin 10.3 GM/DL (12.0-16.0); Immature Granulocytes % 1.5 %; Lymphocytes # 2.3 10*3/uL (1.4-4.0); Lymphocytes % 34.6 % (21.3-54.2); Mean Corpuscular HGB Conc 32.5 GM/DL (32-36); Mean Corpuscular Hemoglobin 31 PG (27-34); Mean Corpuscular Volume 94.6 FL (87-102); Mean Platelet Volume 10.7 FL (9.6-12.0); Monocytes # 0.6 10*3/uL (0.11-0.8); Monocytes % 8.5 % (1.7-12.7); Neutrophils # 3.6 10*3/uL (1.4-7.4); Neutrophils % 53.4 % (38.7-73.9); Platelet Count 163 T/CUMM (130-400); Red Blood Count 3.35 MC/CUMM (3.8-5.5); Red Cell Distribution Width 19.8 % (9.3-17.3); White Blood Count 6.7 T/CUMM (4-12)
[2017-07-29 05:46] LABS: INR 1.3; PT Patient Result 13.9 SECS
[2017-07-29] MEDS: INSULIN REGULAR 100 UNIT/ML SUBCUT SCH ×4 (08:47→21:28)
[2017-07-29] MEDS: GABAPENTIN 100 MG CAPSULE PO SCH ×2 (09:35→21:26)
[2017-07-29] MEDS: ISOSORBIDE DINITRATE 20 MG TABLET PO SCH ×3 (09:35→21:27)
[2017-07-29] MEDS: PANTOPRAZOLE 40 MG TABLET PO SCH (09:35)
[2017-07-29] MEDS: DILTIAZEM CD 120 MG CAPSULE PO SCH (09:35)
[2017-07-29] MEDS: SODIUM CHLORIDE 0.9% 1,000 ML IV SCH ×3 (10:00→20:17)
[2017-07-30] MEDS: SODIUM CHLORIDE 0.9% 1,000 ML IV SCH ×2 (04:04→12:13)
[2017-07-30] MEDS: INSULIN REGULAR 100 UNIT/ML SUBCUT SCH ×3 (07:51→17:44)
[2017-07-30 08:16] LABS: Basophils % 0.5 % (0.0-0.8); Eosinophils # 0.1 10*3/uL (0.0-0.87); Eosinophils % 1.7 % (0.00-10.9); Hematocrit 31.1 VOL% (35.7-47.0); Hemoglobin 9.9 GM/DL (12.0-16.0); Immature Granulocytes % 1.5 %; Immature Granulocytes Absolute 0.09 #; Lymphocytes % 16.5 % (21.3-54.2); Mean Corpuscular HGB Conc 31.8 GM/DL (32-36); Mean Corpuscular Hemoglobin 31 PG (27-34); Mean Corpuscular Volume 96.6 FL (87-102); Mean Platelet Volume 10.8 FL (9.6-12.0); Monocytes # 0.6 10*3/uL (0.11-0.8); Monocytes % 9.4 % (1.7-12.7); Neutrophils # 4.2 10*3/uL (1.4-7.4); Neutrophils % 70.4 % (38.7-73.9); Platelet Count 171 T/CUMM (130-400); Red Blood Count 3.22 MC/CUMM (3.8-5.5); Red Cell Distribution Width 19.9 % (9.3-17.3); White Blood Count 5.9 T/CUMM (4-12)
[2017-07-30 08:29] LABS: INR 1.1; PT Patient Result 11.4 SECS
[2017-07-30] MEDS: GABAPENTIN 100 MG CAPSULE PO SCH (08:52)
[2017-07-30] MEDS: DILTIAZEM CD 120 MG CAPSULE PO SCH (08:52)
[2017-07-30] MEDS: PANTOPRAZOLE 40 MG TABLET PO SCH (08:52)
[2017-07-30] MEDS: ISOSORBIDE DINITRATE 20 MG TABLET PO SCH ×2 (08:52→15:38)
[2017-07-30 17:19] VITALS: BP 137/68
== END 2017-07-30 17:57 | disposition swing bed (61) | DRG 683 ==
LOC: EDUNIT# → N.ED 19:33 → SUATTDRO 22:56 → N.EDINP 22:56 → N.5E 23:39
PROVIDERS: ADMIT Internal Medicine Nephrology; ATTEND Internal Medicine

== ENCOUNTER 2018-08-16 09:48 | Inpatient (IN) ==
[2018-08-16] MEDS ORDERED: CLINDAMYCIN INJ 900 MG in PREMIX 1 EACH IV STA (10:12)
[2018-08-16 10:36] LABS: Apearance,Urine CLEAR (Clear); Bacteria,Urine Occasional /HPF (Few); Bilirubin,Urine Negative (Negative); Blood, Urine Small mg/dL (Negative); Glucose,Urine (UA) Negative (Negative); Ketones,Urine Negative (Negative); Mucus,Urine Occasional /LPF (Occasional); Nitrite,Urine Positive (Negative); Protein,Urine 30 MG/DL; RBC,Urine 10 /HPF (0-4); Squamous Epithelial Cell,Urine Occasional /HPF (0-10); Urine Color Straw (Yellow); Urine Specific Gravity 1.006 (1.001-1.035); Urine Urobilinogen < 2.0 EU/DL (0.2-1.0); WBC,Urine 50 /HPF (0-6)
[2018-08-16 11:02] LABS: Basophils % 0.3 % (0.0-0.8); Eosinophils # 0.1 10*3/uL (0.0-0.87); Eosinophils % 1.2 % (0.00-10.9); Hematocrit 27.7 VOL% (35.7-47.0); Hemoglobin 8.6 GM/DL (12.0-16.0); Immature Granulocytes % 0.3 %; Immature Granulocytes Absolute 0.02 #; Lymphocytes # 1.1 10*3/uL (1.4-4.0); Lymphocytes % 18.9 % (21.3-54.2); Mean Corpuscular Hemoglobin 30 PG (27-34); Mean Corpuscular Volume 94.9 FL (87-102); Mean Platelet Volume 10.5 FL (9.6-12.0); Monocytes # 0.5 10*3/uL (0.11-0.8); Monocytes % 7.8 % (1.7-12.7); Neutrophils # 4.2 10*3/uL (1.4-7.4); Neutrophils % 71.5 % (38.7-73.9); Platelet Count 222 T/CUMM (130-400); Red Blood Count 2.92 MC/CUMM (3.8-5.5); Red Cell Distribution Width 14.9 % (9.3-17.3); White Blood Count 5.9 T/CUMM (4-12)
[2018-08-16 11:09] LABS: PT Patient Result 10.4 SECS; Partial Thromboplastin Time 30.2 SECS (0-40)
[2018-08-16 11:16] LABS: Ammonia 16 UMOL/L (11-32)
[2018-08-16 11:24] LABS: Alanine Aminotransferase 23 U/L (13-56); Albumin 3.1 G/DL (3.4-5.0); Alkaline Phosphatase 132 U/L (45-117); Aspartate Amino Transferase 21 U/L (0-37); Blood Urea Nitrogen 29 MG/DL (7-18); Calcium 9.4 MG/DL (8.5-10.1); Glucose 141 MG/DL (74-106); Osmolality,Calculated 282.7 MOS/KG (273-304); Potassium 3.8 MMOL/L (3.5-5.1); Sodium 138 MMOL/L (136-145); Total Protein 7.6 G/DL (6.4-8.3)
[2018-08-16 11:26] LABS: Troponin I 0.054 NG/ML (0.00-0.045)
[2018-08-16] MEDS ORDERED: ONDANSETRON 4 MG/2 ML VIAL IV PRN (13:20)
[2018-08-16] MEDS: ISOSORBIDE DINITRATE 20 MG TABLET PO SCH ×2 (15:28→20:48)
[2018-08-16] MEDS ORDERED: GLUCAGON 1 MG VIAL IM PRN (16:13)
[2018-08-16] MEDS ORDERED: DEXTROSE 50% 25 GM/50 ML SYRINGE IV PRN (16:13)
[2018-08-16] MEDS: CLINDAMYCIN INJ 900 MG in PREMIX 1 EACH IV SCH ×2 (17:31→23:33)
[2018-08-16] MEDS: FUROSEMIDE 20 MG TABLET PO SCH (20:48)
[2018-08-16] MEDS: GABAPENTIN 100 MG CAPSULE PO SCH (20:48)
[2018-08-16] MEDS: DESITIN 4OZ/NYSTATIN 15 GRAM MIXTURE PASTE TOP SCH (20:52)
[2018-08-17] MEDS: CLINDAMYCIN INJ 900 MG in PREMIX 1 EACH IV SCH (06:00)
[2018-08-17 07:12] LABS: Basophils % 0.4 % (0.0-0.8); Eosinophils # 0.1 10*3/uL (0.0-0.87); Eosinophils % 1.9 % (0.00-10.9); Hemoglobin 7.2 GM/DL (12.0-16.0); Immature Granulocytes % 0.6 %; Immature Granulocytes Absolute 0.03 #; Lymphocytes # 1.2 10*3/uL (1.4-4.0); Lymphocytes % 23.5 % (21.3-54.2); Mean Corpuscular HGB Conc 31.3 GM/DL (32-36); Mean Corpuscular Hemoglobin 30 PG (27-34); Mean Platelet Volume 10.4 FL (9.6-12.0); Monocytes # 0.5 10*3/uL (0.11-0.8); Monocytes % 10.5 % (1.7-12.7); Neutrophils # 3.3 10*3/uL (1.4-7.4); Neutrophils % 63.1 % (38.7-73.9); Platelet Count 190 T/CUMM (130-400); Red Blood Count 2.42 MC/CUMM (3.8-5.5); Red Cell Distribution Width 15.1 % (9.3-17.3); White Blood Count 5.2 T/CUMM (4-12)
[2018-08-17 07:32] LABS: Blood Urea Nitrogen 31 MG/DL (7-18); Calcium 8.6 MG/DL (8.5-10.1); Glucose 135 MG/DL (74-106); Osmolality,Calculated 287.4 MOS/KG (273-304); Potassium 3.6 MMOL/L (3.5-5.1); Sodium 140 MMOL/L (136-145)
[2018-08-17 07:33] LABS: Troponin I 0.048 NG/ML (0.00-0.045)
[2018-08-17] MEDS ORDERED: PANTOPRAZOLE 40 MG TABLET PO SCH (09:00)
[2018-08-17] MEDS: ROSUVASTATIN 10 MG TABLET PO SCH (09:37)
[2018-08-17] MEDS: DILTIAZEM CD 120 MG CAPSULE PO SCH ×2 (09:37→15:37)
[2018-08-17] MEDS: FUROSEMIDE 20 MG TABLET PO SCH ×2 (09:38→21:37)
[2018-08-17] MEDS: ISOSORBIDE DINITRATE 20 MG TABLET PO SCH ×3 (09:38→22:00)
[2018-08-17] MEDS: GABAPENTIN 100 MG CAPSULE PO SCH ×2 (09:39→21:36)
[2018-08-17] MEDS: DESITIN 4OZ/NYSTATIN 15 GRAM MIXTURE PASTE TOP SCH ×2 (09:39→21:38)
[2018-08-17] MEDS: PANTOPRAZOLE 40 MG TABLET PO SCH (09:39)
[2018-08-17] MEDS ORDERED: ENOXAPARIN 40 MG/0.4 ML SYRINGE ONE (09:53)
[2018-08-17] MEDS: ENOXAPARIN 30 MG/0.3 ML SYRINGE SUBCUT SCH (09:57)
[2018-08-17] MEDS ORDERED: SODIUM CHLORIDE 0.9% 1,000 ML IV PRN (12:00)
[2018-08-17] MEDS ORDERED: fentaNYL 100 MCG/2 ML VIAL ONE (12:47)
[2018-08-17] MEDS ORDERED: PROPOFOL 200 MG/20 ML VIAL IV ONE (12:49)
[2018-08-17] MEDS ORDERED: SEVOFLURANE 1 UNIT/15 MINUTE INH ONE (12:50)
[2018-08-17] MEDS ORDERED: ONDANSETRON 4 MG/2 ML VIAL IV PRN (12:57)
[2018-08-17] MEDS: HYDROmorphone 2 MG/1 ML VIAL IV PRN ×2 (13:00→13:08)
[2018-08-17] MEDS ORDERED: VANCOMYCIN INJ 1,000 MG in SODIUM CHLORIDE 0.9% 250 ML IV PRN (13:26)
[2018-08-17] MEDS: PIPERACILLIN/TAZOBACTAM 3,375 MG in SODIUM CHLORIDE 0.9% 100 ML IV SCH ×2 (13:44→21:38)
[2018-08-17] MEDS ORDERED: VANCOMYCIN INJ 1,000 MG in SODIUM CHLORIDE 0.9% 250 ML IV ONE (16:00)
[2018-08-18] MEDS: traMADol 50 MG TABLET PO PRN (00:30)
[2018-08-18] MEDS: PIPERACILLIN/TAZOBACTAM 3,375 MG in SODIUM CHLORIDE 0.9% 100 ML IV SCH ×3 (06:45→21:00)
[2018-08-18 07:49] LABS: Basophils % 0.3 % (0.0-0.8); Eosinophils # 0.2 10*3/uL (0.0-0.87); Eosinophils % 2.7 % (0.00-10.9); Hematocrit 32.7 VOL% (35.7-47.0); Hemoglobin 10.2 GM/DL (12.0-16.0); Immature Granulocytes % 0.5 %; Immature Granulocytes Absolute 0.03 #; Lymphocytes # 1.6 10*3/uL (1.4-4.0); Lymphocytes % 25.2 % (21.3-54.2); Mean Corpuscular HGB Conc 31.2 GM/DL (32-36); Mean Corpuscular Hemoglobin 29 PG (27-34); Mean Corpuscular Volume 94.2 FL (87-102); Mean Platelet Volume 10.1 FL (9.6-12.0); Monocytes # 0.7 10*3/uL (0.11-0.8); Monocytes % 10.8 % (1.7-12.7); Neutrophils # 3.8 10*3/uL (1.4-7.4); Neutrophils % 60.5 % (38.7-73.9); Platelet Count 211 T/CUMM (130-400); Red Blood Count 3.47 MC/CUMM (3.8-5.5); Red Cell Distribution Width 15.8 % (9.3-17.3); White Blood Count 6.2 T/CUMM (4-12)
[2018-08-18 08:51] LABS: Calcium 9.4 MG/DL (8.5-10.1); Osmolality,Calculated 289.1 MOS/KG (273-304); Potassium 4.3 MMOL/L (3.5-5.1)
[2018-08-18] MEDS: PANTOPRAZOLE 40 MG TABLET PO SCH (08:56)
[2018-08-18] MEDS: ISOSORBIDE DINITRATE 20 MG TABLET PO SCH ×3 (08:56→21:18)
[2018-08-18] MEDS: ROSUVASTATIN 10 MG TABLET PO SCH (08:56)
[2018-08-18] MEDS: DILTIAZEM CD 120 MG CAPSULE PO SCH (08:57)
[2018-08-18] MEDS: FUROSEMIDE 20 MG TABLET PO SCH ×2 (08:57→21:18)
[2018-08-18] MEDS: GABAPENTIN 100 MG CAPSULE PO SCH ×2 (08:58→21:18)
[2018-08-18] MEDS: DESITIN 4OZ/NYSTATIN 15 GRAM MIXTURE PASTE TOP SCH ×2 (08:58→21:28)
[2018-08-18] MEDS: ENOXAPARIN 30 MG/0.3 ML SYRINGE SUBCUT SCH (08:59)
[2018-08-19] MEDS ORDERED: diphenhydrAMINE CAP 25 MG CAPSULE PO PRN (00:14)
[2018-08-19] MEDS ORDERED: ACETAMINOPHEN 500 MG TABLET PO PRN (00:15)
[2018-08-19 04:34] LABS: Basophils % 0.4 % (0.0-0.8); Eosinophils # 0.2 10*3/uL (0.0-0.87); Eosinophils % 3.8 % (0.00-10.9); Hematocrit 27.5 VOL% (35.7-47.0); Hemoglobin 8.6 GM/DL (12.0-16.0); Immature Granulocytes % 0.4 %; Immature Granulocytes Absolute 0.02 #; Lymphocytes # 1.5 10*3/uL (1.4-4.0); Lymphocytes % 27.3 % (21.3-54.2); Mean Corpuscular HGB Conc 31.3 GM/DL (32-36); Mean Corpuscular Hemoglobin 30 PG (27-34); Mean Corpuscular Volume 94.8 FL (87-102); Mean Platelet Volume 10.1 FL (9.6-12.0); Monocytes # 0.6 10*3/uL (0.11-0.8); Monocytes % 9.9 % (1.7-12.7); Neutrophils # 3.2 10*3/uL (1.4-7.4); Neutrophils % 58.2 % (38.7-73.9); Platelet Count 205 T/CUMM (130-400); Red Cell Distribution Width 15.6 % (9.3-17.3); White Blood Count 5.5 T/CUMM (4-12)
[2018-08-19 04:40] LABS: Calcium 9.2 MG/DL (8.5-10.1); Osmolality,Calculated 288.1 MOS/KG (273-304); Potassium 3.7 MMOL/L (3.5-5.1)
[2018-08-19] MEDS: PIPERACILLIN/TAZOBACTAM 3,375 MG in SODIUM CHLORIDE 0.9% 100 ML IV SCH ×3 (05:50→21:18)
[2018-08-19] MEDS ORDERED: VANCOMYCIN INJ 1,000 MG in SODIUM CHLORIDE 0.9% 250 ML IV ONE (09:00)
[2018-08-19] MEDS: ENOXAPARIN 30 MG/0.3 ML SYRINGE SUBCUT SCH (09:17)
[2018-08-19] MEDS: FUROSEMIDE 20 MG TABLET PO SCH ×2 (09:18→21:17)
[2018-08-19] MEDS: GABAPENTIN 100 MG CAPSULE PO SCH ×2 (09:18→21:18)
[2018-08-19] MEDS: ROSUVASTATIN 10 MG TABLET PO SCH (09:18)
[2018-08-19] MEDS: ISOSORBIDE DINITRATE 20 MG TABLET PO SCH ×3 (09:18→21:17)
[2018-08-19] MEDS: DILTIAZEM CD 120 MG CAPSULE PO SCH (09:18)
[2018-08-19] MEDS: PANTOPRAZOLE 40 MG TABLET PO SCH (09:19)
[2018-08-19] MEDS: DESITIN 4OZ/NYSTATIN 15 GRAM MIXTURE PASTE TOP SCH ×2 (10:30→21:18)
[2018-08-19] MEDS: traMADol 50 MG TABLET PO PRN (21:17)
[2018-08-20 04:28] LABS: Basophils % 0.4 % (0.0-0.8); Eosinophils # 0.2 10*3/uL (0.0-0.87); Eosinophils % 3.8 % (0.00-10.9); Hematocrit 28.2 VOL% (35.7-47.0); Hemoglobin 8.8 GM/DL (12.0-16.0); Immature Granulocytes % 0.2 %; Immature Granulocytes Absolute 0.01 #; Lymphocytes # 1.6 10*3/uL (1.4-4.0); Lymphocytes % 31.6 % (21.3-54.2); Mean Corpuscular HGB Conc 31.2 GM/DL (32-36); Mean Corpuscular Hemoglobin 30 PG (27-34); Mean Corpuscular Volume 94.9 FL (87-102); Mean Platelet Volume 10.2 FL (9.6-12.0); Monocytes # 0.5 10*3/uL (0.11-0.8); Monocytes % 10.3 % (1.7-12.7); Neutrophils # 2.7 10*3/uL (1.4-7.4); Neutrophils % 53.7 % (38.7-73.9); Platelet Count 206 T/CUMM (130-400); Red Blood Count 2.97 MC/CUMM (3.8-5.5); Red Cell Distribution Width 14.9 % (9.3-17.3); White Blood Count 5.1 T/CUMM (4-12)
[2018-08-20 04:42] LABS: Calcium 9.3 MG/DL (8.5-10.1); Osmolality,Calculated 285.3 MOS/KG (273-304); Potassium 3.6 MMOL/L (3.5-5.1)
[2018-08-20] MEDS: PIPERACILLIN/TAZOBACTAM 3,375 MG in SODIUM CHLORIDE 0.9% 100 ML IV SCH ×3 (05:45→21:07)
[2018-08-20] MEDS: ROSUVASTATIN 10 MG TABLET PO SCH (09:48)
[2018-08-20] MEDS: DILTIAZEM CD 120 MG CAPSULE PO SCH (09:48)
[2018-08-20] MEDS: FUROSEMIDE 20 MG TABLET PO SCH ×2 (09:48→21:03)
[2018-08-20] MEDS: PANTOPRAZOLE 40 MG TABLET PO SCH (09:48)
[2018-08-20] MEDS: ISOSORBIDE DINITRATE 20 MG TABLET PO SCH ×3 (09:48→21:04)
[2018-08-20] MEDS: traMADol 50 MG TABLET PO PRN (09:48)
[2018-08-20] MEDS: GABAPENTIN 100 MG CAPSULE PO SCH ×2 (09:48→21:03)
[2018-08-20] MEDS: ENOXAPARIN 30 MG/0.3 ML SYRINGE SUBCUT SCH (09:49)
[2018-08-20] MEDS: DESITIN 4OZ/NYSTATIN 15 GRAM MIXTURE PASTE TOP SCH ×2 (09:49→21:03)
[2018-08-20] MEDS ORDERED: VANCOMYCIN INJ 1,000 MG in SODIUM CHLORIDE 0.9% 250 ML IV ONE (11:00)
[2018-08-21 03:46] LABS: Basophils % 0.4 % (0.0-0.8); Eosinophils # 0.2 10*3/uL (0.0-0.87); Eosinophils % 3.4 % (0.00-10.9); Hematocrit 30.2 VOL% (35.7-47.0); Hemoglobin 9.2 GM/DL (12.0-16.0); Immature Granulocytes % 0.4 %; Immature Granulocytes Absolute 0.02 #; Lymphocytes # 1.4 10*3/uL (1.4-4.0); Lymphocytes % 28.6 % (21.3-54.2); Mean Corpuscular HGB Conc 30.5 GM/DL (32-36); Mean Corpuscular Hemoglobin 29 PG (27-34); Mean Platelet Volume 9.5 FL (9.6-12.0); Monocytes # 0.5 10*3/uL (0.11-0.8); Monocytes % 9.3 % (1.7-12.7); Neutrophils # 2.9 10*3/uL (1.4-7.4); Neutrophils % 57.9 % (38.7-73.9); Platelet Count 213 T/CUMM (130-400); Red Blood Count 3.18 MC/CUMM (3.8-5.5); Red Cell Distribution Width 14.6 % (9.3-17.3); White Blood Count 4.9 T/CUMM (4-12)
[2018-08-21 04:02] LABS: Calcium 9.8 MG/DL (8.5-10.1); Osmolality,Calculated 287.1 MOS/KG (273-304); Potassium 3.5 MMOL/L (3.5-5.1)
[2018-08-21] MEDS: PIPERACILLIN/TAZOBACTAM 3,375 MG in SODIUM CHLORIDE 0.9% 100 ML IV SCH ×3 (04:45→22:12)
[2018-08-21] MEDS: ROSUVASTATIN 10 MG TABLET PO SCH (09:00)
[2018-08-21] MEDS: ENOXAPARIN 30 MG/0.3 ML SYRINGE SUBCUT SCH (09:00)
[2018-08-21] MEDS: traMADol 50 MG TABLET PO PRN (09:01)
[2018-08-21] MEDS: ISOSORBIDE DINITRATE 20 MG TABLET PO SCH ×3 (09:01→22:17)
[2018-08-21] MEDS: GABAPENTIN 100 MG CAPSULE PO SCH ×2 (09:01→22:17)
[2018-08-21] MEDS: FUROSEMIDE 20 MG TABLET PO SCH ×2 (09:02→22:17)
[2018-08-21] MEDS: DILTIAZEM CD 120 MG CAPSULE PO SCH (09:02)
[2018-08-21] MEDS: DESITIN 4OZ/NYSTATIN 15 GRAM MIXTURE PASTE TOP SCH ×2 (09:02→22:17)
[2018-08-21] MEDS: PANTOPRAZOLE 40 MG TABLET PO SCH (09:07)
[2018-08-21] MEDS ORDERED: BISACODYL 5 MG TABLET PO ONE (16:02)
[2018-08-22] MEDS: PIPERACILLIN/TAZOBACTAM 3,375 MG in SODIUM CHLORIDE 0.9% 100 ML IV SCH ×2 (05:02→15:42)
[2018-08-22] MEDS: ENOXAPARIN 30 MG/0.3 ML SYRINGE SUBCUT SCH ×2 (08:50→12:05)
[2018-08-22] MEDS: DILTIAZEM CD 120 MG CAPSULE PO SCH (08:52)
[2018-08-22] MEDS: ISOSORBIDE DINITRATE 20 MG TABLET PO SCH ×2 (08:54→15:43)
[2018-08-22] MEDS: ROSUVASTATIN 10 MG TABLET PO SCH (08:56)
[2018-08-22] MEDS: GABAPENTIN 100 MG CAPSULE PO SCH (08:56)
[2018-08-22] MEDS: DESITIN 4OZ/NYSTATIN 15 GRAM MIXTURE PASTE TOP SCH (08:59)
[2018-08-22] MEDS: PANTOPRAZOLE 40 MG TABLET PO SCH (09:01)
[2018-08-22] MEDS: FUROSEMIDE 20 MG TABLET PO SCH (09:01)
[2018-08-22] MEDS ORDERED: VANCOMYCIN INJ 1,000 MG in SODIUM CHLORIDE 0.9% 250 ML IV ONE (09:30)
[2018-08-22 12:43] VITALS: BP 136/75
[2018-08-24] MEDS ORDERED: VANCOMYCIN INJ 1,000 MG in SODIUM CHLORIDE 0.9% 250 ML IV SCH (09:00)
== END 2018-08-22 18:38 | disposition swing bed (61) | DRG 605 ==
LOC: EDBD → EDUNIT# → N.ED 09:48 → N.EDINP 13:19 → N.TELES 13:48
PROVIDERS: ADMIT Family Medicine; ATTEND Family Medicine

== ENCOUNTER 2018-09-05 14:43 | Inpatient (IN) ==
[2018-09-05] MEDS ORDERED: ONDANSETRON 4 MG/2 ML VIAL IV STA (15:49)
[2018-09-05] MEDS ORDERED: HYDROmorphone 2 MG/1 ML VIAL IV STA (15:49)
[2018-09-05] MEDS ORDERED: NALOXONE 0.4 MG/ML VIAL IV PRN (16:01)
[2018-09-05] MEDS ORDERED: ACETAMINOPHEN 325 MG TABLET PO PRN (16:01)
[2018-09-05] MEDS ORDERED: ONDANSETRON 4 MG/2 ML VIAL IV PRN (16:01)
[2018-09-05 17:16] LABS: Basophils % 0.4 % (0.0-0.8); Eosinophils # 0.1 10*3/uL (0.0-0.87); Eosinophils % 1.3 % (0.00-10.9); Hematocrit 30.2 VOL% (35.7-47.0); Hemoglobin 9.4 GM/DL (12.0-16.0); Immature Granulocytes % 0.9 %; Immature Granulocytes Absolute 0.05 #; Lymphocytes # 1.1 10*3/uL (1.4-4.0); Lymphocytes % 18.8 % (21.3-54.2); Mean Corpuscular HGB Conc 31.1 GM/DL (32-36); Mean Corpuscular Hemoglobin 29 PG (27-34); Mean Corpuscular Volume 94.1 FL (87-102); Mean Platelet Volume 10.1 FL (9.6-12.0); Monocytes # 0.4 10*3/uL (0.11-0.8); Monocytes % 7.9 % (1.7-12.7); Neutrophils % 70.7 % (38.7-73.9); Platelet Count 156 T/CUMM (130-400); Red Blood Count 3.21 MC/CUMM (3.8-5.5); Red Cell Distribution Width 14.7 % (9.3-17.3); White Blood Count 5.6 T/CUMM (4-12)
[2018-09-05 17:26] LABS: PT Patient Result 10.4 SECS; Partial Thromboplastin Time 31.5 SECS (0-40)
[2018-09-05 17:34] LABS: Alanine Aminotransferase 21 U/L (13-56); Albumin 2.7 G/DL (3.4-5.0); Alkaline Phosphatase 102 U/L (45-117); Aspartate Amino Transferase 26 U/L (0-37); Bilirubin,Total < 0.39 MG/DL (0.2-1.0); Blood Urea Nitrogen 42 MG/DL (7-18); Glucose 112 MG/DL (74-106); Osmolality,Calculated 281.1 MOS/KG (273-304); Potassium 4.8 MMOL/L (3.5-5.1); Sodium 135 MMOL/L (136-145); Total Protein 6.8 G/DL (6.4-8.3)
[2018-09-05] MEDS: SODIUM CHLORIDE 0.45% 1,000 ML IV SCH (19:18)
[2018-09-05] MEDS: DOCUSATE SODIUM 100 MG CAPSULE PO SCH (20:58)
[2018-09-05] MEDS: ENOXAPARIN 30 MG/0.3 ML SYRINGE SUBCUT SCH (20:58)
[2018-09-05 22:37] LABS: Apearance,Urine CLOUDY (Clear); Bacteria,Urine Occasional /HPF (Few); Bilirubin,Urine Negative (Negative); Blood, Urine Negative (Negative); Glucose,Urine (UA) Negative (Negative); Ketones,Urine Negative (Negative); Nitrite,Urine Negative (Negative); Protein,Urine 30 MG/DL; RBC,Urine 24 /HPF (0-4); Squamous Epithelial Cell,Urine Occasional /HPF (0-10); Urine Color Yellow (Yellow); Urine Specific Gravity 1.012 (1.001-1.035); Urine Urobilinogen < 2.0 EU/DL (0.2-1.0); WBC,Urine 113 /HPF (0-6)
[2018-09-06 05:46] LABS: Calcium 9.1 MG/DL (8.5-10.1); Osmolality,Calculated 284.7 MOS/KG (273-304); Potassium 4.8 MMOL/L (3.5-5.1)
[2018-09-06] MEDS ORDERED: cefTRIAXone 1,000 MG in SYRINGE 1 EACH IV SCH (07:30)
[2018-09-06] MEDS ORDERED: hydrOXYzine HCL 25 MG TABLET PO PRN (08:47)
[2018-09-06] MEDS: ISOSORBIDE DINITRATE 20 MG TABLET PO SCH ×3 (09:13→21:50)
[2018-09-06] MEDS: GABAPENTIN 100 MG CAPSULE PO SCH ×2 (09:13→21:50)
[2018-09-06] MEDS: FUROSEMIDE 40 MG TABLET PO SCH ×2 (09:13→21:50)
[2018-09-06] MEDS: PANTOPRAZOLE 40 MG TABLET PO SCH (09:13)
[2018-09-06] MEDS: LEVOFLOXACIN INJ 250 MG in PREMIX 1 EACH IV SCH (09:14)
[2018-09-06] MEDS: DILTIAZEM CD 120 MG CAPSULE PO SCH (09:20)
[2018-09-06] MEDS: DOCUSATE SODIUM 100 MG CAPSULE PO SCH ×2 (11:43→21:50)
[2018-09-06] MEDS: ROSUVASTATIN 10 MG TABLET PO SCH (11:43)
[2018-09-06] MEDS ORDERED: ceFAZolin 1,000 MG VIAL ONE (14:09)
[2018-09-06] MEDS ORDERED: ONDANSETRON 4 MG/2 ML VIAL IV PRN (14:17)
[2018-09-06] MEDS ORDERED: SEVOFLURANE 1 UNIT/15 MINUTE INH ONE (15:03)
[2018-09-06] MEDS ORDERED: NALOXONE 0.4 MG/ML VIAL ONE (15:03)
[2018-09-06] MEDS ORDERED: fentaNYL 100 MCG/2 ML VIAL ONE (15:03)
[2018-09-06] MEDS ORDERED: PHENYLEPHRINE 1 MG/10 ML SYRINGE IV ONE (15:04)
[2018-09-06] MEDS ORDERED: ONDANSETRON 4 MG/2 ML VIAL ONE ×2 (15:04→15:13)
[2018-09-06] MEDS ORDERED: GLYCOPYRROLATE 0.4 MG/2 ML VIAL ONE (15:04)
[2018-09-06] MEDS ORDERED: ACETAMINOPHEN 1,000 MG/100 ML VIAL IV ONE (15:04)
[2018-09-06] MEDS ORDERED: DEXAMETHASONE 10 MG/1 ML VIAL ONE (15:04)
[2018-09-06] MEDS ORDERED: ETOMIDATE 40 MG/20 ML VIAL IV ONE (15:04)
[2018-09-06] MEDS ORDERED: ROCURONIUM 100 MG/10 ML VIAL IV ONE (15:05)
[2018-09-06] MEDS ORDERED: NEOSTIGMINE 10 MG/10 ML VIAL ONE (15:05)
[2018-09-06] MEDS ORDERED: HYDROmorphone 2 MG/1 ML VIAL ONE (15:12)
[2018-09-06] MEDS: HYDROmorphone 2 MG/1 ML VIAL IV PRN ×2 (15:16→15:24)
[2018-09-06] MEDS: SODIUM CHLORIDE 0.45% 1,000 ML IV SCH (16:34)
[2018-09-06] MEDS: ENOXAPARIN 30 MG/0.3 ML SYRINGE SUBCUT SCH (21:50)
[2018-09-07] MEDS: traMADol 50 MG TABLET PO PRN ×2 (00:45→13:48)
[2018-09-07 05:12] LABS: Basophils % 0.2 % (0.0-0.8); Hematocrit 29.3 VOL% (35.7-47.0); Hemoglobin 9.1 GM/DL (12.0-16.0); Immature Granulocytes % 0.7 %; Immature Granulocytes Absolute 0.03 #; Lymphocytes # 0.8 10*3/uL (1.4-4.0); Lymphocytes % 17.2 % (21.3-54.2); Mean Corpuscular HGB Conc 31.1 GM/DL (32-36); Mean Corpuscular Hemoglobin 30 PG (27-34); Mean Corpuscular Volume 95.8 FL (87-102); Mean Platelet Volume 10.4 FL (9.6-12.0); Monocytes # 0.2 10*3/uL (0.11-0.8); Monocytes % 3.6 % (1.7-12.7); Neutrophils # 3.5 10*3/uL (1.4-7.4); Neutrophils % 78.3 % (38.7-73.9); Platelet Count 154 T/CUMM (130-400); Red Blood Count 3.06 MC/CUMM (3.8-5.5); White Blood Count 4.4 T/CUMM (4-12)
[2018-09-07 05:23] LABS: Calcium 9.2 MG/DL (8.5-10.1); Osmolality,Calculated 292.8 MOS/KG (273-304); Potassium 4.8 MMOL/L (3.5-5.1)
[2018-09-07] MEDS ORDERED: DOCUSATE SODIUM 100 MG CAPSULE PO SCH (09:00)
[2018-09-07] MEDS: ROSUVASTATIN 10 MG TABLET PO SCH (10:35)
[2018-09-07] MEDS: FUROSEMIDE 40 MG TABLET PO SCH ×2 (10:35→21:35)
[2018-09-07] MEDS: DOCUSATE SODIUM 100 MG CAPSULE PO SCH ×2 (10:35→21:35)
[2018-09-07] MEDS: PANTOPRAZOLE 40 MG TABLET PO SCH (10:35)
[2018-09-07] MEDS: DILTIAZEM CD 120 MG CAPSULE PO SCH (10:35)
[2018-09-07] MEDS: GABAPENTIN 100 MG CAPSULE PO SCH ×2 (10:35→21:35)
[2018-09-07] MEDS: ISOSORBIDE DINITRATE 20 MG TABLET PO SCH ×3 (10:36→21:35)
[2018-09-07] MEDS: [UNRECOGNIZED DRUG - OTHER] PO SCH (10:37)
[2018-09-07] MEDS: NYSTATIN CREAM 15 GM TUBE TOP SCH ×2 (13:36→21:35)
[2018-09-07] MEDS: FLUCONAZOLE 200 MG TABLET PO SCH (13:38)
[2018-09-07] MEDS: SODIUM CHLORIDE 0.45% 1,000 ML IV SCH (16:19)
[2018-09-07] MEDS: ENOXAPARIN 30 MG/0.3 ML SYRINGE SUBCUT SCH (21:35)
[2018-09-08] MEDS: traMADol 50 MG TABLET PO PRN ×2 (00:40→10:54)
[2018-09-08 06:01] LABS: Basophils % 0.3 % (0.0-0.8); Eosinophils % 0.2 % (0.00-10.9); Hemoglobin 9.7 GM/DL (12.0-16.0); Immature Granulocytes % 0.7 %; Immature Granulocytes Absolute 0.04 #; Lymphocytes # 1.1 10*3/uL (1.4-4.0); Mean Corpuscular HGB Conc 31.3 GM/DL (32-36); Mean Corpuscular Hemoglobin 29 PG (27-34); Mean Corpuscular Volume 93.9 FL (87-102); Mean Platelet Volume 10.1 FL (9.6-12.0); Monocytes # 0.5 10*3/uL (0.11-0.8); Monocytes % 7.9 % (1.7-12.7); Neutrophils # 4.3 10*3/uL (1.4-7.4); Neutrophils % 71.9 % (38.7-73.9); Platelet Count 164 T/CUMM (130-400); Red Cell Distribution Width 15.1 % (9.3-17.3); White Blood Count 5.9 T/CUMM (4-12)
[2018-09-08 06:42] LABS: Calcium 9.7 MG/DL (8.5-10.1); Osmolality,Calculated 295.5 MOS/KG (273-304); Potassium 4.1 MMOL/L (3.5-5.1)
[2018-09-08] MEDS: [UNRECOGNIZED DRUG - OTHER] PO SCH (10:41)
[2018-09-08] MEDS: FLUCONAZOLE 200 MG TABLET PO SCH (10:49)
[2018-09-08] MEDS: DILTIAZEM CD 120 MG CAPSULE PO SCH (10:49)
[2018-09-08] MEDS: GABAPENTIN 100 MG CAPSULE PO SCH ×2 (10:49→21:15)
[2018-09-08] MEDS: ISOSORBIDE DINITRATE 20 MG TABLET PO SCH ×3 (10:49→21:15)
[2018-09-08] MEDS: FUROSEMIDE 40 MG TABLET PO SCH ×2 (10:52→21:15)
[2018-09-08] MEDS: PANTOPRAZOLE 40 MG TABLET PO SCH (10:52)
[2018-09-08] MEDS: ROSUVASTATIN 10 MG TABLET PO SCH (10:53)
[2018-09-08] MEDS: DOCUSATE SODIUM 100 MG CAPSULE PO SCH ×2 (10:54→21:15)
[2018-09-08] MEDS: LEVOFLOXACIN INJ 250 MG in PREMIX 1 EACH IV SCH (10:57)
[2018-09-08] MEDS: NYSTATIN CREAM 15 GM TUBE TOP SCH ×2 (10:58→21:15)
[2018-09-08] MEDS: LINEZOLID 600 MG TABLET PO SCH (21:15)
[2018-09-08] MEDS: ENOXAPARIN 30 MG/0.3 ML SYRINGE SUBCUT SCH (21:15)
[2018-09-08] MEDS: SODIUM CHLORIDE 0.45% 1,000 ML IV SCH (21:27)
[2018-09-09 08:09] LABS: Calcium 8.8 MG/DL (8.5-10.1); Osmolality,Calculated 290.8 MOS/KG (273-304); Potassium 3.9 MMOL/L (3.5-5.1); Uric Acid 12.1 MG/DL (2.6-6.0)
[2018-09-09] MEDS: MORPHINE 4 MG/1 ML VIAL IV PRN (08:42)
[2018-09-09] MEDS: FUROSEMIDE 40 MG TABLET PO SCH ×2 (09:47→21:54)
[2018-09-09] MEDS: DOCUSATE SODIUM 100 MG CAPSULE PO SCH ×2 (09:47→21:54)
[2018-09-09] MEDS: FLUCONAZOLE 200 MG TABLET PO SCH (09:49)
[2018-09-09] MEDS: DILTIAZEM CD 120 MG CAPSULE PO SCH (09:49)
[2018-09-09] MEDS: GABAPENTIN 100 MG CAPSULE PO SCH ×2 (09:50→21:54)
[2018-09-09] MEDS: ROSUVASTATIN 10 MG TABLET PO SCH (09:50)
[2018-09-09] MEDS: LINEZOLID 600 MG TABLET PO SCH ×2 (09:51→21:54)
[2018-09-09] MEDS: PANTOPRAZOLE 40 MG TABLET PO SCH (09:51)
[2018-09-09] MEDS: ISOSORBIDE DINITRATE 20 MG TABLET PO SCH ×3 (09:56→21:54)
[2018-09-09] MEDS: NYSTATIN CREAM 15 GM TUBE TOP SCH ×2 (09:57→21:55)
[2018-09-09] MEDS: [UNRECOGNIZED DRUG - OTHER] PO SCH (09:57)
[2018-09-09] MEDS: SODIUM CHLORIDE 0.45% 1,000 ML IV SCH (17:56)
[2018-09-09] MEDS: ENOXAPARIN 30 MG/0.3 ML SYRINGE SUBCUT SCH (21:54)
[2018-09-09] MEDS: DESITIN 4OZ/NYSTATIN 15 GRAM MIXTURE PASTE TOP SCH ×2 (21:57)
[2018-09-10] MEDS: SODIUM CHLORIDE 0.45% 1,000 ML IV SCH (02:25)
[2018-09-10] MEDS: [UNRECOGNIZED DRUG - OTHER] PO SCH (08:55)
[2018-09-10] MEDS: LINEZOLID 600 MG TABLET PO SCH (08:57)
[2018-09-10] MEDS: DOCUSATE SODIUM 100 MG CAPSULE PO SCH ×2 (08:57→20:48)
[2018-09-10] MEDS: ROSUVASTATIN 10 MG TABLET PO SCH (08:57)
[2018-09-10] MEDS: FEBUXOSTAT 80 MG TABLET PO SCH (08:57)
[2018-09-10] MEDS: DILTIAZEM CD 120 MG CAPSULE PO SCH (08:58)
[2018-09-10] MEDS: FUROSEMIDE 40 MG TABLET PO SCH ×2 (08:59→20:48)
[2018-09-10] MEDS: ISOSORBIDE DINITRATE 20 MG TABLET PO SCH ×3 (08:59→20:48)
[2018-09-10] MEDS: PANTOPRAZOLE 40 MG TABLET PO SCH (08:59)
[2018-09-10] MEDS: predniSONE 20 MG TABLET PO SCH (08:59)
[2018-09-10] MEDS: FLUCONAZOLE 200 MG TABLET PO SCH (08:59)
[2018-09-10] MEDS: GABAPENTIN 100 MG CAPSULE PO SCH ×2 (09:00→20:49)
[2018-09-10] MEDS: DESITIN 4OZ/NYSTATIN 15 GRAM MIXTURE PASTE TOP SCH ×2 (09:00→20:49)
[2018-09-10] MEDS: NYSTATIN CREAM 15 GM TUBE TOP SCH ×2 (09:00→20:48)
[2018-09-10] MEDS: MORPHINE 4 MG/1 ML VIAL IV PRN ×2 (10:18→14:19)
[2018-09-10] MEDS ORDERED: HYDROmorphone 2 MG/1 ML VIAL IV ONE (16:18)
[2018-09-10] MEDS ORDERED: methylPREDNISolone SOD SUC 125 MG/2 ML VIAL IV ONE (16:18)
[2018-09-10] MEDS ORDERED: HYDROmorphone 2 MG/1 ML VIAL IV PRN (16:42)
[2018-09-10] MEDS: ENOXAPARIN 30 MG/0.3 ML SYRINGE SUBCUT SCH (20:48)
[2018-09-10] MEDS: NITROFURANTOIN MACRO/MONO 100 MG CAPSULE PO SCH (20:48)
[2018-09-11] MEDS: ROSUVASTATIN 10 MG TABLET PO SCH (08:32)
[2018-09-11] MEDS: FUROSEMIDE 40 MG TABLET PO SCH ×2 (08:33→21:12)
[2018-09-11] MEDS: NITROFURANTOIN MACRO/MONO 100 MG CAPSULE PO SCH ×2 (08:34→21:12)
[2018-09-11] MEDS: ISOSORBIDE DINITRATE 20 MG TABLET PO SCH ×3 (08:34→21:12)
[2018-09-11] MEDS: PANTOPRAZOLE 40 MG TABLET PO SCH (08:34)
[2018-09-11] MEDS: DOCUSATE SODIUM 100 MG CAPSULE PO SCH ×2 (08:34→21:12)
[2018-09-11] MEDS: predniSONE 20 MG TABLET PO SCH (08:34)
[2018-09-11] MEDS: FEBUXOSTAT 80 MG TABLET PO SCH (08:35)
[2018-09-11] MEDS: DILTIAZEM CD 120 MG CAPSULE PO SCH (08:35)
[2018-09-11] MEDS: FLUCONAZOLE 200 MG TABLET PO SCH (08:35)
[2018-09-11] MEDS: GABAPENTIN 100 MG CAPSULE PO SCH ×2 (08:35→21:12)
[2018-09-11] MEDS: [UNRECOGNIZED DRUG - OTHER] PO SCH (08:36)
[2018-09-11] MEDS: DESITIN 4OZ/NYSTATIN 15 GRAM MIXTURE PASTE TOP SCH ×2 (08:36→21:13)
[2018-09-11] MEDS: NYSTATIN CREAM 15 GM TUBE TOP SCH ×2 (08:36→21:13)
[2018-09-11] MEDS: SODIUM CHLORIDE 0.45% 1,000 ML IV SCH (08:40)
[2018-09-11 10:08] LABS: Calcium 8.4 MG/DL (8.5-10.1); Osmolality,Calculated 285.5 MOS/KG (273-304)
[2018-09-11] MEDS: ENOXAPARIN 30 MG/0.3 ML SYRINGE SUBCUT SCH (21:12)
[2018-09-12] MEDS: [UNRECOGNIZED DRUG - OTHER] PO SCH (08:21)
[2018-09-12] MEDS: SODIUM CHLORIDE 0.45% 1,000 ML IV SCH (08:21)
[2018-09-12] MEDS: ROSUVASTATIN 10 MG TABLET PO SCH (08:30)
[2018-09-12] MEDS: FEBUXOSTAT 80 MG TABLET PO SCH (08:30)
[2018-09-12] MEDS: FLUCONAZOLE 200 MG TABLET PO SCH (08:30)
[2018-09-12] MEDS: PANTOPRAZOLE 40 MG TABLET PO SCH (08:30)
[2018-09-12] MEDS: DILTIAZEM CD 120 MG CAPSULE PO SCH (08:30)
[2018-09-12] MEDS: FUROSEMIDE 40 MG TABLET PO SCH (08:30)
[2018-09-12] MEDS: DOCUSATE SODIUM 100 MG CAPSULE PO SCH (08:30)
[2018-09-12] MEDS: NITROFURANTOIN MACRO/MONO 100 MG CAPSULE PO SCH (08:30)
[2018-09-12] MEDS: ISOSORBIDE DINITRATE 20 MG TABLET PO SCH ×2 (08:31→14:06)
[2018-09-12] MEDS: GABAPENTIN 100 MG CAPSULE PO SCH (08:31)
[2018-09-12] MEDS: predniSONE 20 MG TABLET PO SCH (08:31)
[2018-09-12] MEDS: DESITIN 4OZ/NYSTATIN 15 GRAM MIXTURE PASTE TOP SCH (08:31)
[2018-09-12] MEDS: NYSTATIN CREAM 15 GM TUBE TOP SCH (08:31)
[2018-09-12 11:43] VITALS: BP 127/70
[2018-09-12] MEDS ORDERED: BISACODYL 10 MG SUPP RECTAL PRN (12:00)
== END 2018-09-12 15:06 | DRG 481 ==
LOC: EDBD → EDUNIT# → N.ED 14:43 → N.EDINP 16:56 → N.2E 17:40 → N.3E 09-06 14:38
PROVIDERS: ADMIT Family Medicine; ATTEND Family Medicine

== ENCOUNTER 2018-09-25 23:51 | Inpatient (IN) ==
[2018-09-26] MEDS ORDERED: GLUCAGON 1 MG VIAL IM PRN (01:58)
[2018-09-26] MEDS ORDERED: DEXTROSE 50% 25 GM/50 ML VIAL IV PRN (01:58)
[2018-09-26] MEDS ORDERED: diphenhydrAMINE CAP 25 MG CAPSULE PO PRN (01:58)
[2018-09-26] MEDS ORDERED: BISACODYL 5 MG TABLET PO PRN (01:58)
[2018-09-26] MEDS ORDERED: ACETAMINOPHEN 325 MG TABLET PO PRN (01:58)
[2018-09-26] MEDS ORDERED: NICOTINE 21 MG/24 HR PATCH TRANSDERM PRN (01:58)
[2018-09-26] MEDS ORDERED: ONDANSETRON 4 MG/2 ML VIAL IV PRN (01:58)
[2018-09-26] MEDS: MORPHINE 4 MG/1 ML VIAL IV PRN (02:26)
[2018-09-26 02:28] LABS: Basophils % 0.3 % (0.0-0.8); Eosinophils # 0.1 10*3/uL (0.0-0.87); Hematocrit 34.2 VOL% (35.7-47.0); Hemoglobin 10.9 GM/DL (12.0-16.0); Immature Granulocytes % 0.5 %; Immature Granulocytes Absolute 0.03 #; Lymphocytes # 1.8 10*3/uL (1.4-4.0); Lymphocytes % 28.4 % (21.3-54.2); Mean Corpuscular HGB Conc 31.9 GM/DL (32-36); Mean Corpuscular Hemoglobin 30 PG (27-34); Mean Corpuscular Volume 93.7 FL (87-102); Mean Platelet Volume 11.2 FL (9.6-12.0); Monocytes # 0.5 10*3/uL (0.11-0.8); Monocytes % 8.5 % (1.7-12.7); Neutrophils # 3.8 10*3/uL (1.4-7.4); Neutrophils % 61.3 % (38.7-73.9); Platelet Count 231 T/CUMM (130-400); Red Blood Count 3.65 MC/CUMM (3.8-5.5); Red Cell Distribution Width 14.7 % (9.3-17.3); White Blood Count 6.3 T/CUMM (4-12)
[2018-09-26] MEDS: SODIUM CHLORIDE 0.9% 1,000 ML IV SCH ×2 (02:28→15:24)
[2018-09-26] MEDS ORDERED: hydrOXYzine HCL 25 MG TABLET PO PRN (02:35)
[2018-09-26 02:36] LABS: PT Patient Result 10.4 SECS
[2018-09-26 02:37] LABS: Apearance,Urine CLOUDY (Clear); Bilirubin,Urine Negative (Negative); Blood, Urine Moderate mg/dL (Negative); Glucose,Urine (UA) Negative (Negative); Ketones,Urine Negative (Negative); Nitrite,Urine Negative (Negative); Protein,Urine 100 MG/DL; RBC,Urine 188 /HPF (0-4); Squamous Epithelial Cell,Urine Few /HPF (0-10); Urine Urobilinogen < 2.0 EU/DL (0.2-1.0); WBC,Urine 1071 /HPF (0-6)
[2018-09-26 02:40] LABS: Urine Color Yellow (Yellow)
[2018-09-26 02:47] LABS: Albumin 2.7 G/DL (3.4-5.0); Bilirubin,Total 0.4 MG/DL (0.2-1.0); Calcium 9.9 MG/DL (8.5-10.1); Osmolality,Calculated 293.1 MOS/KG (273-304); Potassium 4.3 MMOL/L (3.5-5.1); Total Protein 6.9 G/DL (6.4-8.3)
[2018-09-26] MEDS: cefTRIAXone 1,000 MG in SYRINGE 1 EACH IV SCH (03:49)
[2018-09-26] MEDS: INSULIN REGULAR 100 UNIT/ML SUBCUT SCH ×4 (09:21→22:52)
[2018-09-26] MEDS: ENOXAPARIN 60 MG/0.6 ML SYRINGE SUBCUT SCH (09:21)
[2018-09-26] MEDS: ASPIRIN EC 81 MG TABLET PO SCH (09:22)
[2018-09-26] MEDS: DILTIAZEM CD 120 MG CAPSULE PO SCH (09:22)
[2018-09-26] MEDS: METOPROLOL TARTRATE 25 MG TABLET PO SCH ×2 (09:24→22:54)
[2018-09-26] MEDS: FUROSEMIDE 40 MG TABLET PO SCH ×2 (09:24→22:12)
[2018-09-26] MEDS: ISOSORBIDE DINITRATE 20 MG TABLET PO SCH ×3 (09:24→22:12)
[2018-09-26] MEDS: ROSUVASTATIN 10 MG TABLET PO SCH (09:24)
[2018-09-26] MEDS: PANTOPRAZOLE 40 MG TABLET PO SCH (09:25)
[2018-09-26] MEDS: GABAPENTIN 100 MG CAPSULE PO SCH ×2 (09:25→22:12)
[2018-09-26] MEDS: ZINC OXIDE PASTE 113 GM TUBE TOP SCH ×2 (15:07→21:00)
[2018-09-26] MEDS: NYSTATIN CREAM 15 GM TUBE TOP SCH ×2 (15:08→22:54)
[2018-09-27] MEDS: cefTRIAXone 1,000 MG in SYRINGE 1 EACH IV SCH (04:05)
[2018-09-27 04:06] LABS: Basophils % 0.6 % (0.0-0.8); Eosinophils # 0.1 10*3/uL (0.0-0.87); Eosinophils % 0.9 % (0.00-10.9); Hematocrit 31.1 VOL% (35.7-47.0); Hemoglobin 9.8 GM/DL (12.0-16.0); Immature Granulocytes % 0.4 %; Immature Granulocytes Absolute 0.02 #; Lymphocytes # 1.8 10*3/uL (1.4-4.0); Lymphocytes % 34.1 % (21.3-54.2); Mean Corpuscular HGB Conc 31.5 GM/DL (32-36); Mean Corpuscular Hemoglobin 30 PG (27-34); Mean Corpuscular Volume 93.7 FL (87-102); Mean Platelet Volume 11.7 FL (9.6-12.0); Monocytes # 0.4 10*3/uL (0.11-0.8); Monocytes % 7.8 % (1.7-12.7); Neutrophils % 56.2 % (38.7-73.9); Platelet Count 204 T/CUMM (130-400); Red Blood Count 3.32 MC/CUMM (3.8-5.5); Red Cell Distribution Width 14.9 % (9.3-17.3); White Blood Count 5.4 T/CUMM (4-12)
[2018-09-27 04:11] LABS: Calcium 9.3 MG/DL (8.5-10.1); Osmolality,Calculated 296.4 MOS/KG (273-304)
[2018-09-27] MEDS: SODIUM CHLORIDE 0.9% 1,000 ML IV SCH ×2 (04:44→18:31)
[2018-09-27] MEDS: MORPHINE 4 MG/1 ML VIAL IV PRN (05:56)
[2018-09-27] MEDS: ENOXAPARIN 60 MG/0.6 ML SYRINGE SUBCUT SCH (06:00)
[2018-09-27] MEDS: INSULIN REGULAR 100 UNIT/ML SUBCUT SCH ×4 (07:30→21:25)
[2018-09-27] MEDS: GABAPENTIN 100 MG CAPSULE PO SCH ×2 (08:50→21:57)
[2018-09-27] MEDS: ASPIRIN EC 81 MG TABLET PO SCH (08:50)
[2018-09-27] MEDS: ROSUVASTATIN 10 MG TABLET PO SCH (08:50)
[2018-09-27] MEDS: FUROSEMIDE 40 MG TABLET PO SCH ×2 (08:50→21:57)
[2018-09-27] MEDS: PANTOPRAZOLE 40 MG TABLET PO SCH (08:51)
[2018-09-27] MEDS: ISOSORBIDE DINITRATE 20 MG TABLET PO SCH ×3 (08:52→21:58)
[2018-09-27] MEDS: DILTIAZEM CD 120 MG CAPSULE PO SCH (08:52)
[2018-09-27] MEDS: METOPROLOL TARTRATE 25 MG TABLET PO SCH ×2 (08:53→21:58)
[2018-09-27] MEDS ORDERED: KETOROLAC 15 MG/1 ML VIAL IV ONE (10:15)
[2018-09-27] MEDS: NYSTATIN CREAM 15 GM TUBE TOP SCH ×2 (14:00→20:00)
[2018-09-27] MEDS: ZINC OXIDE PASTE 113 GM TUBE TOP SCH ×2 (14:00→20:00)
[2018-09-28] MEDS: cefTRIAXone 1,000 MG in SYRINGE 1 EACH IV SCH (03:20)
[2018-09-28 05:20] LABS: Osmolality,Calculated 302.8 MOS/KG (273-304)
[2018-09-28] MEDS: ENOXAPARIN 60 MG/0.6 ML SYRINGE SUBCUT SCH (06:15)
[2018-09-28] MEDS: INSULIN REGULAR 100 UNIT/ML SUBCUT SCH ×4 (07:30→20:24)
[2018-09-28] MEDS: ZINC OXIDE PASTE 113 GM TUBE TOP SCH ×2 (07:45→20:25)
[2018-09-28] MEDS: NYSTATIN CREAM 15 GM TUBE TOP SCH ×2 (07:45→20:30)
[2018-09-28] MEDS: PANTOPRAZOLE 40 MG TABLET PO SCH (09:59)
[2018-09-28] MEDS: ROSUVASTATIN 10 MG TABLET PO SCH (09:59)
[2018-09-28] MEDS: ISOSORBIDE DINITRATE 20 MG TABLET PO SCH ×3 (09:59→20:24)
[2018-09-28] MEDS: GABAPENTIN 100 MG CAPSULE PO SCH ×2 (09:59→20:24)
[2018-09-28] MEDS: DILTIAZEM CD 120 MG CAPSULE PO SCH (10:00)
[2018-09-28] MEDS: FEBUXOSTAT 80 MG TABLET PO SCH (10:02)
[2018-09-28] MEDS: METOPROLOL TARTRATE 25 MG TABLET PO SCH ×2 (10:03→20:24)
[2018-09-28] MEDS: FUROSEMIDE 40 MG TABLET PO SCH ×2 (10:03→20:25)
[2018-09-28] MEDS: ASPIRIN EC 81 MG TABLET PO SCH (10:03)
[2018-09-28] MEDS: MORPHINE 4 MG/1 ML VIAL IV PRN (15:02)
[2018-09-28] MEDS: SODIUM CHLORIDE 0.9% 1,000 ML IV SCH ×2 (15:03→21:18)
[2018-09-29] MEDS: cefTRIAXone 1,000 MG in SYRINGE 1 EACH IV SCH (03:29)
[2018-09-29 04:25] LABS: Calcium 8.9 MG/DL (8.5-10.1); Osmolality,Calculated 305.6 MOS/KG (273-304); Potassium 3.9 MMOL/L (3.5-5.1)
[2018-09-29] MEDS: INSULIN REGULAR 100 UNIT/ML SUBCUT SCH ×4 (07:20→21:35)
[2018-09-29] MEDS ORDERED: ENOXAPARIN 30 MG/0.3 ML SYRINGE SUBCUT SCH (08:30)
[2018-09-29] MEDS: FEBUXOSTAT 80 MG TABLET PO SCH (08:36)
[2018-09-29] MEDS: ROSUVASTATIN 10 MG TABLET PO SCH (08:36)
[2018-09-29] MEDS: METOPROLOL TARTRATE 25 MG TABLET PO SCH ×2 (08:37→20:10)
[2018-09-29] MEDS: DILTIAZEM CD 120 MG CAPSULE PO SCH (08:37)
[2018-09-29] MEDS: ASPIRIN EC 81 MG TABLET PO SCH (08:38)
[2018-09-29] MEDS: ISOSORBIDE DINITRATE 20 MG TABLET PO SCH ×3 (08:38→20:11)
[2018-09-29] MEDS: NYSTATIN CREAM 15 GM TUBE TOP SCH ×2 (08:38→20:12)
[2018-09-29] MEDS: GABAPENTIN 100 MG CAPSULE PO SCH ×2 (08:38→20:12)
[2018-09-29] MEDS: ZINC OXIDE PASTE 113 GM TUBE TOP SCH ×2 (08:38→20:12)
[2018-09-29] MEDS: FUROSEMIDE 40 MG TABLET PO SCH ×2 (08:38→20:10)
[2018-09-29] MEDS: PANTOPRAZOLE 40 MG TABLET PO SCH (08:38)
[2018-09-29] MEDS ORDERED: ENOXAPARIN 60 MG/0.6 ML SYRINGE SUBCUT SCH (09:00)
[2018-09-30] MEDS: cefTRIAXone 1,000 MG in SYRINGE 1 EACH IV SCH (04:04)
[2018-09-30] MEDS: ASPIRIN EC 81 MG TABLET PO SCH (08:44)
[2018-09-30] MEDS: FEBUXOSTAT 80 MG TABLET PO SCH (08:44)
[2018-09-30] MEDS: ROSUVASTATIN 10 MG TABLET PO SCH (08:44)
[2018-09-30] MEDS: ISOSORBIDE DINITRATE 20 MG TABLET PO SCH ×3 (08:45→21:08)
[2018-09-30] MEDS: PANTOPRAZOLE 40 MG TABLET PO SCH (08:45)
[2018-09-30] MEDS: GABAPENTIN 100 MG CAPSULE PO SCH ×2 (08:45→21:07)
[2018-09-30] MEDS: DILTIAZEM CD 120 MG CAPSULE PO SCH (08:45)
[2018-09-30] MEDS: FUROSEMIDE 40 MG TABLET PO SCH ×2 (08:45→21:08)
[2018-09-30] MEDS: NYSTATIN CREAM 15 GM TUBE TOP SCH ×2 (08:46→21:09)
[2018-09-30] MEDS: INSULIN REGULAR 100 UNIT/ML SUBCUT SCH ×4 (08:46→21:08)
[2018-09-30] MEDS: ZINC OXIDE PASTE 113 GM TUBE TOP SCH ×2 (08:47→21:09)
[2018-09-30] MEDS: SODIUM CHLORIDE 0.9% 1,000 ML IV SCH ×2 (14:48→14:49)
[2018-10-01] MEDS: cefTRIAXone 1,000 MG in SYRINGE 1 EACH IV SCH (03:13)
[2018-10-01] MEDS: ASPIRIN EC 81 MG TABLET PO SCH (08:51)
[2018-10-01] MEDS: DILTIAZEM CD 120 MG CAPSULE PO SCH (08:51)
[2018-10-01] MEDS: PANTOPRAZOLE 40 MG TABLET PO SCH (08:51)
[2018-10-01] MEDS: GABAPENTIN 100 MG CAPSULE PO SCH ×2 (08:51→21:48)
[2018-10-01] MEDS: ROSUVASTATIN 10 MG TABLET PO SCH (08:51)
[2018-10-01] MEDS: FUROSEMIDE 40 MG TABLET PO SCH ×2 (08:51→21:48)
[2018-10-01] MEDS: ISOSORBIDE DINITRATE 20 MG TABLET PO SCH ×3 (08:51→21:48)
[2018-10-01] MEDS: FEBUXOSTAT 80 MG TABLET PO SCH (08:52)
[2018-10-01] MEDS: INSULIN REGULAR 100 UNIT/ML SUBCUT SCH ×4 (08:59→21:49)
[2018-10-01] MEDS: SODIUM CHLORIDE 0.9% 1,000 ML IV SCH ×2 (08:59→17:07)
[2018-10-01] MEDS: ZINC OXIDE PASTE 113 GM TUBE TOP SCH ×2 (09:51→21:49)
[2018-10-01] MEDS: NYSTATIN CREAM 15 GM TUBE TOP SCH ×2 (09:52→21:49)
[2018-10-02] MEDS: cefTRIAXone 1,000 MG in SYRINGE 1 EACH IV SCH (04:00)
[2018-10-02] MEDS ORDERED: VITAMIN A & D OINT 56.7 GM TUBE TOP PRN (08:56)
[2018-10-02] MEDS: INSULIN REGULAR 100 UNIT/ML SUBCUT SCH ×2 (09:42→12:30)
[2018-10-02] MEDS: ASPIRIN EC 81 MG TABLET PO SCH (09:48)
[2018-10-02] MEDS: GABAPENTIN 100 MG CAPSULE PO SCH (09:48)
[2018-10-02] MEDS: FUROSEMIDE 40 MG TABLET PO SCH (09:48)
[2018-10-02] MEDS: DILTIAZEM CD 120 MG CAPSULE PO SCH (09:48)
[2018-10-02] MEDS: ROSUVASTATIN 10 MG TABLET PO SCH (09:48)
[2018-10-02] MEDS: FEBUXOSTAT 80 MG TABLET PO SCH (09:49)
[2018-10-02] MEDS: PANTOPRAZOLE 40 MG TABLET PO SCH (09:49)
[2018-10-02] MEDS: ZINC OXIDE PASTE 113 GM TUBE TOP SCH (10:00)
[2018-10-02] MEDS: NYSTATIN CREAM 15 GM TUBE TOP SCH (10:00)
[2018-10-02] MEDS: ISOSORBIDE DINITRATE 20 MG TABLET PO SCH (10:00)
[2018-10-02 12:14] VITALS: BP 107/59
== END 2018-10-02 14:36 | disposition swing bed (61) | DRG 309 ==
LOC: N.CC → N.TELEN 09-28 14:41
PROVIDERS: ADMIT Family Medicine; ATTEND Family Medicine

== ENCOUNTER 2018-10-11 09:22 | Inpatient (IN) ==
[2018-10-11 10:04] LABS: Basophils # 0.1 10*3/uL (0.0-0.2); Basophils % 0.4 % (0.0-0.8); Hematocrit 43.4 VOL% (35.7-47.0); Immature Granulocytes % 0.9 %; Lymphocytes # 1.8 10*3/uL (1.4-4.0); Lymphocytes % 8.1 % (21.3-54.2); Mean Corpuscular HGB Conc 32.3 GM/DL (32-36); Mean Corpuscular Hemoglobin 30 PG (27-34); Mean Corpuscular Volume 93.5 FL (87-102); Mean Platelet Volume 11.2 FL (9.6-12.0); Monocytes % 4.4 % (1.7-12.7); Neutrophils # 19.3 10*3/uL (1.4-7.4); Neutrophils % 86.2 % (38.7-73.9); Platelet Count 167 T/CUMM (130-400); Red Blood Count 4.64 MC/CUMM (3.8-5.5); Red Cell Distribution Width 16.5 % (9.3-17.3); White Blood Count 22.4 T/CUMM (4-12)
[2018-10-11 10:33] LABS: Albumin 2.6 G/DL (3.4-5.0); Bilirubin,Total 1.1 MG/DL (0.2-1.0); Calcium 9.7 MG/DL (8.5-10.1); Osmolality,Calculated 300.7 MOS/KG (273-304); Potassium 4.5 MMOL/L (3.5-5.1); Thyroid Stimulating Hormone 1.49 uIU/ml (0.358-3.74); Total Protein 6.8 G/DL (6.4-8.3)
[2018-10-11] MEDS ORDERED: PIPERACILLIN/TAZOBACTAM 3,375 MG in SODIUM CHLORIDE 0.9% 100 ML IV STA (10:33)
[2018-10-11] MEDS ORDERED: SODIUM CHLORIDE 0.9% 1,000 ML IV STA (10:37)
[2018-10-11 10:39] LABS: Apearance,Urine CLOUDY (Clear); Bacteria,Urine Few /HPF (Few); Bilirubin,Urine Negative (Negative); Blood, Urine Moderate mg/dL (Negative); Glucose,Urine (UA) Negative (Negative); Ketones,Urine Negative (Negative); Mucus,Urine Occasional /LPF (Occasional); Nitrite,Urine Negative (Negative); Protein,Urine 100 MG/DL; RBC,Urine 3 /HPF (0-4); Squamous Epithelial Cell,Urine Occasional /HPF (0-10); Urine Color Yellow (Yellow); Urine Specific Gravity 1.012 (1.001-1.035); WBC,Urine 422 /HPF (0-6)
[2018-10-11 11:18] LABS: Band Neutrophils 9 % (0-10); Hypochromasia 1+; Lymphocytes 6 % (20-55); Microcytosis 1+; Segmented Neutrophils 83 % (50-85); Total Cells Counted 100
[2018-10-11 11:19] LABS: Platelet Estimate Adequate
[2018-10-11] MEDS ORDERED: SODIUM CHLORIDE 0.9% 2,100 ML IV ONE (11:57)
[2018-10-11] MEDS ORDERED: ACETAMINOPHEN 325 MG TABLET PO PRN (13:57)
[2018-10-11] MEDS ORDERED: MAGNESIUM HYDROXIDE SUSP 30 ML UDCUP PO PRN (13:57)
[2018-10-11] MEDS ORDERED: BISACODYL 10 MG SUPP RECTAL PRN (13:57)
[2018-10-11] MEDS ORDERED: NICOTINE 21 MG/24 HR PATCH TRANSDERM PRN (13:57)
[2018-10-11] MEDS ORDERED: ALUMINUM/MAGNES/SIMETH MAX STR 30 ML UDCUP PO PRN (13:57)
[2018-10-11] MEDS ORDERED: traMADol 50 MG TABLET PO PRN (13:57)
[2018-10-11] MEDS ORDERED: BISACODYL 5 MG TABLET PO PRN (13:57)
[2018-10-11] MEDS ORDERED: GLUCAGON 1 MG VIAL IM PRN (13:57)
[2018-10-11] MEDS ORDERED: ZALEPLON 5 MG CAPSULE PO PRN (13:57)
[2018-10-11] MEDS ORDERED: ONDANSETRON 4 MG TABLET PO PRN (13:57)
[2018-10-11] MEDS: SODIUM CHLORIDE 0.9% 1,000 ML IV SCH ×2 (14:08→22:15)
[2018-10-11] MEDS: ISOSORBIDE DINITRATE 20 MG TABLET PO SCH ×2 (14:43→20:48)
[2018-10-11] MEDS: INSULIN LISPRO 100 UNIT/ML SUBCUT SCH ×2 (17:05→20:49)
[2018-10-11] MEDS: ZINC OXIDE PASTE 113 GM TUBE TOP SCH (20:47)
[2018-10-11] MEDS: NYSTATIN CREAM 15 GM TUBE TOP SCH (20:47)
[2018-10-11] MEDS: GABAPENTIN 100 MG CAPSULE PO SCH (20:47)
[2018-10-11] MEDS: MEGESTROL 40 MG TABLET PO SCH (20:48)
[2018-10-11] MEDS: METOPROLOL TARTRATE 25 MG TABLET PO SCH (20:48)
[2018-10-11] MEDS: DOCUSATE SODIUM 100 MG CAPSULE PO SCH (20:48)
[2018-10-11] MEDS: FUROSEMIDE 40 MG TABLET PO SCH (20:48)
[2018-10-11] MEDS: PIPERACILLIN/TAZOBACTAM 3,375 MG in SODIUM CHLORIDE 0.9% 100 ML IV SCH (22:15)
[2018-10-12] MEDS: MORPHINE 4 MG/1 ML VIAL IV PRN ×4 (00:30→10:01)
[2018-10-12 05:41] LABS: Basophils % 0.2 % (0.0-0.8); Hematocrit 38.4 VOL% (35.7-47.0); Hemoglobin 12.2 GM/DL (12.0-16.0); Immature Granulocytes % 1.4 %; Immature Granulocytes Absolute 0.24 #; Lymphocytes % 5.7 % (21.3-54.2); Mean Corpuscular HGB Conc 31.8 GM/DL (32-36); Mean Corpuscular Hemoglobin 31 PG (27-34); Mean Corpuscular Volume 96.2 FL (87-102); Mean Platelet Volume 11.3 FL (9.6-12.0); Monocytes # 0.7 10*3/uL (0.11-0.8); Monocytes % 4.2 % (1.7-12.7); Neutrophils # 15.5 10*3/uL (1.4-7.4); Neutrophils % 88.5 % (38.7-73.9); Platelet Count 132 T/CUMM (130-400); Red Blood Count 3.99 MC/CUMM (3.8-5.5); Red Cell Distribution Width 17.1 % (9.3-17.3); White Blood Count 17.5 T/CUMM (4-12)
[2018-10-12 06:00] LABS: Calcium 9.1 MG/DL (8.5-10.1); Osmolality,Calculated 313.7 MOS/KG (273-304); Potassium 4.2 MMOL/L (3.5-5.1)
[2018-10-12 06:03] LABS: Bilirubin,Total 1.4 MG/DL (0.2-1.0); Osmolality,Calculated 313.7 MOS/KG (273-304); Potassium 4.3 MMOL/L (3.5-5.1); Total Protein 5.8 G/DL (6.4-8.3)
[2018-10-12 06:19] LABS: Band Neutrophils 5 % (0-10); Lymphocytes 8 % (20-55); Segmented Neutrophils 84 % (50-85); Total Cells Counted 100
[2018-10-12 06:20] LABS: Anisocytosis 1+; Burr Cells Slight; Microcytosis 1+; Ovalocytes Slight; Platelet Estimate Adequate
[2018-10-12] MEDS: ROSUVASTATIN 10 MG TABLET PO SCH (09:55)
[2018-10-12] MEDS: ASPIRIN EC 81 MG TABLET PO SCH (09:55)
[2018-10-12] MEDS: METOPROLOL TARTRATE 25 MG TABLET PO SCH ×2 (09:56→20:57)
[2018-10-12] MEDS: DOCUSATE SODIUM 100 MG CAPSULE PO SCH ×2 (09:56→20:52)
[2018-10-12] MEDS: predniSONE 20 MG TABLET PO SCH (09:56)
[2018-10-12] MEDS: FUROSEMIDE 40 MG TABLET PO SCH ×2 (09:56→20:52)
[2018-10-12] MEDS: ISOSORBIDE DINITRATE 20 MG TABLET PO SCH ×3 (09:56→20:52)
[2018-10-12] MEDS: GABAPENTIN 100 MG CAPSULE PO SCH ×2 (09:57→20:52)
[2018-10-12] MEDS: ZINC OXIDE PASTE 113 GM TUBE TOP SCH ×2 (09:57→20:53)
[2018-10-12] MEDS: NYSTATIN CREAM 15 GM TUBE TOP SCH ×2 (09:57→20:53)
[2018-10-12] MEDS: INSULIN LISPRO 100 UNIT/ML SUBCUT SCH ×4 (09:57→21:11)
[2018-10-12] MEDS: PANTOPRAZOLE 40 MG TABLET PO SCH (09:57)
[2018-10-12] MEDS: SODIUM CHLORIDE 0.9% 1,000 ML IV SCH ×3 (09:59→14:12)
[2018-10-12] MEDS: FEBUXOSTAT 80 MG TABLET PO SCH (10:00)
[2018-10-12] MEDS: MEGESTROL 40 MG TABLET PO SCH ×2 (10:00→20:52)
[2018-10-12] MEDS: PIPERACILLIN/TAZOBACTAM 3,375 MG in SODIUM CHLORIDE 0.9% 100 ML IV SCH (10:18)
[2018-10-12] MEDS ORDERED: LEVOFLOXACIN INJ 500 MG in PREMIX 1 EACH IV ONE (12:24)
[2018-10-12] MEDS: SODIUM BICARB INJ 50 MEQ in SODIUM CHLORIDE 0.9% 1,000 ML IV SCH ×2 (13:59→22:23)
[2018-10-12] MEDS ORDERED: FUROSEMIDE 40 MG/4 ML VIAL IV ONE (14:05)
[2018-10-13 07:11] LABS: Basophils % 0.4 % (0.0-0.8); Hematocrit 38.5 VOL% (35.7-47.0); Immature Granulocytes % 0.6 %; Immature Granulocytes Absolute 0.06 #; Lymphocytes # 0.6 10*3/uL (1.4-4.0); Lymphocytes % 5.9 % (21.3-54.2); Mean Corpuscular HGB Conc 31.2 GM/DL (32-36); Mean Corpuscular Hemoglobin 30 PG (27-34); Mean Platelet Volume 11.1 FL (9.6-12.0); Monocytes # 0.6 10*3/uL (0.11-0.8); Monocytes % 5.9 % (1.7-12.7); Neutrophils # 8.2 10*3/uL (1.4-7.4); Neutrophils % 87.2 % (38.7-73.9); Platelet Count 122 T/CUMM (130-400); Red Blood Count 4.01 MC/CUMM (3.8-5.5); Red Cell Distribution Width 17.5 % (9.3-17.3); White Blood Count 9.4 T/CUMM (4-12)
[2018-10-13 07:39] LABS: Albumin 1.8 G/DL (3.4-5.0); Calcium 8.8 MG/DL (8.5-10.1); Osmolality,Calculated 319.3 MOS/KG (273-304); Potassium 4.4 MMOL/L (3.5-5.1); Total Protein 5.7 G/DL (6.4-8.3)
[2018-10-13 07:45] LABS: Band Neutrophils 7 % (0-10); Lymphocytes 8 % (20-55); Segmented Neutrophils 77 % (50-85); Total Cells Counted 100
[2018-10-13] MEDS ORDERED: SODIUM CHLORIDE 0.9% 500 ML IV ONE (07:45)
[2018-10-13 07:49] LABS: Hypochromasia 1+; Ovalocytes Slight; Platelet Estimate Normal
[2018-10-13 07:50] LABS: Burr Cells Slight; Microcytosis 1+
[2018-10-13] MEDS: INSULIN LISPRO 100 UNIT/ML SUBCUT SCH ×4 (08:56→20:58)
[2018-10-13] MEDS: FUROSEMIDE 40 MG TABLET PO SCH ×2 (08:58→20:59)
[2018-10-13] MEDS: ISOSORBIDE DINITRATE 20 MG TABLET PO SCH ×3 (08:58→20:59)
[2018-10-13] MEDS: ASPIRIN EC 81 MG TABLET PO SCH (08:59)
[2018-10-13] MEDS: ROSUVASTATIN 10 MG TABLET PO SCH (08:59)
[2018-10-13] MEDS: DOCUSATE SODIUM 100 MG CAPSULE PO SCH ×2 (08:59→20:58)
[2018-10-13] MEDS: ZINC OXIDE PASTE 113 GM TUBE TOP SCH ×2 (08:59→20:58)
[2018-10-13] MEDS: NYSTATIN CREAM 15 GM TUBE TOP SCH ×2 (09:00→21:00)
[2018-10-13] MEDS: predniSONE 20 MG TABLET PO SCH (09:00)
[2018-10-13] MEDS: MEGESTROL 40 MG TABLET PO SCH ×2 (09:00→20:59)
[2018-10-13] MEDS: FEBUXOSTAT 80 MG TABLET PO SCH (09:00)
[2018-10-13] MEDS: PANTOPRAZOLE 40 MG TABLET PO SCH (09:00)
[2018-10-13] MEDS: GABAPENTIN 100 MG CAPSULE PO SCH ×2 (09:00→21:00)
[2018-10-13] MEDS: METOPROLOL TARTRATE 25 MG TABLET PO SCH ×2 (09:00→20:59)
[2018-10-13] MEDS: SODIUM BICARB INJ 50 MEQ in SODIUM CHLORIDE 0.9% 1,000 ML IV SCH ×2 (12:37→20:57)
[2018-10-13] MEDS: MORPHINE 4 MG/1 ML VIAL IV PRN (13:01)
[2018-10-13 18:31] LABS: Apearance,Urine CLOUDY (Clear); Bacteria,Urine Occasional /HPF (Few); Bilirubin,Urine Negative (Negative); Blood, Urine Moderate mg/dL (Negative); Glucose,Urine (UA) Negative (Negative); Ketones,Urine Negative (Negative); Mucus,Urine Occasional /LPF (Occasional); Nitrite,Urine Negative (Negative); Protein,Urine 30 MG/DL; RBC,Urine 14 /HPF (0-4); Squamous Epithelial Cell,Urine Occasional /HPF (0-10); Urine Specific Gravity 1.013 (1.001-1.035); WBC,Urine 407 /HPF (0-6)
[2018-10-13 18:32] LABS: Urine Color Dark yellow (Yellow)
[2018-10-14] MEDS: SODIUM BICARB INJ 50 MEQ in SODIUM CHLORIDE 0.9% 1,000 ML IV SCH ×3 (04:59→22:00)
[2018-10-14 05:44] LABS: Basophils # 0.1 10*3/uL (0.0-0.2); Basophils % 0.8 % (0.0-0.8); Hematocrit 36.7 VOL% (35.7-47.0); Hemoglobin 11.4 GM/DL (12.0-16.0); Immature Granulocytes % 2.4 %; Immature Granulocytes Absolute 0.18 #; Lymphocytes # 0.4 10*3/uL (1.4-4.0); Lymphocytes % 5.3 % (21.3-54.2); Mean Corpuscular HGB Conc 31.1 GM/DL (32-36); Mean Corpuscular Hemoglobin 30 PG (27-34); Mean Corpuscular Volume 95.8 FL (87-102); Mean Platelet Volume 11.7 FL (9.6-12.0); Monocytes # 0.4 10*3/uL (0.11-0.8); Monocytes % 5.5 % (1.7-12.7); NRBC # 0.04 10*3/uL; Neutrophils # 6.5 10*3/uL (1.4-7.4); Platelet Count 124 T/CUMM (130-400); Red Blood Count 3.83 MC/CUMM (3.8-5.5); Red Cell Distribution Width 18.3 % (9.3-17.3); White Blood Count 7.6 T/CUMM (4-12)
[2018-10-14 06:05] LABS: Band Neutrophils 5 % (0-10); Burr Cells Slight; Hypochromasia 1+; Lymphocytes 2 % (20-55); Microcytosis 1+; Platelet Estimate Adequate; Segmented Neutrophils 88 % (50-85); Total Cells Counted 100
[2018-10-14] MEDS: INSULIN LISPRO 100 UNIT/ML SUBCUT SCH ×4 (07:35→21:56)
[2018-10-14] MEDS: DOCUSATE SODIUM 100 MG CAPSULE PO SCH ×2 (09:11→21:56)
[2018-10-14] MEDS: ASPIRIN EC 81 MG TABLET PO SCH (09:11)
[2018-10-14] MEDS: ROSUVASTATIN 10 MG TABLET PO SCH (09:11)
[2018-10-14] MEDS: MEGESTROL 40 MG TABLET PO SCH ×2 (09:12→21:58)
[2018-10-14] MEDS: FUROSEMIDE 40 MG TABLET PO SCH (09:12)
[2018-10-14] MEDS: ISOSORBIDE DINITRATE 20 MG TABLET PO SCH ×3 (09:12→22:00)
[2018-10-14] MEDS: METOPROLOL TARTRATE 25 MG TABLET PO SCH ×2 (09:12→21:59)
[2018-10-14] MEDS: GABAPENTIN 100 MG CAPSULE PO SCH ×2 (09:12→21:57)
[2018-10-14] MEDS: PANTOPRAZOLE 40 MG TABLET PO SCH (09:12)
[2018-10-14] MEDS: predniSONE 20 MG TABLET PO SCH (09:12)
[2018-10-14] MEDS: FEBUXOSTAT 80 MG TABLET PO SCH (09:12)
[2018-10-14] MEDS: NYSTATIN CREAM 15 GM TUBE TOP SCH ×2 (09:15→21:58)
[2018-10-14] MEDS: ZINC OXIDE PASTE 113 GM TUBE TOP SCH ×2 (09:15→21:56)
[2018-10-14] MEDS: LEVOFLOXACIN INJ 250 MG in PREMIX 1 EACH IV SCH (13:09)
[2018-10-14] MEDS ORDERED: SODIUM CHLORIDE 0.9% 500 ML IV ONE ×3 (16:33→19:14)
[2018-10-14] MEDS ORDERED: metroNIDAZOLE INJ 500 MG in PREMIX 1 EACH IV SCH (17:00)
[2018-10-14] MEDS: metroNIDAZOLE INJ 500 MG in PREMIX 1 EACH IV SCH (18:01)
[2018-10-14] MEDS ORDERED: DIGOXIN 0.5 MG/2 ML AMP IM ONE (19:21)
[2018-10-14] MEDS: MORPHINE 4 MG/1 ML VIAL IV PRN (19:55)
[2018-10-14] MEDS ORDERED: ADENOSINE 6 MG/2 ML VIAL ONE (20:29)
[2018-10-14] MEDS ORDERED: ADENOSINE 6 MG/2 ML VIAL IV ONE (20:38)
[2018-10-14] MEDS: dilTIAZem Drip 125 MG/125 ML PREMIX IV SCH (21:00)
[2018-10-15] MEDS: metroNIDAZOLE INJ 500 MG in PREMIX 1 EACH IV SCH ×3 (01:48→16:56)
[2018-10-15] MEDS: SODIUM BICARB INJ 50 MEQ in SODIUM CHLORIDE 0.9% 1,000 ML IV SCH ×2 (05:44→13:55)
[2018-10-15] MEDS: MORPHINE 4 MG/1 ML VIAL IV PRN ×2 (07:11→14:54)
[2018-10-15] MEDS: dilTIAZem Drip 125 MG/125 ML PREMIX IV SCH ×2 (07:13→22:10)
[2018-10-15] MEDS: INSULIN LISPRO 100 UNIT/ML SUBCUT SCH ×4 (08:20→21:11)
[2018-10-15] MEDS: DOCUSATE SODIUM 100 MG CAPSULE PO SCH ×2 (09:17→21:11)
[2018-10-15] MEDS: ASPIRIN EC 81 MG TABLET PO SCH (09:17)
[2018-10-15] MEDS: ZINC OXIDE PASTE 113 GM TUBE TOP SCH ×2 (09:17→21:11)
[2018-10-15] MEDS: METOPROLOL TARTRATE 25 MG TABLET PO SCH ×2 (09:18→21:12)
[2018-10-15] MEDS: ISOSORBIDE DINITRATE 20 MG TABLET PO SCH ×3 (09:18→21:11)
[2018-10-15] MEDS: PANTOPRAZOLE 40 MG TABLET PO SCH (09:18)
[2018-10-15] MEDS: FEBUXOSTAT 80 MG TABLET PO SCH (09:18)
[2018-10-15] MEDS: MEGESTROL 40 MG TABLET PO SCH ×2 (09:18→21:12)
[2018-10-15] MEDS: GABAPENTIN 100 MG CAPSULE PO SCH ×2 (09:18→21:12)
[2018-10-15] MEDS: predniSONE 20 MG TABLET PO SCH (09:18)
[2018-10-15] MEDS: NYSTATIN CREAM 15 GM TUBE TOP SCH ×2 (11:55→21:12)
[2018-10-15] MEDS ORDERED: FUROSEMIDE 40 MG/4 ML VIAL IV ONE (16:21)
[2018-10-16] MEDS: SODIUM BICARB INJ 50 MEQ in SODIUM CHLORIDE 0.9% 1,000 ML IV SCH (00:17)
[2018-10-16] MEDS: metroNIDAZOLE INJ 500 MG in PREMIX 1 EACH IV SCH ×3 (03:35→16:33)
[2018-10-16] MEDS: INSULIN LISPRO 100 UNIT/ML SUBCUT SCH ×4 (09:55→21:52)
[2018-10-16] MEDS: ZINC OXIDE PASTE 113 GM TUBE TOP SCH ×2 (09:56→21:18)
[2018-10-16] MEDS: NYSTATIN CREAM 15 GM TUBE TOP SCH ×2 (09:56→21:18)
[2018-10-16] MEDS: ISOSORBIDE DINITRATE 20 MG TABLET PO SCH ×3 (11:38→21:17)
[2018-10-16] MEDS: MEGESTROL 40 MG TABLET PO SCH ×2 (11:38→21:18)
[2018-10-16] MEDS: DOCUSATE SODIUM 100 MG CAPSULE PO SCH ×2 (11:38→21:16)
[2018-10-16] MEDS: ASPIRIN EC 81 MG TABLET PO SCH (11:38)
[2018-10-16] MEDS: GABAPENTIN 100 MG CAPSULE PO SCH ×2 (11:39→21:16)
[2018-10-16] MEDS: FEBUXOSTAT 80 MG TABLET PO SCH (11:39)
[2018-10-16] MEDS: METOPROLOL TARTRATE 25 MG TABLET PO SCH ×2 (11:39→21:17)
[2018-10-16] MEDS: predniSONE 20 MG TABLET PO SCH (11:39)
[2018-10-16] MEDS: PANTOPRAZOLE 40 MG TABLET PO SCH (11:39)
[2018-10-16] MEDS: LEVOFLOXACIN INJ 250 MG in PREMIX 1 EACH IV SCH (14:06)
[2018-10-16 14:44] LABS: Calcium 9.1 MG/DL (8.5-10.1); Osmolality,Calculated 349.5 MOS/KG (273-304); Potassium 3.5 MMOL/L (3.5-5.1)
[2018-10-16 15:36] LABS: Basophils % 0.2 % (0.0-0.8); Hemoglobin 9.9 GM/DL (12.0-16.0); Immature Granulocytes % 0.9 %; Immature Granulocytes Absolute 0.07 #; Lymphocytes # 0.6 10*3/uL (1.4-4.0); Mean Corpuscular Hemoglobin 30 PG (27-34); Mean Corpuscular Volume 99.7 FL (87-102); Monocytes # 0.3 10*3/uL (0.11-0.8); Monocytes % 3.4 % (1.7-12.7); NRBC # 0.04 10*3/uL; Neutrophils # 7.2 10*3/uL (1.4-7.4); Neutrophils % 88.5 % (38.7-73.9); Platelet Count 97 T/CUMM (130-400); Red Blood Count 3.31 MC/CUMM (3.8-5.5); Red Cell Distribution Width 18.5 % (9.3-17.3); White Blood Count 8.2 T/CUMM (4-12)
[2018-10-16] MEDS: SODIUM CHLORIDE 0.45% 1,000 ML IV SCH (15:44)
[2018-10-16 17:39] LABS: Band Neutrophils 4 % (0-10); Lymphocytes 5 % (20-55); Nucleated Red Blood Cells 1 (0-5); Segmented Neutrophils 88 % (50-85); Total Cells Counted 100
[2018-10-16 17:40] LABS: Platelet Estimate Decreased
[2018-10-16] MEDS ORDERED: DILTIAZEM 50 MG/10 ML VIAL IV ONE (18:36)
[2018-10-16] MEDS: ALBUTEROL/IPRATROPIUM 3 ML NEB RESP TX SCH (18:50)
[2018-10-16] MEDS: dilTIAZem Drip 125 MG/125 ML PREMIX IV SCH (22:07)
[2018-10-17] MEDS: ALBUTEROL/IPRATROPIUM 3 ML NEB RESP TX SCH ×5 (00:13→23:42)
[2018-10-17] MEDS: metroNIDAZOLE INJ 500 MG in PREMIX 1 EACH IV SCH ×3 (00:50→17:20)
[2018-10-17] MEDS: SODIUM CHLORIDE 0.45% 1,000 ML IV SCH ×2 (02:00→13:29)
[2018-10-17 05:12] LABS: Basophils % 0.2 % (0.0-0.8); Eosinophils % 0.1 % (0.00-10.9); Hematocrit 32.8 VOL% (35.7-47.0); Hemoglobin 9.8 GM/DL (12.0-16.0); Immature Granulocytes % 1.4 %; Immature Granulocytes Absolute 0.13 #; Lymphocytes # 0.7 10*3/uL (1.4-4.0); Lymphocytes % 7.3 % (21.3-54.2); Mean Corpuscular HGB Conc 29.9 GM/DL (32-36); Mean Corpuscular Hemoglobin 30 PG (27-34); Mean Corpuscular Volume 99.1 FL (87-102); Monocytes # 0.4 10*3/uL (0.11-0.8); Monocytes % 3.9 % (1.7-12.7); NRBC # 0.04 10*3/uL; Neutrophils % 87.1 % (38.7-73.9); Platelet Count 103 T/CUMM (130-400); Red Blood Count 3.31 MC/CUMM (3.8-5.5); Red Cell Distribution Width 18.6 % (9.3-17.3); White Blood Count 9.2 T/CUMM (4-12)
[2018-10-17 05:34] LABS: Calcium 8.5 MG/DL (8.5-10.1); Osmolality,Calculated 354.6 MOS/KG (273-304)
[2018-10-17 05:38] LABS: Band Neutrophils 4 % (0-10); Lymphocytes 10 % (20-55); Nucleated Red Blood Cells 2 (0-5); Platelet Estimate Decreased; Segmented Neutrophils 85 % (50-85); Total Cells Counted 100
[2018-10-17 05:40] LABS: Anisocytosis 1+; Macrocytosis 1+
[2018-10-17 05:47] LABS: Prealbumin 8.7 MG/DL (20-40)
[2018-10-17] MEDS: INSULIN LISPRO 100 UNIT/ML SUBCUT SCH ×4 (10:05→21:59)
[2018-10-17] MEDS: MULTIVITAMIN LIQUID (CENTRUM) 60 ML BOTTLE PEG SCH (10:05)
[2018-10-17] MEDS: ASPIRIN EC 81 MG TABLET PO SCH (10:05)
[2018-10-17] MEDS: ZINC OXIDE PASTE 113 GM TUBE TOP SCH ×2 (10:06→22:00)
[2018-10-17] MEDS: DOCUSATE SODIUM 100 MG CAPSULE PO SCH ×2 (10:06→22:00)
[2018-10-17] MEDS: predniSONE 20 MG TABLET PO SCH (10:10)
[2018-10-17] MEDS: GABAPENTIN 100 MG CAPSULE PO SCH ×2 (10:10→22:01)
[2018-10-17] MEDS: PANTOPRAZOLE 40 MG TABLET PO SCH (10:10)
[2018-10-17] MEDS: ISOSORBIDE DINITRATE 20 MG TABLET PO SCH ×3 (10:10→22:00)
[2018-10-17] MEDS: FEBUXOSTAT 80 MG TABLET PO SCH (10:10)
[2018-10-17] MEDS: NYSTATIN CREAM 15 GM TUBE TOP SCH ×2 (10:10→22:01)
[2018-10-17] MEDS: MEGESTROL 40 MG TABLET PO SCH ×2 (10:10→22:07)
[2018-10-17] MEDS: METOPROLOL TARTRATE 25 MG TABLET PO SCH ×2 (10:10→22:00)
[2018-10-17] MEDS: POTASSIUM CHLORIDE 20 MEQ/15 ML UDCUP PER TUBE PRN ×3 (17:20→22:07)
[2018-10-17] MEDS: dilTIAZem Drip 125 MG/125 ML PREMIX IV SCH (21:35)
[2018-10-18] MEDS: metroNIDAZOLE INJ 500 MG in PREMIX 1 EACH IV SCH ×3 (02:07→18:00)
[2018-10-18] MEDS: SODIUM CHLORIDE 0.45% 1,000 ML IV SCH ×4 (02:11→18:31)
[2018-10-18] MEDS: POTASSIUM CHLORIDE 20 MEQ/15 ML UDCUP PER TUBE PRN (02:14)
[2018-10-18 04:24] LABS: Basophils % 0.3 % (0.0-0.8); Hematocrit 35.4 VOL% (35.7-47.0); Hemoglobin 10.8 GM/DL (12.0-16.0); Immature Granulocytes % 0.5 %; Immature Granulocytes Absolute 0.06 #; Lymphocytes # 0.9 10*3/uL (1.4-4.0); Lymphocytes % 7.3 % (21.3-54.2); Mean Corpuscular HGB Conc 30.5 GM/DL (32-36); Mean Corpuscular Hemoglobin 30 PG (27-34); Mean Corpuscular Volume 98.1 FL (87-102); Monocytes # 0.4 10*3/uL (0.11-0.8); Monocytes % 3.2 % (1.7-12.7); NRBC # 0.03 10*3/uL; Neutrophils # 10.5 10*3/uL (1.4-7.4); Neutrophils % 88.7 % (38.7-73.9); Platelet Count 108 T/CUMM (130-400); Red Blood Count 3.61 MC/CUMM (3.8-5.5); Red Cell Distribution Width 18.5 % (9.3-17.3); White Blood Count 11.8 T/CUMM (4-12)
[2018-10-18 04:54] LABS: Calcium 8.5 MG/DL (8.5-10.1); Osmolality,Calculated 335.3 MOS/KG (273-304); Potassium 4.4 MMOL/L (3.5-5.1)
[2018-10-18 04:54] LABS: Calcium 8.4 MG/DL (8.5-10.1); Osmolality,Calculated 338.1 MOS/KG (273-304); Potassium 4.5 MMOL/L (3.5-5.1)
[2018-10-18] MEDS: ALBUTEROL/IPRATROPIUM 3 ML NEB RESP TX SCH ×3 (07:00→19:35)
[2018-10-18] MEDS: INSULIN LISPRO 100 UNIT/ML SUBCUT SCH ×4 (09:22→22:37)
[2018-10-18] MEDS: MULTIVITAMIN LIQUID (CENTRUM) 60 ML BOTTLE PEG SCH (09:23)
[2018-10-18] MEDS: ZINC OXIDE PASTE 113 GM TUBE TOP SCH ×2 (09:23→22:38)
[2018-10-18] MEDS: DOCUSATE SODIUM 100 MG CAPSULE PO SCH ×2 (09:23→22:37)
[2018-10-18] MEDS: ISOSORBIDE DINITRATE 20 MG TABLET PO SCH ×3 (09:23→22:38)
[2018-10-18] MEDS: ASPIRIN EC 81 MG TABLET PO SCH (09:23)
[2018-10-18] MEDS: GABAPENTIN 100 MG CAPSULE PO SCH ×2 (09:24→22:39)
[2018-10-18] MEDS: NYSTATIN CREAM 15 GM TUBE TOP SCH ×2 (09:24→22:37)
[2018-10-18] MEDS: predniSONE 20 MG TABLET PO SCH (09:24)
[2018-10-18] MEDS: MEGESTROL 40 MG TABLET PO SCH ×2 (09:24→22:38)
[2018-10-18] MEDS: FEBUXOSTAT 80 MG TABLET PO SCH (09:24)
[2018-10-18] MEDS: METOPROLOL TARTRATE 25 MG TABLET PO SCH ×2 (09:24→21:03)
[2018-10-18] MEDS: PANTOPRAZOLE 40 MG TABLET PO SCH (09:24)
[2018-10-18] MEDS ORDERED: FLUCONAZOLE 40 MG/ML 35 ML/BOTTLE PO ONE (11:58)
[2018-10-18] MEDS: dilTIAZem Drip 125 MG/125 ML PREMIX IV SCH (22:36)
[2018-10-19] MEDS: ALBUTEROL/IPRATROPIUM 3 ML NEB RESP TX SCH ×4 (01:19→19:18)
[2018-10-19 04:37] LABS: Basophils % 0.2 % (0.0-0.8); Hematocrit 34.6 VOL% (35.7-47.0); Hemoglobin 10.5 GM/DL (12.0-16.0); Immature Granulocytes % 0.6 %; Immature Granulocytes Absolute 0.06 #; Lymphocytes # 0.9 10*3/uL (1.4-4.0); Lymphocytes % 8.7 % (21.3-54.2); Mean Corpuscular HGB Conc 30.3 GM/DL (32-36); Mean Corpuscular Hemoglobin 30 PG (27-34); Mean Corpuscular Volume 97.7 FL (87-102); Mean Platelet Volume 12.4 FL (9.6-12.0); Monocytes # 0.4 10*3/uL (0.11-0.8); Monocytes % 3.7 % (1.7-12.7); NRBC # 0.02 10*3/uL; Neutrophils # 8.6 10*3/uL (1.4-7.4); Neutrophils % 86.8 % (38.7-73.9); Red Blood Count 3.54 MC/CUMM (3.8-5.5); Red Cell Distribution Width 18.2 % (9.3-17.3); White Blood Count 9.9 T/CUMM (4-12)
[2018-10-19 04:51] LABS: Platelet Count 81 T/CUMM (130-400)
[2018-10-19 05:01] LABS: Calcium 8.2 MG/DL (8.5-10.1); Osmolality,Calculated 318.3 MOS/KG (273-304); Potassium 4.4 MMOL/L (3.5-5.1)
[2018-10-19] MEDS: SODIUM CHLORIDE 0.45% 1,000 ML IV SCH (05:21)
[2018-10-19] MEDS: metroNIDAZOLE INJ 500 MG in PREMIX 1 EACH IV SCH ×2 (05:29→08:53)
[2018-10-19 06:23] LABS: Band Neutrophils 2 % (0-10); Lymphocytes 6 % (20-55); Metamyelocytes 1 %; Segmented Neutrophils 89 % (50-85); Total Cells Counted 100
[2018-10-19 06:24] LABS: Burr Cells 1+; Ovalocytes 1+; Platelet Estimate Decreased
[2018-10-19 06:25] LABS: Hypochromasia Slight; Polychromasia Few
[2018-10-19] MEDS: ZINC OXIDE PASTE 113 GM TUBE TOP SCH (07:20)
[2018-10-19] MEDS: INSULIN LISPRO 100 UNIT/ML SUBCUT SCH ×2 (09:24→11:42)
[2018-10-19] MEDS: DOCUSATE SODIUM 100 MG CAPSULE PO SCH (09:25)
[2018-10-19] MEDS: MEGESTROL 40 MG TABLET PO SCH (09:25)
[2018-10-19] MEDS: ASPIRIN EC 81 MG TABLET PO SCH (09:25)
[2018-10-19] MEDS: FEBUXOSTAT 80 MG TABLET PO SCH (09:25)
[2018-10-19] MEDS: MULTIVITAMIN LIQUID (CENTRUM) 60 ML BOTTLE PEG SCH (09:25)
[2018-10-19] MEDS: PANTOPRAZOLE 40 MG TABLET PO SCH (09:25)
[2018-10-19] MEDS: NYSTATIN CREAM 15 GM TUBE TOP SCH (09:25)
[2018-10-19] MEDS: ISOSORBIDE DINITRATE 20 MG TABLET PO SCH (09:25)
[2018-10-19] MEDS: predniSONE 20 MG TABLET PO SCH (09:25)
[2018-10-19] MEDS: METOPROLOL TARTRATE 25 MG TABLET PO SCH (09:25)
[2018-10-19] MEDS: GABAPENTIN 100 MG CAPSULE PO SCH (09:25)
[2018-10-19] MEDS: MORPHINE 4 MG/1 ML VIAL IV PRN (14:03)
[2018-10-19] MEDS ORDERED: FLUCONAZOLE 40 MG/ML 35 ML/BOTTLE PO SCH (18:00)
[2018-10-20] MEDS: ALBUTEROL/IPRATROPIUM 3 ML NEB RESP TX SCH ×4 (01:30→23:13)
[2018-10-20] MEDS: MORPHINE 4 MG/1 ML VIAL IV PRN ×2 (06:18→09:58)
[2018-10-21] MEDS: ALBUTEROL/IPRATROPIUM 3 ML NEB RESP TX SCH ×4 (01:20→19:31)
[2018-10-22] MEDS: ALBUTEROL/IPRATROPIUM 3 ML NEB RESP TX SCH ×4 (00:51→19:32)
[2018-10-22] MEDS: MORPHINE 4 MG/1 ML VIAL IV PRN ×3 (01:26→14:59)
[2018-10-23] MEDS: ALBUTEROL/IPRATROPIUM 3 ML NEB RESP TX SCH ×4 (03:11→20:42)
[2018-10-23] MEDS: MORPHINE 4 MG/1 ML VIAL IV PRN (09:05)
[2018-10-23] MEDS: LORazepam 2 MG/1 ML VIAL IV PRN (09:48)
[2018-10-24] MEDS: ALBUTEROL/IPRATROPIUM 3 ML NEB RESP TX SCH ×4 (01:40→19:15)
[2018-10-24] MEDS: MORPHINE 4 MG/1 ML VIAL IV PRN (09:15)
[2018-10-24] MEDS: LORazepam 2 MG/1 ML VIAL IV PRN (11:05)
[2018-10-25] MEDS: ALBUTEROL/IPRATROPIUM 3 ML NEB RESP TX SCH ×5 (01:10→19:59)
[2018-10-25] MEDS: MORPHINE 4 MG/1 ML VIAL IV PRN (10:16)
[2018-10-26] MEDS: ALBUTEROL/IPRATROPIUM 3 ML NEB RESP TX SCH ×3 (01:35→13:10)
[2018-10-26 08:58] VITALS: BP 128/60
== END 2018-10-26 11:47 | disposition expired | DRG 871 ==
LOC: EDUNIT# → EDBD → N.ED 09:22 → N.EDINP 11:05 → N.2E 13:13 → N.TELES 10-14 20:44 → N.4E 10-20 17:53
PROVIDERS: ADMIT Family Medicine; ATTEND Family Medicine